=== PATIENT | female | born 1980 | race Caucasian/White ===

== ENCOUNTER → 2019-01-10 18:31 | Outpatient (CLI) | payer OTHER, SELFPAY ==
[2019-01-15 10:17] LABS: HPV Reflexed? NOT INDICATED
== END ==
PROVIDERS: Family Provider Family Medicine; PCP Family Medicine; Referring Provider Obstetrics & Gynecology; Visit Provider Obstetrics & Gynecology
DX: Z12.4 Encounter for screening for malignant neoplasm of cervix (principal)
CPT/HCPCS: 88175; G0145

== ENCOUNTER → 2020-05-15 | Outpatient (CLI) | payer OTHER, SELFPAY ==
--- NOTE | 2020-05-15 14:53 | BI_ITS ---
MAMMOGRAPHY - BILATERAL SCREENING REASON FOR EXAM: Female, 39 years old. Routine annual screening examination. PERTINENT HISTORY: Mother with breast cancer. Remote the left excisional breast biopsy. TECHNIQUE: Digital bilateral breast zak (3D mammographic acquisition) in the CC and MLO projections. 2-D mediolateral oblique (MLO) and craniocaudad (CC) views of both breasts were obtained. CAD: Full Field Digital Mammography with Computer Added Detection was performed. COMPARISON: Comparison is made with prior outside examination dated May 25, 2017. FINDINGS: Breast Composition: The breasts are extremely dense, which lowers the sensitivity of mammography. There are no dominant masses or suspicious calcifications. No other significant abnormalities are identified. There has been no significant change since the prior study. BI/SCREEN MAMM (CAD) W/ZAK BILAT IMPRESSION: Stable bilateral screening mammogram. Yearly follow-up mammogram recommended. (A) ASSESSMENT CATEGORY: BIRADS Category 1: Negative. A letter regarding these results will be sent to the patient by the facility within 30 days. Approximately 10% of breast cancers are not detected by mammography. A normal mammogram should not delay biopsy of a clinically suspicious abnormality. [id number] Electronically Signed: Nathan Spivey, at 7:59 EDT , Service support ,
== END | disposition home or self-care (01) ==
LOC: OPBI 14:50
PROVIDERS: PCP Family Medicine; Referring Provider Obstetrics & Gynecology; Visit Provider Obstetrics & Gynecology
DX: Z12.31 Encounter for screening mammogram for malignant neoplasm of breast (principal)
CPT/HCPCS: 77063; 77067

== ENCOUNTER → 2020-06-24 13:14 | Outpatient (CLI) | payer OTHER, SELFPAY ==
--- NOTE | 2020-06-24 13:28 | MRI_ITS ---
STUDY: BILATERAL BREAST MR WITHOUT AND WITH CONTRAST REASON FOR EXAM: Female, 39 years old. inconclusive mamm, dense breasts, no lumps or pain, prev lumpectomyleft breast TECHNIQUE: Multi-sequence multi-echo imaging of both breasts was performed with a dedicated breast coil. T1-weighted and T2-weighted images were performed before the administration of contrast. T1-weighted images were also performed after the administration of dotarem 13ml iv without complications. COMPARISON: FINDINGS: RIGHT BREAST: The breast tissue is with There are no abnormal enhancing masses or areas of non-mass enhancement in the right breast. LEFT BREAST: The breast tissue is with There are no abnormal enhancing masses or areas of non-mass enhancement in the left breast. There are no enlarged or abnormal lymph nodes. There is no abnormality in the visualized regions of the chest or liver. MRI/Breast Bilateral W/O and W IMPRESSION: Unremarkable breast MR examination with contrast. CATEGORY: Electronically Signed: Nathan Spivey, at 15:58 EDT , Service support ,
== END ==
PROVIDERS: PCP Physician Assistant; Referring Provider Obstetrics & Gynecology; Visit Provider Obstetrics & Gynecology
DX: R92.2 Inconclusive mammogram (principal); Z80.3 Family history of malignant neoplasm of breast
CPT/HCPCS: 77049; A9575; A4216; C8908

== ENCOUNTER → 2022-05-13 | Outpatient (CLI) | payer OTHER, SELFPAY ==
--- NOTE | 2022-05-13 08:22 | BI_ITS ---
MAMMOGRAPHY - BILATERAL SCREENING REASON FOR EXAM: Female, 41 years old. Routine annual screening examination. PERTINENT HISTORY: Mother with breast cancer. TECHNIQUE: Digital bilateral breast zak (3D mammographic acquisition) in the CC and MLO projections. 2-D mediolateral oblique (MLO) and craniocaudad (CC) views of both breasts were obtained. CAD: Full Field Digital Mammography with Computer Added Detection was performed. COMPARISON: Comparison is made with prior study 05/15/2020. FINDINGS: Breast Composition: The breasts are extremely dense, which lowers the sensitivity of mammography. There are no dominant masses or suspicious calcifications. No other significant abnormalities are identified. There has been no significant change since the prior study. BI/SCRN MAMM (CAD)W/ZAK BILAT IMPRESSION: Stable bilateral screening mammogram. Yearly follow-up mammogram recommended. (A) ASSESSMENT CATEGORY: BIRADS Category 1: Negative. A letter regarding these results will be sent to the patient by the facility within 30 days. Approximately 10% of breast cancers are not detected by mammography. A normal mammogram should not delay biopsy of a clinically suspicious abnormality. [id number] Electronically Signed: Nathan Spivey MD at 10:31 EDT ,
== END | disposition home or self-care (01) ==
LOC: OPBI 08:20
PROVIDERS: PCP Physician Assistant; Visit Provider Obstetrics & Gynecology
DX: Z12.31 Encounter for screening mammogram for malignant neoplasm of breast (principal); Z80.3 Family history of malignant neoplasm of breast
CPT/HCPCS: 77063; 77067

== ENCOUNTER → 2022-07-14 | Outpatient (CLI) | payer OTHER, SELFPAY ==
[2022-07-22 16:34] LABS: HPV APTIMA, High Risk Negative (Negative)
== END | disposition home or self-care (01) ==
LOC: LABSPEC 16:22
PROVIDERS: PCP Physician Assistant; Visit Provider Student in an Organized Health Care Education/Training Program
DX: Z12.4 Encounter for screening for malignant neoplasm of cervix (principal)
CPT/HCPCS: 87624; 88175; G0145

== ENCOUNTER → 2022-12-02 | Outpatient (CLI) | payer OTHER, SELFPAY ==
--- NOTE | 2022-12-02 12:27 | MRI_ITS ---
STUDY: BILATERAL BREAST MR WITHOUT AND WITH CONTRAST REASON FOR EXAM: Female, 42 years old. Family history of breast cancer. TECHNIQUE: Multi-sequence multi-echo imaging of both breasts was performed with a dedicated breast coil. T1-weighted and T2-weighted images were performed before the administration of contrast. T1-weighted images were also performed after the intravenous administration of 12 ml of Clariscan. COMPARISON: Screening mammogram dated May 13, 2022 and prior breast MRI with contrast dated June 24, 2020. FINDINGS: RIGHT BREAST: The breast is extremely dense. There are no abnormal enhancing masses or areas of non-mass enhancement in the right breast. LEFT BREAST: The breast is extremely dense. There are no abnormal enhancing masses or areas of non-mass enhancement in the left breast. There are no enlarged or abnormal lymph nodes. There is no abnormality in the visualized regions of the chest or liver. MRI/Breast Bilateral W/O and W IMPRESSION: No abnormality on the breast MRI with contrast. Alternating annual screening mammography with breast MRI with contrast, given the patient''s family history and the extremely dense background breast tissue is recommended. CATEGORY: BIRADS Category 2: Benign. A letter regarding these results will be sent to the patient by the facility within 30 days. Electronically Signed: Mateusz , at 10:03 EST ,
== END | disposition home or self-care (01) ==
PROVIDERS: PCP Physician Assistant; Referring Provider Student in an Organized Health Care Education/Training Program; Visit Provider Student in an Organized Health Care Education/Training Program
DX: R92.2 Inconclusive mammogram (principal); Z80.3 Family history of malignant neoplasm of breast
CPT/HCPCS: 77049; A9575; A4216; C8908

== ENCOUNTER → 2023-07-27 | Outpatient (CLI) | payer OTHER, SELFPAY ==
[2023-07-31 12:08] LABS: HPV APTIMA, High Risk Negative (Negative)
== END | disposition home or self-care (01) ==
PROVIDERS: PCP Physician Assistant; Referring Provider Student in an Organized Health Care Education/Training Program; Visit Provider Student in an Organized Health Care Education/Training Program
DX: Z12.4 Encounter for screening for malignant neoplasm of cervix (principal)
CPT/HCPCS: 87624; 88175; G0145

== ENCOUNTER 2025-06-02 14:00 | Emergency (ER) | payer OTHER, SELFPAY ==
[2025-06-02 14:01] VITALS: BP 94/75; PULSE 96; RESP 18; TEMP 36.6; O2SAT 98; BMI 21.9
--- OUTSIDE RECORDS SUMMARY | 2025-06-02 14:21 | XMS RPT_ITS | CCD ---
Author Organization [facility] Care Team Providers Care Sr Account Executive Name Role Phone JAEDN MERRITT Admitting Unavailable JADEN MERRITT Attending Unavailable JADEN MERRITT Primary Care Unavailable ESSENCE SANTOS Consulting Unavailable PROVIDER, UNKNOWN Consulting Unavailable PROVIDER, UNKNOWN Consulting Unavailable PROVIDER, UNKNOWN Consulting Unavailable RENÉ STANLEY MD Admitting Unavailable RENÉ STANLEY MD Attending Unavailable RENÉ STANLEY MD Primary Care Unavailable VACCARIELLO, MOHAMUD Consulting Unavailable PROVIDER, UNKNOWN Consulting Unavailable PROVIDER, UNKNOWN Consulting Unavailable PROVIDER, UNKNOWN Consulting Unavailable RENÉ STANLEY MD Admitting Unavailable RENÉ STANLEY MD Attending Unavailable RENÉ STANLEY MD Primary Care Unavailable VACCARIELLO, MOHAMUD Consulting Unavailable PROVIDER, UNKNOWN Consulting Unavailable PROVIDER, UNKNOWN Consulting Unavailable PROVIDER, UNKNOWN Consulting Unavailable RENÉ STANLEY MD Admitting Unavailable RENÉ STANLEY MD Attending Unavailable RENÉ STANLEY MD Primary Care Unavailable VACCARIELLO, MOHAMUD Consulting Unavailable PROVIDER, UNKNOWN Consulting Unavailable PROVIDER, UNKNOWN Consulting Unavailable PROVIDER, UNKNOWN Consulting Unavailable RENÉ STANLEY MD Admitting Unavailable RENÉ STANLEY MD Attending Unavailable RENÉ STANLEY MD Primary Care Unavailable VACCARIELLO, MOHAMUD Consulting Unavailable PROVIDER, UNKNOWN Consulting Unavailable PROVIDER, UNKNOWN Consulting Unavailable PROVIDER, UNKNOWN Consulting Unavailable VACCARIELLO, MOHAMUD Consulting Unavailable JADEN MERRITT Admitting Unavailable JADEN MERRITT Attending Unavailable JADEN MERRITT Primary Care Unavailable PROVIDER, UNKNOWN Consulting Unavailable PROVIDER, UNKNOWN Consulting Unavailable PROVIDER, UNKNOWN Consulting Unavailable Fernando Shaw MD Primary Care Provider Pcp MINE CAR MECHANIC, No Primary Care Provider UnavailLeila Pryor Primary Care Unavailable Kristi Muñoz Referring Unavailable Kristi Muñoz Attending Unavailable Kristi Muñoz Referring Unavailable Kristi Muñoz Attending Unavailable Leila Wells Primary Care Unavailable Mohamud Hills MD Unavailable [phone] Trever GRIFFITH, Yana Unavailable Viry Apodaca PA-C Unavailable Jolie DHILLON, Gueramali Shobha Unavailable [phone] Dick TRACEYN, Rena Unavailable Unavailable Oj TRACEYN, Bill Unavailable Unavailable Uptain CNM, Bernie K Unavailable Unavailable Unavailable Lynn FOUNTAIN, Saskia Smith Unavailable Unavaila ble Unavailable Primary Care Provider UnavailJULIANNE Lezama Referring Unavailable JOSH ROMERO Referring Unavailable HAJULIANNE MCELROY Referring Unavailable HAJULIANNE MCELROY Attending Unavailable CHERRY MILLER Referring Unavailable ROSELYN PINK Referring Unavailable HAURY, JULIANNE Referring Unavailable Allergies Allergy Classification Reported Allergen(s) Allergy Type Date of Onset Reaction(s) Facility (1 source) OTHER; Translations: [OTHER] Propensity to adverse reactions (disorder) 1 [facility] Rep[facility] Medications Current Medications Medication Drug Class(es) Dates Sig (Normalized) Sig (Original) benzonatate 100 mg oral capsule (10 sources) Non-narcotic Antitussive Start: 12-21-2024 take 1 capsule by mouth every eight hours as needed benzonatate (TESSALON PERLE) 100 mg capsule Take 1 capsule by mouth three times a day as needed for cough. 21 capsule 12/21/2024 Active Start: 12-07-2023 End: 06-05-2024 benzonatate 100 mg capsule ; 1 (one) capsule three times daily PRN cough for 0 days Quantity: 30 {Capsule} Refills: 0 Ordered: 05-Jun-2024 АЛЕКСАНДР Bailey Start: 07-Dec-2023 End: 05-Jun-2024 Status: Inactive Start: 04-14-2022 End: 05-08-2022 take 1 capsule by mouth three times daily as needed Tessalon Perles 100 MG Oral Capsule ; 1 (one) Cap three times daily as needed for cough for 0 days Quantity: 30 {Capsule} Refills: 0 Ordered: 08-May-2022 NACHO Perera Start: 14-Apr-2022 End: 08-May-2022 Status: Inactive Comments: Medication taken as needed. swallow whole Comment on above: Medication taken as needed. swallow whole doxycycline hyclate 100 mg oral tablet (1 source) Tetracycline-class Drug Start: 4 End: 4 take 1 tablet by mouth twice daily doxycycline (VIBRA-TABS) 100 mg tablet Indications: Rhinosinusitis Take 1 tablet by mouth two times a day for 7 days. 14 tablet 10/13/2024 10/20/2024 Active drospirenone / Ethinyl Estradiol (9 sources) Progestin, Estrogen End: 4 take 1 tablet by mouth once daily Drospirenone-Ethinyl Estradiol (VESTURA, 28,) 3-0.02 mg per tablet Take 1 tablet by mouth once daily. 0 06/29/2024 Discontinued take 1 tablet by mouth once lorena y Gianvi 3-0.02 MG Oral Tablet ; One tablet daily (3-0.02 MG) Status: Inactive Vestura 3-0.02 M G Oral Tablet ; (3-0.02 MG) Status: Inactive loratadine 10 mg oral tablet (1 source) Start: 09-16-2013 End: 06-29-2024 take 1 tablet by mouth once daily loratadine (CLARITIN) 10 mg tablet Take 1 tablet by mouth once daily. 30 tablet 11 09/16/2013 06/29/2024 Discontinued norethindrone 0.35 mg oral tablet (20 sources) Start: 06-29-2024 End: 06-29-2024 take 1 tablet by mouth every twenty-four hours Norethindrone, Contraceptive, 0.35 mg tablet Take 1 tablet by mouth every 24 hours. 90 tablet 3 06/29/2024 Active take 1 tablet by mouth once lorena y Norethindrone 0.35 MG Oral Tablet ; 1 daily (0.35 MG) predniSONE 10 mg oral tablet (2 sources) Start: 12-21-2024 predniSONE (DELTASONE) 10 mg tablet Take 4 tabs daily for 3 days, then 2 tabs daily for 3 days, then 1 tab daily for 3 days with food. 21 tablet 12/21/2024 Active triamcinolone acetonide 0.055 mg/actuat metered dose nasal spray (2 sources) Corticosteroid Start: 12-21-2024 take 2 spray(s) nasal route once daily triamcinolone acetonide (NASACORT ALLERGY) 55 mcg nasal inhaler Use 2 Sprays in each nostril once daily. 16.9 mL 12/21/2024 Active Completed/Discontinued Medications Medication Drug Class(es) Dates Sig (Normalized) Sig (Original) amoxicillin 875 mg / clavulanate 125 mg oral tablet (4 sources) Penicillin-class Antibacterial Start: 04-14-2022 End: 04-24-2022 take 1 tablet by mouth twice daily Amoxicillin-Pot Clavulanate 875-125 MG Oral Tablet ; 1 (one) Tablet two times daily for 10 days Quantity: 20 {Tablet} Refills: 0 Ordered: 14-Apr-2022 JACQUIE Apodaca Start: 14-Apr-2022 End: 24-Apr-2022 Status: Inactive EPINEPHrine 0.01 mg/ml / lidocaine hydrochloride 10 mg/ml injectable solution (1 source) Antiarrhythmic, alpha-Adrenergic Agonist, beta-Adrenergic Agonist, Catecholamine, Amide Local Anesthetic Start: 11-21-2024 End: 11-21-2024 SUBCUTANEOUS, X (OR/PROCEDURE) PRN, Starting on Wed11/21/24 at 1100, Until Wed11/21/24 at 1100, Intraprocedure ISOtretinoin 30 mg oral capsule (4 sources) Retinoid take 1 capsule by mouth once daily Absorica 30 MG Oral Capsule ; One capsule daily (30 MG) Status: Inactive 10 ml lidocaine hydrochloride 10 mg/ml injection (1 source) Antiarrhythmic, Amide Local Anesthetic Start: 11-21-2024 End: 11-21-2024 SUBCUTANEOUS, X (OR/PROCEDURE) PRN, Starting on Wed11/21/24 at 1058, Until Wed11/21/24 at 1058, Intraprocedure Problems Active Problems Problem Classification Problem Date Documented Date Episodic/Chronic Allergic reactions (1 source) Allergic contact dermatitis due to drugs in contact with skin; Translations: [Allergic contact dermatitis due to drugs in contact with skin] Onset: 01-10-2020 Episodic Endometriosis (4 sources) Endometriosis (clinical); Translations: [Endometriosis, unspecified] 12-07-2023 Chronic Comment on above: follows with gaming surveillance observer Genitourinary symptoms and ill-defined conditions (4 sources) Genuine stress incontinence; Translations: [Stress incontinence (female) (male)] 06-05-2024 Chronic Headache; including migraine (17 sources) Migraine; Translations: [Migraine, unspecified, not intractable, without status migrainosus] Onset: 05-28-2011 11-10-2021 Chronic Immunizations and screening for infectious disease (1 source) Patient encounter status; Translations: [Encounter for screening for human papillomavirus (HPV)] 06-29-2024 Episodic Other aftercare (4 sources) Other residential (current) drug therapy; Translations: [Other residential (current) drug therapy] Onset: 10-02-2019 Episodic Other lower respiratory disease (2 sources) Cough; Translations: [Acute cough] 10-13-2024 Episodic Other non-traumatic joint disorders (4 sources) Pain of left wrist; Translations: [Pain in left wrist] 01-23-2020 Episodic Other skin disorders (4 sources) Other acne; Translations: [Other acne] Onset: 10-02-2019 Episodic Other skin disorders (1 source) Acne excoriee; Translations: [Acne excoriee] Onset: 01-10-2020 Episodic Other upper respiratory infections (5 sources) Sinusitis; Translations: [Chronic sinusitis, unspecified] 04-14-2022 Chronic Other upper respiratory infections (8 sources) Sore throat symptom; Translations: [Acute pharyngitis, unspecified] 12-07-2023 Episodic Residual codes; unclassified (12 sources) Body mass index 20-24 - normal; Translations: [Body mass index (BMI) 21.0-21.9, adult] 12-07-2023 Episodic Residual codes; unclassified (8 sources) History of vaccination; Translations: [Personal history of other drug therapy] 12-07-2023 Episodic Residual codes; unclassified (12 sources) Family history of malignant neoplasm of breast in first degree relative; Translations: [Family history of malignant neoplasm of breast] 12-07-2023 Episodic Comment on above: estrogen based Residual codes; unclassified (8 sources) Non-smoker; Translations: [Other specified health status] 12-07-2023 Episodic Residual codes; unclassified (12 sources) Patient refused laboratory test; Translations: [Procedure and treatment not carried out because of patient's decision for other reasons] 12-07-2023 Episodic Residual codes; unclassified (2 sources) Past history of procedure; Translations: [Other specified postprocedural states] 05-02-2025 Episodic Unclassified (4 sources) Number of Children 05-11-2022 Comment on above: 1. Unclassified (4 sources) Number of Pregnancies 05-11-2022 Comment on above: 2. Unclassified (4 sources) Vaginal deliveries 05-11-2022 Comment on above: 1. Unclassified (1 source) Subacute cough; Translations: [Subacute cough] Onset: 12-21-2024 Unclassified (1 source) Acute cough; Translations: [Acute cough] Onset: 10-13-2024 Unclassified (1 source) Dense breast tissue; Translations: [Dense breast tissue] Onset: 08-17-2024 Past or Other Problems Problem Classification Problem Date Documented Date Episodic/Chronic Nonmalignant breast conditions (12 sources) Breast finding ; Translations: [Dense breast tissue] Onset: 10-25-2024 06-29-2024 Episodic Other lower respiratory disease (11 sources) Cough; Translations: [Cough] Onset: 10-13-2024 12-07-2023 Episodic Other screening for suspected conditions (not mental disorders or infectious disease) (20 sources) Encounter for screening for malignant neoplasm of cervix; Translations: [Inconclusive mammogram] Onset: 12-14-2022 04-22-2023 Episodic Residual codes; unclassified (17 sources) Family history of breast cancer; Translations: [Family history of malignant neoplasm of breast] Onset: 06-29-2024 06-29-2024 Episodic Residual codes; unclassified (7 sources) At high risk for breast cancer; Translations: [Other specified personal risk factors, not elsewhere classified] Onset: 10-25-2024 10-25-2024 Episodic Unclassified (4 sources) Cold Symptoms - Symptoms include nasal congestion, sore throat, dry cough, fever (Wednesday 100.3) and facial pain. The onset was 5 day(s) ago. The symptoms occur constantly. The patient describes this as mild and worsening. Current treatment includes non-prescription cold medication (Robitussin and AlkaSelzter Cold/Flu) and cough suppressants. The patient has been exposed to an individual with strep (son DX:last Wednesday). Note for Upper respiratory infection: Negative rapid home COVID test this morning. 12-07-2023 Unclassified (8 sources) Well adult female - The patient feels well with no complaints, has good energy level and is sleeping well. The current method of contraception is: oral contraceptives (for endometriosis sx) and partner had vasectomy. The patient takes no supplemental vitamins & iron. The patient exercises daily. The patient sleeps 7 hours per night. 04-28-2023 Unclassified (4 sources) Cold Symptoms - Symptoms include nasal congestion, runny nose, productive cough (spitting a little mucus up-- is having coughing fits where she coughs hard enough to vomit), headache and facial pain, but do not include ear pain, sore throat, fever, chills or general malaise. The onset was gradual 2 week(s) ago. The symptoms occur constantly. The patient describes this as moderate in severity and worsening (past 2-3 days have been worse). Current treatment includes non-prescription cold medication (alkaselzer cold and flu and sinus) and cough suppressants. Risk factors do not include smoking. The patient has not been exposed to an individual with a cough, an individual with an upper respiratory infection, an individual with similar symptoms, an individual with strep or secondhand smoke. Medical history includes seasonal allergies, but patient denies history of recurrent sinusitis, recurrent strep pharyngitis, asthma, tonsillectomy or recurrent ear infections. Note for Upper respiratory infection: Patient reports negative home COVID test approximately one week ago. 04-14-2022 Unclassified (4 sources) Well adult female - The patient feels well with minor complaints (wrist pain). The first day of the last menstrual period was : (irregular d/t bc). The current method of contraception is: oral contraceptives. The patient has a balanced diet. The patient exercises 3 - 4 times per week (Crossfit). The patient sleeps 8 hours per night. 01-23-2020 Unclassified (1 source) Well adult female - The patient feels well with no complaints, has good energy level and is sleeping well. The first day of the last menstrual period was : (about 1 month ago, unsure of exact date). The current method of contraception is: oral contraceptives. The patient has a balanced diet and takes supplemental vitamins. The patient exercises daily (going to gym 3-4 times a week and then at home walking daily). The patient sleeps 8 (8 or more) hours per night. Note for Well adult female: Last Pap 07/27/2013 Normal Negative HPV.Last Mammogram 12/02/2022.No previous colon cancer screening. She is fasting today.She has an upcoming appt with SCORE CALLER at [facility] in [place]. 06-05-2024 Unclassified (2 sources) Well adult female - The patient feels well with minor complaints, has good energy level and is sleeping well. The first day of the last menstrual period was : (about 1 month ago, unsure of exact date). The current method of contraception is: oral contraceptives. The patient has a balanced diet and takes supplemental vitamins. The patient exercises daily (going to gym 3-4 times a week and then at home walking daily). The patient sleeps 8 (8 or more) hours per night. Note for Well adult female: Last Pap 07/27/2023 Normal Negative HPV.Last Mammogram 12/02/2022. Patient gets mammogram orders through gynecology.No previous colon cancer screening. She is fasting today.She has an upcoming appt with SCORE CALLER at [facility] in [place].Patient does report noting some urinary frequency and leaking small amounts of urine sometimes when jumping, running, or sneezing. This has been going on for approximately a year and has remained stable in that time. She reports that it happens only occasionally, but she has started wearing a pad when she works out just in case. She denies any dysuria, urgency, abdominal pain, or pelvic fullness. 06-05-2024 Results Test Name Value Interpretation Reference Range Facility [facility] 04-26-2025 JONAS Telephone (AUGUSTGYWMnaisha) ROSALVA DUPONT ([id number]) 1980 F Date Time Provider Department 04/26/25 JULIANNE VALENTIN During your visit today, we recorded the following information about you: Liliana Pineda LPN 04/26/2025 10:28 AM Signed Patient called requesting order for follow up mammogram after having breast bx on 11/21/2024. Patient said that she received a call saying she need f/u imaging in 6 months. Breast bx results from 11/21/24 mention return to yearly screening. Please advise. Julianne Valentin APRN.CNP 04/26/2025 10:35 AM Signed Phone note 11/24/24 states: Called pt to inform her the breast pathology results are benign per Dr. Gomes. Pt. was told to F/U with further imaging in 6 months. She verbalized understanding. Pathology report recommends screening in 6 months. Can we confirm with Dr. Gomes's office whether diagnostic vs screening imaging is indicated at this time? Julianne Valentin APRN.MAUREEN Rena [place] 05/03/2025 9:19 AM Signed Spoke with patient and she wanted to check with her insurance before scheduling because she doesn't think they will cover it. Allergies As of Date: 04/26/2025 (No Known Allergies) Date Reviewed: 11/21/2024 Reviewed by: Cherry Bauer Tech - Fully Assessed Reason for Visit: Orders [681] Primary Visit Diagnosis:Abnormal mammogram [R92.8] Other Visit Diagnosis:History of breast biopsy [Z98.890] Order(s):[facility] DIAGNOSTIC BILATERAL [[id number]] Order #: [id number] FUTURE BREAST LTD LEFT [[id number]] Order #: [id number] FUTURE Prescriptions as of 05/03/2025 - triamcinolone acetonide (NASACORT ALLERGY) 55 mcg nasal inhaler Use 2 Sprays in each nostril once daily. - predniSONE (DELTASONE) 10 mg tablet Take 4 tabs daily for 3 days, then 2 tabs daily for 3 days, then 1 tab daily for 3 days with food. - benzonatate (TESSALON PERLE) 100 mg capsule Take 1 capsule by mouth three times a day as needed for cough. - Norethindrone, Contraceptive, 0.35 mg tablet Take 1 tablet by mouth every 24 hours. Problem List As Of Date 04/26/2025 Noted Resolved Migraine [G43.909] 05/28/2011 Family history of malignant neoplasm of breast *06/29/2024 Dense breast [R92.30] 10/25/2024 At high risk for breast cancer [Z91.89] 10/25/2024 Encounter Status:Closed by JULIANNE VALENTIN on 05/02/25 Normal [facility] CNOVon 12-21-2024 CNOV Office Visit (UCWSTR ) ROSALVA DUPONT ([id number]) 1980 F Date Time Provider Department 12/21/24 12:00 PM CHERRY MILLER [facility] During your visit today, we recorded the following information about you: Temperature Pulse Respiration Blood pressure 98.5 degrees 82/minute 12/minute 102/66 Weight 62.1 kg Cherry Miller APRN.BURRER MARKER AXLE 12/21/2024 12:29 PM Signed This note was created using NoteWriter. Subjective Rosalva Dupont is a 44 year old female. 44 year old female with PMH migraine presents for cough Acute onset mid September +cough +chest congestion +productive at times and then non productive at others Denies accompanying URI sx Denies fever or chills Denies CP Denies dyspnea Denies abdominal pain Has tried OTC Seen last month for similar Was seen here late September for same Denies follow up with PCP Denies tobacco usage The history is provided by the patient. No speech language pathologist prn was used. Cough This is a recurrent problem. The current episode started more than 1 week ago. The problem occurs constantly. The problem has been gradually worsening. Cough characteristics: productive at times and non productive at others. There has been no fever. Pertinent negatives include no chest pain, no chills, no sweats, no weight loss, no ear congestion, no ear pain, no headaches, no rhinorrhea, no sore throat, no myalgias, no shortness of breath, no wheezing and no eye redness. She has tried nothing for the symptoms. She is not a smoker. Her past medical history does not include bronchitis, pneumonia, bronchiectasis, COPD, emphysema or asthma. PAST MEDICAL HISTORY Diagnosis Date At high risk for breast cancer 10/25/2024 October 25, 2024 Based on the Tyrer-Cuzick (TC) risk assessment model, this patient has a 21.7% lifetime risk of developing breast cancer Julianne Valentin, ZENON.BURRER MARKER AXLE Dense breast 10/25/2024 Migraine PAST SURGICAL HISTORY Procedure Laterality Date PAST SURGICAL HISTORY OF 2002 benign lump, left breast, [facility] ALLERGIES Patient has no known allergies. MEDICATIONS Norethindrone, Contraceptive, 0.35 mg tablet Take 1 tablet by mouth every 24 hours. triamcinolone acetonide (NASACORT ALLERGY) 55 mcg nasal inhaler Use 2 Sprays in each nostril once daily. predniSONE (DELTASONE) 10 mg tablet Take 4 tabs daily for 3 days, then 2 tabs daily for 3 days, then 1 tab daily for 3 days with food. benzonatate (TESSALON PERLE) 100 mg capsule Take 1 capsule by mouth three times a day as needed for cough. FAMILY HISTORY Problem Relation Age of Onset Breast Cancer Mother Early 40s, in remission Prostate Cancer Father Alzheimer's Disease Maternal Grandmother late in life Cancer Paternal Aunt brain tumor Colon Cancer Other none Coronary Artery Disease Other none Diabetes Other none Social History Tobacco Use Smoking status: Never Smokeless tobacco: Never Substance Use Topics Alcohol use: No Drug use: No Review of Systems Constitutional: Negative for chills and weight loss. HENT: Positive for congestion. Negative for ear pain, rhinorrhea and sore throat. Eyes: Negative for redness. Respiratory: Positive for cough. Negative for shortness of breath and wheezing. Cardiovascular: Negative for chest pain. Gastrointestinal: Negative for abdominal pain, diarrhea, nausea and vomiting. Musculoskeletal: Negative for arthralgias, back pain and myalgias. Skin: Negative for color change, pallor and rash. Allergic/Immunologic: Negative for environmental allergies and food allergies. Neurological: Negative for dizziness, facial asymmetry and headaches. Hematological: Negative for adenopathy. Does not bruise/bleed easily. Psychiatric/Behavioral : Negative for agitation and behavioral problems. Objective BP 102/66 Pulse 82 Temp 36.9 ?C (98.5 ?F) Resp 12 Wt 62.1 kg (136 lb 14.5 oz) LMP (LMP Unknown) SpO2 96% BMI 20.82 kg/m? Physical Exam Vitals and nursing note reviewed. Constitutional: General: She is not in acute distress. Appearance: Normal appearance. She is normal weight. She is not ill-appearing, toxic-appearing or diaphoretic. HENT: Head: Normocephalic and atraumatic. Right Ear: Ear canal and external ear normal. Left Ear: Ear canal and external ear normal. Nose: Nose normal. No congestion or rhinorrhea. Mouth/Throat: Mouth: Mucous membranes are moist. Pharynx: No oropharyngeal exudate or posterior oropharyngeal erythema. Eyes: General: Right eye: No discharge. Left eye: No discharge. Extraocular Movements: Extraocular movements intact. Conjunctiva/sclera: Conjunctivae normal. Pupils: Pupils are equal, round, and reactive to light. Cardiovascular: Rate and Rhythm: Normal rate and regular rhythm. Pulses: Normal pulses. Heart sounds: Normal heart sounds. No murmur heard. No friction rub. Pulmonary: Effort (more content not included)... Normal [facility] XR CHEST 2V FRONTAL/LATon XR CHEST 2V FRONTAL/LAT * * *Final Report* * * DATE OF EXAM: Dec 21 2024 12:11PM WOX [id number] - XR CHEST 2V FRONTAL/LAT / PROCEDURE REASON: Subacute cough * * * * Physician Interpretation * * * * EXAMINATION: CHEST RADIOGRAPH (2 VIEW FRONTAL and LATERAL) PATIENT/TECHNOLOGIST PROVIDED HISTORY: sick for 3 weeks, was seen last month and not improving, still has cough and congestion CLINICAL HISTORY: 44 years old Female with Subacute cough MQ: [id number] EXAM DATE/TIME: 12/21/2024 12:11 PM COMPARISON: Chest radiograph(s) dated 10/13/2024 RESULT: Lines, tubes, and devices: None. Lungs and pleura: No consolidation, pleural effusion or pneumothorax. Symmetric nodular densities projecting over the mid-lower lungs similar to prior exam representing nipple shadows. Cardiomediastinal silhouette: Normal cardiomediastinal silhouette. Bones and soft tissues: Unremarkable. IMPRESSION: No acute radiographic abnormality. Electrical Linesworker: PSCB Transcribe Date/Time: Dec 21 2024 12:15P Dictated by : ANASTASIA MASON DO This examination was interpreted and the report reviewed and electronically signed by: ANASTASIA MASON DO on Dec 21 2024 12:17PM EST [id number] [facility] XR Chest PA and Lateralon Radiology Study observation (narrative) [facility] IMPRESSION: No acute radiographic abnormality. Electrical Linesworker: PSCB Transcribe Date/Time: Dec 21 2024 12:15P Dictated by : ANASTASIA MASON DO This examination was interpreted and the report reviewed and electronically signed by: ANASTASIA MASON DO on Dec 21 2024 12:17PM [facility] DIVISION OF RADIOLOGY * * *Final Report* * * DATE OF EXAM: Dec 21 2024 12:11PM WOX 5291 - XR CHEST 2V FRONTAL/LAT / PROCEDURE REASON: Subacute cough * * * * Physician Interpretation * * * * EXAMINATION: CHEST RADIOGRAPH (2 VIEW FRONTAL & LATERAL) PATIENT/TECHNOLOGIST PROVIDED HISTORY: sick for 3 weeks, was seen last month and not improving, still has cough and congestion CLINICAL HISTORY: 44 years old Female with Subacute cough MQ: XC2_6 EXAM DATE/TIME: 12/21/2024 12:11 PM COMPARISON: Chest radiograph(s) dated 10/13/2024 RESULT: Lines, tubes, and devices: None. Lungs and pleura: No consolidation, pleural effusion or pneumothorax. Symmetric nodular densities projecting over the mid-lower lungs similar to prior exam representing nipple shadows. Cardiomediastinal silhouette: Normal cardiomediastinal silhouette. Bones and soft tissues: Unremarkable. DIVISION [facility]OLOGY [facility] * * *Final Report* * * DATE OF EXAM: Dec 21 2024 12:11PM WOX 5291 - XR CHEST 2V FRONTAL/LAT / PROCEDURE REASON: Subacute cough * * * * Physician Interpretation * * * * EXAMINATION: CHEST RADIOGRAPH (2 VIEW FRONTAL & LATERAL) PATIENT/TECHNOLOGIST PROVIDED HISTORY: sick for 3 weeks, was seen last month and not improving, still has cough and congestion CLINICAL HISTORY: 44 years old Female with Subacute cough MQ: XC2_6 EXAM DATE/TIME: 12/21/2024 12:11 PM COMPARISON: Chest radiograph(s) dated 10/13/2024 RESULT: Lines, tubes, and devices: None. Lungs and pleura: No consolidation, pleural effusion or pneumothorax. Symmetric nodular densities projecting over the mid-lower lungs similar to prior exam representing nipple shadows. Cardiomediastinal silhouette: Normal cardiomediastinal silhouette. Bones and soft tissues: Unremarkable. IMPRESSION IMPRESSION: No acute radiographic abnormality. Electrical Linesworker: ARACELI Transcribe Date/Time: Dec 21 2024 12:15P Dictated by : ANASTASIA MASON DO This examination was interpreted and the report reviewed and electronically signed by: ANASTASIA MASON DO on Dec 21 2024 12:17PM EST [facility] XR Chest PA and LateralOrder ed By: Ccf Provider on 12-21-2024 [facility] CNPN Telephone (RADMN) ROSALVA DUPONT ([id number]) 1980 F Date Time Provider Department 11/24/24 DILCIA HENDERSONWY During your visit today, we recorded the following information about you: Allergies As of Date: 11/24/2024 (No Known Allergies) Date Reviewed: 11/21/2024 Reviewed by: Cherry Bauer Tech - Fully Assessed Reason for Visit: Results [95] Prescriptions as of 11/24/2024 - Norethindrone, Contraceptive, 0.35 mg tablet Take 1 tablet by mouth every 24 hours. Problem List As Of Date 11/24/2024 Noted Resolved Migraine [G43.909] 05/28/2011 Family history of malignant neoplasm of breast *06/29/2024 Dense breast [R92.30] 10/25/2024 At high risk for breast cancer [Z91.89] 10/25/2024 Encounter Status:Closed by DILCIA HENDERSON on 11/24/24 [facility] IVA STEREO BX BREAST LTon IVA STEREO BX BREAST LT * * *Final Report* * * * * * SEE BOTTOM OF REPORT FOR ADDENDED TEXT * * * DATE OF EXAM: Nov 21 2024 11:31AM [facility] 0630 - IVA STEREO BX BREAST LT / PROCEDURE REASON: Breast disorder * * * * Physician Interpretation * * * * RESULT: [place] [id number] [facility] [address] [place] [address] - - - - - - - - - - ADDENDED REPORT - - - - - - - - - - 11/22/2024 at 13:11:12 Addendum: The final pathology results of the patient's stereotactic core biopsy demonstrate the following: Site 1 - (left breast) A. Breast, Left, Lower-Outer Quadrant, Calcifications, Stoplight Clip, Stereotactic Core Biopsy: ---Benign Breast Parenchyma With Fibrocystic Changes Including Adenosis, Columnar Cell Change, and Apocrine Metaplasia. ---Microcalcifications , Including Calcium Oxalate Crystals, Are Present Within Benign Breast. Electronically Signed By Beau Patrick MD On 11/22/2024 at 11:08 Am This is concordant with the imaging findings. RECOMMENDATION Site 1: Return to screen A breast imaging nurse navigator contacted the patient with the results and recommendations. Return to annual imaging schedule is recommended. The patient was notified of the above results via telephone on 11/22/2024. Interpreting Radiologist: Mariama Barrera M.D. Electronically signed on: 11/22/2024 - - - - - - - - - - ORIGINAL REPORT - - - - - - - - - - #[id number] - IVA STEREO BX BREAST LT HISTORY: 44 year old patient presents for a stereotactic biopsy of the following: Site 1: Grouped calcifications located in the left breast in the lower outer quadrant, posterior depth PATIENT CONSENT: A time out was performed immediately prior to procedure start with the radiology team, correctly identifying the patient name, date of , procedure, anatomy (including marking of site and side), patient position, relevant diagnostic and radiology test results, safety precautions, and procedure-specific equipment needs. The procedure, along with the risks (including, but not limited to, infection and bleeding), benefits, and alternatives, was explained to the patient by the performing physician. The patient agreed to undergo the procedure. Medications and allergies were also reviewed. The radiologist, assisting radiologist, and technologist were present throughout the entire procedure. PROCEDURE: Correlation is made to exams dated: 08/17/2024 (mammogram) and 10/24/2024 (mammogram). Site 1: Grouped calcifications located in the left breast in the lower outer quadrant, posterior depth The senior sales assistant radiologist was Charlie Scott DO. The senior sales assistant radiologist administered local anesthesia, performed the tissue sampling and placed the biopsy marker. Audible Time Out: 10:56 Procedure Start: 10:58 Procedure End: 11:04 A stereotactic biopsy was performed for the grouped calcifications located in the left breast in the lower outer quadrant, posterior depth. This was described on the previous mammography report. The skin was prepped in the usual manner. The abnormality was approached from the lateral aspect using a prone table. 15 ml of local anesthetic agent was administered. A petite 9 gauge biopsy needle was placed adjacent to the grouped calcifications under computer guidance and confirmatory stereotactic mammography images were obtained to document needle placement. Once the needle was documented to be in the correct location, 6 samples were obtained using the vacuum-assisted system. A stoplight biopsy marker was then placed under mammogram guidance. A skin closure strip and a sterile dressing were applied to the access site. A second stoplight biopsy clip had to be placed as the initial clip became affixed to and was removed with the introducer. The initial post placement zak image demonstrated appropriate placement within the calcifications on the MLO view only, limiting assessment for placement location. The specimen was sent to the laboratory for pathological analysis. Patient experienced dizziness and a brief vasovagal episode upon getting up from the prone position of the biopsy table. This resolved with a brief rest and water/snack, and there were no further complications. Post-procedure mammogram density: The breasts are extremely dense, which lowers the sensitivity of mammography. IMPRESSION: STEREOTACTIC GUIDED BIOPSY Site 1: Stereotactic biopsy of grouped calcifications located in the left breast in the lower outer quadrant, posterior depth with placement of a stoplight biopsy marker. The specimen radiograph includes calcifications. Procedure successful with minor complication of brief vasovagal episode, resolving spontaneously after supportive measure as described. Interpreting Radiologist: Mariama Barrera M.D. Electronically signed on: 11/21/2024 Electrical Linesworker: [place] Transcribe Date/Time: Nov 21 2024 10:33A Dict (more content not included)... [facility] stereo Guidance for biops y of Breast - lefton 11-21-2024 IMPRESSION: STEREOTACTIC GUIDED BIOPSY Site 1: Stereotactic biopsy of grouped calcifications located in the left breast in the lower outer quadrant, posterior depth with placement of a stoplight biopsy marker. The specimen radiograph includes calcifications. Procedure successful with minor complication of brief vasovagal episode, resolving spontaneously after supportive measure as described. Interpreting Radiologist: Mariama Barrera M.D. Electronically signed on: 11/21/2024 Electrical Linesworker: [place] Transcribe Date/Time: Nov 21 2024 10:33A Dictated by : CHARLIE SCOTT DO This examination was interpreted and the report reviewed and electronically signed by: MARIAMA BARRERA MD on Nov 21 2024 1:00PM [facility] DIVISION OF RADIOLOGY * * *Final Report* * * DATE OF EXAM: Nov 21 2024 11:31AM [facility] 0630 - IVA STEREO BX BREAST LT / PROCEDURE REASON: Breast disorder * * * * Physician Interpretation * * * * RESULT: [address] [place] [address] #[id number] - IVA STEREO BX BREAST LT HISTORY: 44 year old patient presents for a stereotactic biopsy of the following: Site 1: Grouped calcifications located in the left breast in the lower outer quadrant, posterior depth PATIENT CONSENT: A time out was performed immediately prior to procedure start with the radiology team, correctly identifying the patient name, date of , procedure, anatomy (including marking of site and side), patient position, relevant diagnostic and radiology test results, safety precautions, and procedure-specific equipment needs. The procedure, along with the risks (including, but not limited to, infection and bleeding), benefits, and alternatives, was explained to the patient by the performing physician. The patient agreed to undergo the procedure. Medications and allergies were also reviewed. The radiologist, assisting radiologist, and technologist were present throughout the entire procedure. PROCEDURE: Correlation is made to exams dated: 08/17/2024 (mammogram) and 10/24/2024 (mammogram). Site 1: Grouped calcifications located in the left breast in the lower outer quadrant, posterior depth The senior sales assistant radiologist was Charlie Scott DO. The senior sales assistant radiologist administered local anesthesia, performed the tissue sampling and placed the biopsy marker. Audible Time Out: 10:56 Procedure Start: 10:58 Procedure End: 11:04 A stereotactic biopsy was performed for the grouped calcifications located in the left breast in the lower outer quadrant, posterior depth. This was described on the previous mammography report. The skin was prepped in the usual manner. The abnormality was approached from the lateral aspect using a prone table. 15 ml of local anesthetic agent was administered. A petite 9 gauge biopsy needle was placed adjacent to the grouped calcifications under computer guidance and confirmatory stereotactic mammography images were obtained to document needle placement. Once the needle was documented to be in the correct location, 6 samples were obtained using the vacuum-assisted system. A stoplight biopsy marker was then placed under mammogram guidance. A skin closure strip and a sterile dressing were applied to the access site. A second stoplight biopsy clip had to be placed as the initial clip became affixed to and was removed with the introducer. The initial post placement zak image demonstrated appropriate placement within the calcifications on the MLO view only, limiting assessment for placement location. The specimen was sent to the laboratory for pathological analysis. Patient experienced dizziness and a brief vasovagal episode upon getting up from the prone position of the biopsy table. This resolved with a brief rest and water/snack, and there were no further complications. Post-procedure mammogram density: The breasts are extremely dense, which lowers the sensitivity of mammography. DIVISION OF RADIOLOGY Provider, [facility] - 11/21/2024 * * *Final Report* * * DATE OF EXAM: Nov 21 2024 11:31AM [facility] 0630 - IVA STEREO BX BREAST LT / PROCEDURE REASON: Breast disorder * * * * Physician Interpretation * * * * RESULT: [place] [address] #[id number] - IVA STEREO BX BREAST LT HISTORY: 44 year old patient presents for a stereotactic biopsy of the following: Site 1: Grouped calcifications located in the left breast in the lower outer quadrant, posterior depth PATIENT CONSENT: A time out was performed immediately prior to procedure start with the radiology team, correctly identifying the patient name, date of , procedure, anatomy (including marking of site and side), patient position, relevant diagnostic and radiology test results, safety precautions, and procedure-specific equipment needs. The procedure, along with the risks (including, but not limited to, infection and bleeding), benefits, and alternatives, was explained to the patient by the performing physician. The patient agreed to undergo the procedure. Medications and allergies were also reviewed. The radiologist, assisting radiologist, and technologist were present throughout the entire procedure. PROCEDURE: Correlation is made to exams dated: 08/17/2024 (mammogram) and 10/24/2024 (mammogram). Site 1: Grouped calcifications located in the left breast in the lower outer quadrant, posterior depth The senior sales assistant radiologist was Charlie Scott DO. The senior sales assistant radiologist administered local anesthesia, performed the tissue sampling and placed the biopsy marker. Audible Time Out: 10:56 Procedure Start: 10:58 Procedure End: 11:04 A stereotactic biopsy was performed for the grouped calcifications located in the left breast in the lower outer quadrant, posterior depth. This was described on the previous mammography report. The skin was prepped in the usual manner. The abnormality was approached from the lateral aspect using a prone table. 15 ml of local anesthetic agent was administered. A petite 9 gauge biopsy needle was placed adjacent to the grouped calcifications under computer guidance and confirmatory stereotactic mammography images were obtained to document needle placement. Once the needle was documented to be in the correct location, 6 samples were obtained using the vacuum-assisted system. A stoplight biopsy marker was then placed under mammogram guidance. A skin closure strip and a sterile dressing were applied to the access site. A second stoplight biopsy clip had to be placed as the initial clip became affixed to and was removed with the introducer. The initial post placement zak image demonstrated appropriate placement within the calcifications on the MLO view only, limiting assessment for placement location. The specimen was sent to the laboratory for pathological analysis. Patient experienced dizziness and a brief vasovagal episode upon getting up from the prone position of the biopsy table. This resolved with a brief rest and water/snack, and there were no further complications. Post-procedure mammogram density: The breasts are extremely dense, which lowers the sensitivity of mammography. IMPRESSION IMPRESSION: STEREOTACTIC GUIDED BIOPSY Site 1: Stereotactic biopsy of grouped calcifications located in the left breast in the lower outer quadrant, posterior depth with placement of a stoplight biopsy marker. The specimen radiograph includes calcifications. Procedure successful with minor complication of brief vasovagal episode, resolving spontaneously after supportive measure as described. Interpreting Radiologist: Mariama Barrera M.D. Electronically signed on: 11/21/2024 Electrical Linesworker: MAGVIW Transcribe Date/Time: Nov 21 2024 10:33A Dictated by : CHARLIE SCOTT DO This examination was interpreted and the report reviewed and electronically signed by: MARIAMA BARRERA MD on Nov 21 2024 1:00PM EST [facility] Radiology Study observation (narrative) [facility] MG stereo Guidance for biops y of Breast - leftOrdered By: Ccf Provider on 11-21-2024 [facility] PT EDon 11-21-2024 PT ED HNO ID: [id number] Author: CHERRY BAUER Tech Service: ? Author Type: Technologist Type: Patient Education Filed: 11/21/2024 10:21 Note Text: AMBULATORY PATIENT EDUCATION RADIOLOGY TOPIC: Pre- Procedure Teaching:Logistics / Protocols / Complication Prevention Post- Procedure Teaching: Symptom Management / Wound Care READINESS TO LEARN COGNITIVE ABILITY: Alert and oriented MOTIVATION TO LEARN: Interested FAMILY SUPPORT: Unable to assess - Family not present INSTRUCTION PROVIDED TO: Patient PATIENT LEARNS BEST BY: Individual Instruction Written Instruction - Hand-outs Verbal Instruction FACTORS AFFECTING LEARNING: None PHYSICAL LIMITATIONS AFFECTING LEARNING: None LEARNING RESPONSE Radiology Procedures Breast BX, Vacuum Assist and Clip Deployment METHOD OF INSTRUCTION: Individual instruction Written instruction - handouts Verbal instruction PATIENT / FAMILY RESPONSE: Performs skill independently: Wound care FOLLOW-UP PLAN: Follow up phone call. SUPPLEMENTAL MATERIAL: Homegoing instructions REFERRAL (RECOMMENDATION): None [facility] SURGICAL PATHOLOGYon 025 CASE REPORT [facility] Comment on above: Order Comment: Speci men Type: TISSUE SPECIMENOrdering Facility: [facility] Address: [address] [place] [address] Result Comment: Surg ica Pathology Report Case: [id number] Authorizing Provider: Mariama Barrera MD Collected: 11/21/2024 11:00 AM Ordering Location: Mammography Received: 11/21/2024 05:18 PM Pathologist: Beau Patrick MD Specimen: Breast, Left, Core Biopsy, lower outer calcs, stereo bx, stoplight clip Performed By: #### S ####[facility] LABCLIA [id number] [place] [address] [place] FINAL DIAGNOSIS [facility] Comment on above: Order Comment: Speci men Type: TISSUE SPECIMENOrdering Facility: [facility] Address: [address] [place] [address] Result Comment: ARanjana Elkins reast, left, lower-outer quadrant, calcifications, Stoplight clip, stereotactic core biopsy: ---Benign breast parenchyma with fibrocystic changes including adenosis, columnar cell change, and apocrine metaplasia. ---Microcalcifications, including calcium oxalate crystals, are present within benign breast. Performed By: #### S ####[facility] LABCLIA [id number] [address] OF [facility] FINAL PERFORMING LAB Normal [facility] Comment on above: Order Comment: Speci brissa Type: TISSUE SPECIMENOrdering Facility: [facility] Address: [address] [place] [address] Result Comment: Diag nostic interpretation performed at: [facility], [address] [place] [address] CLIA# [id number] Range Master: Placido Hagan MD Performed By: #### S ####[facility] LABCLIA [id number] [address] [place]CRIPTION Normal [facility] Comment on above: Order Comment: Enid brumfield Type: TISSUE SPECIMENOrdering Facility: [facility] Address: [address] [place] [address] Result Comment: A. B reast, Left, Core Biopsy Received in formalin labeled as left breast are multiple segments of cylindrical tissue aggregating to 2.3 x 1.5 x 0.3 cm, yellow-white and of a soft consistency. The specimen was removed from the patient at 11:00 on 11/21/2024. On the same day, the specimen was placed in formalin at 11:04. Totally submitted in formalin in one cassette. [facility] November 21, 2024 8:02 PM Gross examination performed at [facility], [address] [place] [address] Performed By: #### S ####[facility] LABASHWINI [id number] [facility] [id number] [facility] Archie 10-25-2024 CNPN Telephone (OBGYWM) ROSALVA DUPONT ([id number]) 1980 F Date Time Provider Department 10/25/24 JULIANNE VALENTIN During your visit today, we recorded the following information about you: Allergies As of Date: 10/25/2024 (No Known Allergies) Date Reviewed: 10/13/2024 Reviewed by: Indy Brown MA - Fully Assessed Reason for Visit: Results [95] Primary Visit Diagnosis:Abnormal mammogram [R92.8] Order(s):CONSULT TO GENERAL SURGERY [9011] Order #: [id number]: 1 FUTURE Prescriptions as of 10/25/2024 - Norethindrone, Contraceptive, 0.35 mg tablet Take 1 tablet by mouth every 24 hours. Problem List As Of Date 10/25/2024 Noted Resolved Migraine [G43.909] 05/28/2011 Family history of malignant neoplasm of breast *06/29/2024 Dense breast [R92.30] 10/25/2024 At high risk for breast cancer [Z91.89] 10/25/2024 Encounter Status:Closed by NAKITA KIDD on 10/25/24 [facility] DBT Breast - left diagnostic for implanton 10-24-2024 IMPRESSION: Calcifications in the left breast are suspicious for malignancy. Stereotactic biopsy is recommended. BI-RADS Category 4: Suspicious RISK: Based on the Tyrer-Cuzick (TC) risk assessment model, this patient has a 21.7% lifetime risk of developing breast cancer, meaning they are at high risk for developing breast cancer. However, this is only an estimate based on available history provided on the patient's questionnaire. Because patients with a lifetime risk of 20% or greater may benefit from additional supplemental screening, we encourage a full breast clinical evaluation and comprehensive breast cancer risk assessment to guide further decision making. For more information regarding the management of high-risk patients, the following is a link to the [facility] care path [email or web address]://ccf.[email or web address] .[employer]/dotNet/documents/ ?huxqa=17401. Additionally, a referral to the [facility] is also appropriate. Interpreting Radiologist: Barbara Moise M.D. Electronically signed on: 10/24/2024 Electrical Linesworker: [place] Transcribe Date/Time: Oct 24 2024 8:36A Dictated by: BARBARA MOISE MD This examination was interpreted and the report reviewed and electronically signed by: BARBARA MOISE MD on Oct 24 2024 9:44AM [facility] DIVISION OF RADIOLOGY * * *Final Report* * * DATE OF EXAM: Oct 24 2024 9:12AM [facility] 0628 - IVA DIAG W ZAK LT / PROCEDURE REASON: Abnormal mammogram * * * * Physician Interpretation * * * * RESULT: [place] [address] #[id number] - IVA DIAG W ZAK LT HISTORY: Patient is 43 years old and is seen for diagnostic evaluation of abnormal mammogram in the left breast. Patient states no personal history of breast cancer. Patient states no personal history of other cancers. COMPARISON STUDIES: The present examination has been compared to prior imaging studies dated 08/17/2024 (mammogram) and 10/24/2024 (ultrasound). MAMMOGRAM TECHNIQUE: The study was acquired using full field digital technology and interpreted from soft copy. Digital Breast Tomosynthesis (DBT) images were obtained and used to assist in the interpretation of this examination. Computer-aided detection was utilized by the radiologist in the interpretation of this examination. MAMMOGRAM FINDINGS: The breast is extremely dense, which lowers the sensitivity of mammography. There are grouped fine pleomorphic calcifications in the lower outer quadrant of the left breast. DIVISION OF RADIOLOGY Provider, [facility] - 10/24/2024 * * *Final Report* * * DATE OF EXAM: Oct 24 2024 9:12AM [facility] 0628 - IVA DIAG W ZAK LT / PROCEDURE REASON: Abnormal mammogram * * * * Physician Interpretation * * * * RESULT: [facility] [address] [place] [address] #[id number] - IVA DIAG W ZAK LT HISTORY: Patient is 43 years old and is seen for diagnostic evaluation of abnormal mammogram in the left breast. Patient states no personal history of breast cancer. Patient states no personal history of other cancers. COMPARISON STUDIES: The present examination has been compared to prior imaging studies dated 08/17/2024 (mammogram) and 10/24/2024 (ultrasound). MAMMOGRAM TECHNIQUE: The study was acquired using full field digital technology and interpreted from soft copy. Digital Breast Tomosynthesis (DBT) images were obtained and used to assist in the interpretation of this examination. Computer-aided detection was utilized by the radiologist in the interpretation of this examination. MAMMOGRAM FINDINGS: The breast is extremely dense, which lowers the sensitivity of mammography. There are grouped fine pleomorphic calcifications in the lower outer quadrant of the left breast. IMPRESSION IMPRESSION: Calcifications in the left breast are suspicious for malignancy. Stereotactic biopsy is recommended. BI-RADS Category 4: Suspicious RISK: Based on the Tyrer-Cuzick (TC) risk assessment model, this patient has a 21.7% lifetime risk of developing breast cancer, meaning they are at high risk for developing breast cancer. However, this is only an estimate based on available history provided on the patient's questionnaire. Because patients with a lifetime risk of 20% or greater may benefit from additional supplemental screening, we encourage a full breast clinical evaluation and comprehensive breast cancer risk assessment to guide further decision making. For more information regarding the management of high-risk patients, the following is a link to the [facility] care path [email or web address]://[email or web address] .com/dotNet/documents/ ?qtcls=32728. Additionally, a referral to the [facility] is also appropriate. Interpreting Radiologist: Barbara Moise M.D. Electronically signed on: 10/24/2024 Electrical Linesworker: [place] Transcribe Date/Time: Oct 24 2024 8:36A Dictated by: BARBARA MOISE MD This examination was interpreted and the report reviewed and electronically signed by: BARBARA MOISE MD on Oct 24 2024 9:44AM EST [facility] Radiology Study observation (narrative) [facility] DBT Breast - left diagnostic for implantOrdered By: Ccf Provider on 10-24-2024 [facility] IVA DIAG W ZAK LTon 024 IVA DIAG W ZAK LT * * *Final Report* * * DATE OF EXAM: Oct 24 2024 9:12AM WRW [id number] - IAV DIAG W ZAK LT / PROCEDURE REASON: Abnormal mammogram * * * * Physician Interpretation * * * * RESULT: [place] [address] #[id number] - IVA DIAG W ZAK LT HISTORY: Patient is 43 years old and is seen for diagnostic evaluation of abnormal mammogram in the left breast. Patient states no personal history of breast cancer. Patient states no personal history of other cancers. COMPARISON STUDIES: The present examination has been compared to prior imaging studies dated 08/17/2024 (mammogram) and 10/24/2024 (ultrasound). MAMMOGRAM TECHNIQUE: The study was acquired using full field digital technology and interpreted from soft copy. Digital Breast Tomosynthesis (DBT) images were obtained and used to assist in the interpretation of this examination. Computer-aided detection was utilized by the radiologist in the interpretation of this examination. MAMMOGRAM FINDINGS: The breast is extremely dense, which lowers the sensitivity of mammography. There are grouped fine pleomorphic calcifications in the lower outer quadrant of the left breast. IMPRESSION: Calcifications in the left breast are suspicious for malignancy. Stereotactic biopsy is recommended. BI-RADS Category 4: Suspicious RISK: Based on the Tyrer-Cuzick (TC) risk assessment model, this patient has a 21.7% lifetime risk of developing breast cancer, meaning they are at high risk for developing breast cancer. However, this is only an estimate based on available history provided on the patient's questionnaire. Because patients with a lifetime risk of 20% or greater may benefit from additional supplemental screening, we encourage a full breast clinical evaluation and comprehensive breast cancer risk assessment to guide further decision making. For more information regarding the management of high-risk patients, the following is a link to the [facility] care path [email or web address] .[email or web address]/dotNet/documents/ ?srmnp=69897. Additionally, a referral to the [facility] is also appropriate. Interpreting Radiologist: Barbara Moise M.D. Electronically signed on: 10/24/2024 Electrical Linesworker: [place] Transcribe Date/Time: Oct 24 2024 8:36A Dictated by: BARBARA MOISE MD This examination was interpreted and the report reviewed and electronically signed by: BARBARA MOISE MD on Oct 24 2024 9:44AM EST [id number] [facility] CNOVon 10-13-2024 CNOV Office Visit (UCWSTR ) ROSALVA DUPONT Jane ([id number]) 1980 F Date Time Provider Department 10/13/24 9:00 AM JOSH ROMERO [facility] During your visit today, we recorded the following information about you: Temperature Pulse Respiration Blood pressure 98.2 degrees 72/minute 18/minute 119/62 Weight 62.7 kg Josh Romero APRN.[facility] 10/13/2024 9:44 AM Signed CC: Patient presents with: Cough: Head and chest congestion x2 weeks HPI: Rosalva Dupont is a 43 year old female who presents to the office with complaint of chest congestion, head congestion, and cough, productive for 2 weeks. Symptoms are worsening Associated symptoms includes cough. Denies nausea, vomiting , and diarrhea. Treatments tried include nothing so far. with no relief of symptoms. Sick contacts: unknown. History of asthma, frequent episodes of bronchitis, chronic bronchitis, bronchiectasis or COPD: No Smoker: No Seasonal/environmental allergies: No The ROS is otherwise negative. The patient's pmh, medications, allergies, and past visits are reviewed. PHYSICAL EXAM: BP 119/62 Pulse 72 Temp 36.8 ?C (98.2 ?F) Resp 18 Wt 62.7 kg (138 lb 3.7 oz) LMP (LMP Unknown) SpO2 98% BMI 21.02 kg/m? General appearance: alert, cooperative, pleasant, in no acute distress Head: Normocephalic Eyes: EOM's intact, conjunctiva pink and moist, no icterus, sclera white, non-injected Ears: Right ear: External ear/canal- Normal, TM - clear with good landmarks. Left ear: External ear/canal- Normal, TM - clear with good landmarks Oropharynx:mild erythema, without exudates present Heart: Negative. RRR without obvious murmur, gallop, or rubs. No ectopy. Lungs: wheezing lower base PAST MEDICAL HISTORY Diagnosis Date Migraine PAST SURGICAL HISTORY Procedure Laterality Date PAST SURGICAL HISTORY OF 2002 benign lump, left breast, Biju Cancer ALLERGIES Patient has no known allergies. MEDICATIONS Norethindrone, Contraceptive, 0.35 mg tablet Take 1 tablet by mouth every 24 hours. FAMILY HISTORY Problem Relation Age of Onset Breast Cancer Mother Early 40s, in remission Prostate Cancer Father Alzheimer's Disease Maternal Grandmother late in life Cancer Paternal Aunt brain tumor Colon Cancer Other none Coronary Artery Disease Other none Diabetes Other none Social History Tobacco Use Smoking status: Never Smokeless tobacco: Never Substance Use Topics Alcohol use: No Drug use: No ASSESSMENT/PLAN: 1. Acute cough - ICD9: 786.2, ICD10: R05.1 (primary diagnosis) - XR CHEST 2V FRONTAL/LAT - neg 2. Rhinosinusitis - ICD9: 473.9, ICD10: J32.9 - DOXYCYCLINE HYCLATE 100 MG TABLET Prescription instructions reviewed with patient as applicable. Potential red flag symptoms discussed with the patient. Reviewed appropriate action plan to take if red flag symptoms occur. Patient agreeable to treatment plan. Josh Romero APRN.[employer] Allergies As of Date: 10/13/2024 (No Known Allergies) Date Reviewed: 10/13/2024 Reviewed by: Indy Brown MA - Fully Assessed Reason for Visit: Cough [28] Cmt: Head and chest congestion x2 weeks Primary Visit Diagnosis:Acute cough [R05.1] Other Visit Diagnosis:Rhinosinusit is [J32.9] Order(s):XR CHEST 2V FRONTAL/LAT [[id number]] Order #: [id number] FUTURE doxycycline (VIBRA-TABS) 100 mg tabletTake 1 tablet by mouth two times a day for 7 days.Disp: 14 tabletRfl: 0 Prescriptions as of 10/13/2024 - doxycycline (VIBRA-TABS) 100 mg tablet Take 1 tablet by mouth two times a day for 7 days. - Norethindrone, Contraceptive, 0.35 mg tablet Take 1 tablet by mouth every 24 hours. Problem List As Of Date 10/13/2024 Noted Resolved Routine gynecological examination [Z01.419] 05/28/2011 Class: Chronic Migraine [G43.909] 05/28/2011 Family history of malignant neoplasm of breast *06/29/2024 Prescriptions ordered this encounter Disp Refills Start End DOXYCYCLINE HYCLATE 100 MG TABLET 14 t* 0 10/13/2024 10/20/2024 Route: ORAL Sig: Take 1 tablet by mouth two times a day for 7 days. Encounter Status:Closed by JOSH ROMERO on 10/13/24 [facility] XR CHEST 2V FRONTAL/LATon XR CHEST 2V FRONTAL/LAT * * *Final Report* * * DATE OF EXAM: Oct 13 2024 9:24AM WOX [id number] - XR CHEST 2V FRONTAL/LAT / PROCEDURE REASON: Acute cough * * * * Physician Interpretation * * * * EXAMINATION: CHEST RADIOGRAPH (2 VIEW FRONTAL and LATERAL) PATIENT/TECHNOLOGIST PROVIDED HISTORY: Pt. states cough and congestion for 2 weeks. CLINICAL HISTORY: 43 years old Female with Acute cough MQ: XC2_6 EXAM DATE/TIME: 10/13/2024 9:24 AM COMPARISON: No relevant prior studies available. RESULT: Lines, tubes, and devices: None. Lungs and pleura: No consolidation, pleural effusion or pneumothorax. Symmetric nodular densities projecting over the mid-lower lungs likely represent nipple shadows. Cardiomediastinal silhouette: Normal cardiomediastinal silhouette. Bones and soft tissues: Unremarkable. IMPRESSION: No acute radiographic abnormality. Electrical Linesworker: ARACELI Transcribe Date/Time: Oct 13 2024 9:25A Dictated by : ANASTASIA MASON DO This examination was interpreted and the report reviewed and electronically signed by: ANASTASIA MASON DO on Oct 13 2024 9:27AM EST [id number] [facility] XR Chest PA and Lateralon IMPRESSION: No acute radiographic abnormality. Electrical Linesworker: ARACELI Transcribe Date/Time: Oct 13 2024 9:25A Dictated by : ANASTASIA MASON DO This examination was interpreted and the report reviewed and electronically signed by: ANASTASIA MASON DO on Oct 13 2024 9:27AM EST DIVISION OF RADIOLOGY * * *Final Report* * * DATE OF EXAM: Oct 13 2024 9:24AM WOX [id number] - XR CHEST 2V FRONTAL/LAT / PROCEDURE REASON: Acute cough * * * * Physician Interpretation * * * * EXAMINATION: CHEST RADIOGRAPH (2 VIEW FRONTAL & LATERAL) PATIENT/TECHNOLOGIST PROVIDED HISTORY: Pt. states cough and congestion for 2 weeks. CLINICAL HISTORY: 43 years old Female with Acute cough MQ: XC2_6 EXAM DATE/TIME: 10/13/2024 9:24 AM COMPARISON: No relevant prior studies available. RESULT: Lines, tubes, and devices: None. Lungs and pleura: No consolidation, pleural effusion or pneumothorax. Symmetric nodular densities projecting over the mid-lower lungs likely represent nipple shadows. Cardiomediastinal silhouette: Normal cardiomediastinal silhouette. Bones and soft tissues: Unremarkable. DIVISION OF RADIOLOGY Provider, [facility] - 10/13/2024 * * *Final Report* * * DATE OF EXAM: Oct 13 2024 9:24AM WOX 5291 - XR CHEST 2V FRONTAL/LAT / PROCEDURE REASON: Acute cough * * * * Physician Interpretation * * * * EXAMINATION: CHEST RADIOGRAPH (2 VIEW FRONTAL & LATERAL) PATIENT/TECHNOLOGIST PROVIDED HISTORY: Pt. states cough and congestion for 2 weeks. CLINICAL HISTORY: 43 years old Female with Acute cough MQ: XC2_6 EXAM DATE/TIME: 10/13/2024 9:24 AM COMPARISON: No relevant prior studies available. RESULT: Lines, tubes, and devices: None. Lungs and pleura: No consolidation, pleural effusion or pneumothorax. Symmetric nodular densities projecting over the mid-lower lungs likely represent nipple shadows. Cardiomediastinal silhouette: Normal cardiomediastinal silhouette. Bones and soft tissues: Unremarkable. IMPRESSION IMPRESSION: No acute radiographic abnormality. Electrical Linesworker: [employer] Transcribe Date/Time: Oct 13 2024 9:25A Dictated by : ANASTASIA MASON DO This examination was interpreted and the report reviewed and electronically signed by: ANASTASIA MASON DO on Oct 13 2024 9:27AM EST [facility] Radiology Study observation (narrative) [facility] XR Chest PA and LateralOrder ed By: Ccf Provider on 10-13-2024 [facility] CNPNon 10-04-2024 CNPN Telephone (OBGYWM) ROSALVA DUPONT ([id number]) 1980 F Date Time Provider Department 10/04/24 JULIANNE VALENTIN OBGYWM During your visit today, we recorded the following information about you: Taylor Mackenzie RN 10/04/2024 3:59 PM Signed Patient needs additional imaging of left breast. Patient is scheduled for October. She is wanting 's opinion. Do you feel patient could push out the diagnostic mammogram to November or should she keep the appointment. АЛЕКСАНДР Herndon Emily, APRN.MAUREEN 10/04/2024 4:01 PM Signed I recommend keeping appt as scheduled. Julianne Valentin APRN.Nakita Manrique RN 10/04/2024 4:05 PM Signed Patient notified and voiced understanding. АЛЕКСАНДР Raines Trisha, RN 10/04/2024 4:30 PM Signed Patient called back and decided to still proceed with scheduling diagnostic imaging until November d/t her insurance deductible. Advised provider recommends keeping, but ultimately that's her decision. Transferred to breast imaging scheduling department. Raven Dick RN Allergies As of Date: 10/04/2024 (No Known Allergies) Date Reviewed: 06/29/2024 Reviewed by: Julianne Valentin APRN.[employer] - Fully Assessed Reason for Visit: Patient Question [2687] Prescriptions as of 10/04/2024 - Norethindrone, Contraceptive, 0.35 mg tablet Take 1 tablet by mouth every 24 hours. Problem List As Of Date 10/04/2024 Noted Resolved Routine gynecological examination [Z01.419] 05/28/2011 Class: Chronic Migraine [G43.909] 05/28/2011 Family history of malignant neoplasm of breast *06/29/2024 Encounter Status:Closed by NAKITA KIDD [facility]04/24 [facility] Tele[facility] (RADMN) ROSALVA DUPONT ([id number]) 1980 F Date Time Provider Department 09/28/24 TEJ NGUYỄN During your visit today, we recorded the following information about you: Allergies As of Date: 09/28/2024 (No Known Allergies) Date Reviewed: 06/29/2024 Reviewed by: Julianne Valentin APRN.[employer] - Fully Assessed Reason for Visit: Mammogram Result Call Back [[id number]] Cmt: left breast diag iva and us cb per Prescriptions as of 09/28/2024 - Norethindrone, Contraceptive, 0.35 mg tablet Take 1 tablet by mouth every 24 hours. Problem List As Of Date 09/28/2024 Noted Resolved Routine gynecological examination [Z01.419] 05/28/2011 Class: Chronic Migraine [G43.909] 05/28/2011 Family history of malignant neoplasm of breast *06/29/2024 Encounter Status:Closed by RADHA DIAZ on 09/28/24 [facility] 08-24-2024 CNPN Telephone (OBGYWM) ROSALVA DUPONT ([id number]) 1980 F Date Time Provider Department 08/24/24 JULIANNE VALENTIN During your visit today, we recorded the following information about you: Raven Dick RN 08/28/2024 12:16 PM Signed Left message for patient to call office or check [employer] message. АЛЕКСАНДР Bah Trisha, RN 08/31/2024 11:38 AM Signed Attempt #2. Left message for patient to call office. She has not viewed mychart message yet. АЛЕКСАНДР Bah Trisha, RN 09/05/2024 9:32 AM Signed 3rd attempt. Letter was sent by mammography too. Raven Dick RN Allergies As of Date: 08/24/2024 (No Known Allergies) Date Reviewed: 06/29/2024 Reviewed by: Julianne Valentin APRN.[employer] - Fully Assessed Reason for Visit: Results [95] Primary Visit Diagnosis:Abnormal mammogram [R92.8] Order(s):IVA DIAGNOSTIC LEFT [[id number]] Order #: [id number] FUTURE BREAST LTD LEFT [[id number]] Order #: [id number] FUTURE Prescriptions as of 09/05/2024 - Norethindrone, Contraceptive, 0.35 mg tablet Take 1 tablet by mouth every 24 hours. Problem List As Of Date 08/24/2024 Noted Resolved Routine gynecological examination [Z01.419] 05/28/2011 Class: Chronic Migraine [G43.909] 05/28/2011 Family history of malignant neoplasm of breast *06/29/2024 Encounter Status:Closed by RAVEN DICK on 09/05/24 [facility] IVA SCREENING W TOMOon 08-17 IVA SCREENING W ZAK * * *Final Report* * * DATE OF EXAM: Aug 17 2024 8:44AM WRW 0582 - IVA SCREENING W ZAK / PROCEDURE REASON: multiple diagnoses * * * * Physician Interpretation * * * * RESULT: [facility] [address] [place] [address] HISTORY: Patient is 43 years old and is seen for screening and is asymptomatic in both breasts. The patient has no personal history of cancer. COMPARISON STUDIES: Comparison is made to exams dating back to: 2019. MAMMOGRAM TECHNIQUE: The study was acquired using full field digital technology and interpreted from soft copy. Digital Breast Tomosynthesis (DBT) images were obtained and used to assist in the interpretation of this examination. Computer-aided detection was utilized by the radiologist in the interpretation of this examination. MAMMOGRAM FINDINGS: The breasts are extremely dense, which lowers the sensitivity of mammography. Finding 1: There are calcifications with grouped distribution seen in the CC view only in the posterior depth of the left breast. Finding 2: There is a post-surgical scar in the left breast. In the right breast, no suspicious masses, calcifications or other abnormalities are seen. IMPRESSION: Finding 1: Calcifications in the left breast require additional evaluation. DIAGNOSTIC mammogram is recommended. BI-RADS Category 0: Incomplete: Needs Additional Imaging Evaluation RISK: Based on the Tyrer-Cuzick (TC) risk assessment model, this patient has a 21.7% lifetime risk of developing breast cancer, meaning they are at high risk for developing breast cancer. However, this is only an estimate based on available history provided on the patient's questionnaire. Because patients with a lifetime risk of 20% or greater may benefit from additional supplemental screening, we encourage a full breast clinical evaluation and comprehensive breast cancer risk assessment to guide further decision making. For more information regarding the management of high-risk patients, the following is a link to the [facility] care path [email or web address] [email or web address]/dotNet/documents/ ?pzxcy=70723. Additionally, a referral to the [facility] is also appropriate. Interpreting Radiologist: Tej Nguyễn M.D. Electronically signed on: 08/23/2024 Electrical Linesworker: [employer] Transcribe Date/Time: Aug 17 2024 8:27A Dictated by: TEJ NGUYỄN MD This examination was interpreted and the report reviewed and electronically signed by: TEJ NGUYỄN MD on Aug 23 2024 11:42PM EST [id number] [facility] CNOVon 06-29-2024 CNOV Office Visit (OBGYWM ) CRESENCIOROSALVA Lara ([id number]) 1980 F Date Time Provider Department 06/29/24 7:45 AM JULIANNE VALENTIN During your visit today, we recorded the following information about you: Blood pressure Weight Height 114/66 61.2 kg 1.727 m Julianne Valentin APRN.[employer] 06/29/2024 9:14 AM Signed Rosalva is a 43 year old No obstetric history on file. who presents for an annual gynecologic exam without complaints. Menses: no menses - progesterone only contraception Contraception: Progestin - only contraceptives and vasectomy HPV vaccine: No Last Pap: normal 2022, see CareEverywhere HPV: negative 2022, see CareEverywhere History of abnormal pap: No Last mammogram: 2021 normal - dense breast Sexually active: Yes History of STDS: None Patient concerns for STD exposure: No. 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 History Comments: Sexual Activity: Yes; Male Contraception: No contraception data on record PAST MEDICAL HISTORY No date: MigrainePAST SURGICAL HISTORY 2003: PAST SURGICAL HISTORY OF Comment: benign lump, left breast, Biju Cancer FAMILY HISTORY Problem Relation Age of Onset None Father Breast Cancer Mother Early 40s, in remission Colon Cancer Other none Coronary Artery Disease Other none Diabetes Other none Alzheimer's Disease Maternal Grandmother late in life Cancer Paternal Aunt brain tumor SOCIAL HISTORY Social History Tobacco Use Smoking status: Never Smokeless tobacco: Never Substance Use Topics Alcohol use: No Drug use: No REVIEW OF SYSTEMS Abdomen: No abdominal pain, nausea, vomiting, diarrhea, or constipation. No bloating, early satiety, indigestion, or increased flatulence. Bladder: No dysuria, gross hematuria, urinary frequency, urinary urgency + stress incontinence Breast: No breast lumps, nipple d/c, overlying skin changes, redness or skin retraction. Allergies and current medication updated:Yes EXAM: BP 114/66 Ht 5' 8 (1.73m) Wt 135 lb (61.2kg) BMI 20.53 kg/(m2). GENERAL: pleasant, female in no apparent distress HEENT: Normocephalic, atraumatic, mucus membranes moist, and no lesions NECK: Supple, full range of motion, no adenopathy, and thyroid normal DERMATOLOGY: Normal, without lesions, non-icteric, and non-hirsute BREAST: soft, non-tender, symmetric, no dominant mass, normal nipple-areolar complex, no lymphadenopathy, and no nipple discharge CHEST: Normal inspiratory effort ABDOMEN: soft, non-tender, and no masses PELVIC: external genitalia normal, normal Bartholin's glands, urethra, Filley's glands, no vulvar lesions, no cervical lesions, + ectropic cervix, good vaginal support, physiologic discharge present, normal appearing perineal body and perianal region BIMANUAL: uterus normal size, shape and consistency, no adnexal masses, and non-tender NEURO: alert and oriented x3,exam grossly non-focal EXTREMITIES: normal ASSESSMENT/PLAN: 1) Health maintenance: Pap/HPV up to date 2022. Mammogram ordered and encouraged. Mother diagnosed in 40s. No BRCA testing done for patient. Discussed this as an option and medical genetics consult - to notify if she'd like to proceed. Mother's cancer was estrogen receptor + Nutrition, exercise and routine health maintenance exams reviewed. HPV vaccine: discussed 2) Contraception: Progestin - only contraceptives. R/B reviewed. 3) STD screening: Declined STD check. 4) Follow up one year or sooner as needed Julianne Valentin APRN.Julianne Mortensen APRN.CNP 06/29/2024 8:15 AM Signed A 3-dose schedule is recommended for people who get the first dose on or after their 15th birthday, and for people with certain immunocompromising conditions. In a 3-dose series, the second dose should be given 1-2 months after the first dose, and the third dose should be given 6 months after the first dose (0, 1-2, 6-month schedule). The minimum intervals are 4 weeks between the first and second dose, 12 weeks between the second and third doses, and 5 months between the first and third doses. If a vaccine dose is administered after a shorter interval, it should be re-administered after another minimum interval has elapsed since the most recent dose. If the vaccination schedule is interrupted, vaccine doses do not need to be repeated (no maximum interval). discus Allergies As of Date: 06/29/2024 (No Known Allergies) Date Reviewed: 06/29/2024 Reviewed by: Julianne Valentin APRN.[employer] - Fully Assessed Reason for Visit: Well Woman [1463] Primary Visit Diagnosis:Family history of malignant neoplasm of breast [Z80.3] Other Visit Diagnoses:Encounter for g (more content not included)... [facility] CBC (INCLUDES DIFF/PLT)on Basophils (Bld) [#/Vol] 0.037 10*3/uL Normal 0-200 [facility] Comment on above: Performed By: #### 6 [phone], [id number], [id number] #### [facility] [facility] [place] [address] Door Person: Raj Ross MD Basophils/100 WBC (Bld) 0.6 % Normal [facility] Comment on above: Performed By: #### 6 399, 7600, 88479 #### [facility] [place] [address] Door Person: Raj Ross MD Eosinophils (Bld) [#/Vol] 0.031 10*3/uL Normal 15-500 [facility] Comment on above: Performed By: #### 6 399, 7600, 87622 #### [facility] [place] [address] Door Person: Raj Ross MD Eosinophils/100 WBC (Bld) 0.5 % Normal [facility] Comment on above: Performed By: #### 6 399, 7600, 53320 #### [facility] of [address], [address] [place] [address] Door Person: Raj Ross MD Erythrocyte distribution width (RBC) [Ratio] 11.9 % Normal 11.0-15.0 [facility] Comment on above: Performed By: #### 6 399, 7600, 16607 #### [facility] of [address], [address] [place] [address] Door Person: Raj Ross MD Hematocrit (Bld) [Volume fraction] 43.9 % Normal 35.0-45.0 [facility] Comment on above: Performed By: #### 6 399, 7600, 90176 #### [facility] of [address], [address] [place] [address] Door Person: Raj Ross MD Hemoglobin (Bld) [Mass/Vol] 14.8 g/dL Normal 11.7-15.5 [facility] Comment on above: Performed By: #### 6 399, 7600, 88268 #### [facility] of [address], [address] [place] [address] Door Person: Raj Ross MD Lymphocytes (Bld) [#/Vol] 0.949 10*3/uL Normal 850-3900 [facility] Comment on above: Performed By: #### 6 399, 7600, 18022 #### [facility] of [address], [address] [place] [address] Door Person: Raj Ross MD Lymphocytes/100 WBC (Bld) 15.3 % Normal [facility] Comment on above: Performed By: #### 6 399, 7600, 93042 #### [facility] of [place] [address] Door Person: Raj Ross MD MCH (RBC) [Entitic mass] 33.3 pg High 27.0-33.0 [facility] Comment on above: Performed By: #### 6 399, 7600, 18315 #### [facility] of [place] [address] Door Person: Raj Ross MD MCHC (RBC) [Mass/Vol] 33.7 g/dL Normal 32.0-36.0 [facility] Comment on above: Performed By: #### 6 399, 7600, 63902 #### [facility] of [place] [address] Door Person: Raj Ross MD MCV (RBC) [Entitic vol] 98.7 fL Normal 80.0-100.0 [facility] Comment on above: Performed By: #### 6 399, 7600, 55657 #### [facility] of [place] [address] Door Person: Raj Ross MD Monocytes (Bld) [#/Vol] 0.471 10*3/uL Normal 200-950 [facility] Comment on above: Performed By: #### 6 399, 7600, 85144 #### [facility] of [place] [address] Door Person: Raj Ross MD Monocytes/100 WBC (Bld) 7.6 % Normal [facility] Comment on above: Performed By: #### 6 399, 7600, 80953 #### [facility] of [place] [address] Door Person: Raj Ross MD Neutrophils (Bld) [#/Vol] 4.712 10*3/uL Normal 6897-7818 [facility] Comment on above: Performed By: #### 6 399, 7600, 74591 #### [facility] of [place] [address] Door Person: Raj Ross MD Neutrophils/100 WBC (Bld) 76 % Normal [facility] Comment on above: Performed By: #### 6 399, 7600, 86150 #### [facility] of [place] [address] Door Person: Raj Ross MD Platelet mean volume (Bld) [Entitic vol] 8.4 fL Normal 7.5-12.5 [facility] Comment on above: Performed By: #### 6 399, 7600, 81272 #### [facility] of [place] [address] Door Person: Raj Ross MD Platelets (Bld) [#/Vol] 363 10*3/uL Normal 140-400 [facility] Comment on above: Performed By: #### 6 399, 7600, 36266 #### [facility] of [address], [address] [place] [address] Door Person: Raj Ross MD RBC (Bld) [#/Vol] 4.45 10*6/uL Normal 3.80-5.10 [facility] Comment on above: Performed By: #### 6 399, 7600, 70930 #### [facility] of [place] [address] Door Person: Raj Ross MD WBC (Bld) [#/Vol] 6.2 10*3/uL Normal 3.8-10.8 [facility] Comment on above: Performed By: #### 6 399, 7600, 34011 #### [facility] of [place] [address] Door Person: Raj Ross MD COMPREHENSIVE METABOLIC PANE [facility] 06-06-2024 Albumin [Mass/Vol] 4.7 g/dL Normal 3.6-5.1 [facility] Comment on above: Performed By: #### 6 399, 7600, 23782 #### [facility] of [place] [address] Door Person: Raj Ross MD Albumin/Globulin [Mass ratio] 1.6 {ratio} Normal 1.0-2.5 [facility] Comment on above: Performed By: #### 6 399, 7600, 58791 #### [facility] of [place] [address] Door Person: Raj Ross MD ALP [Catalytic activity/Vol] 72 U/L Normal 31-125 [facility] Comment on above: Performed By: #### 6 399, 7600, 79323 #### [facility] of [address], [address] [place] [address] Door Person: Raj Ross MD ALT [Catalytic activity/Vol] 19 U/L Normal 6-29 [facility] Comment on above: Performed By: #### 6 399, 7600, 93672 #### [facility] of [address], [address] [place] [address] Door Person: Raj Ross MD AST [Catalytic activity/Vol] 24 U/L Normal 10-30 [facility] Comment on above: Performed By: #### 6 399, 7600, 50326 #### [facility] of [place] [address] Door Person: Raj Ross MD Bilirubin [Mass/Vol] 0.5 mg/dL Normal 0.2-1.2 [facility] Comment on above: Performed By: #### 6 399, 7600, 37353 #### [facility] of [place] [address] Door Person: Raj Ross MD BUN/CREATININE RATIO SEE NOTE: Normal 6-22 [facility] Comment on above: Result Comment: Not Reported: BUN and Creatinine are within reference range. Performed By: #### 6 399, 7600, 85394 #### [facility] of [address], [address] [place] [address] Door Person: Raj Ross MD Calcium [Mass/Vol] 9.5 mg/dL Normal 8.6-10.2 [facility] Comment on above: Performed By: #### 6 399, 7600, 79118 #### [facility] of [place] [address] Door Person: Raj Ross MD Chloride [Moles/Vol] 103 mmol/L Normal 98-110 [facility] Comment on above: Performed By: #### 6 399, 7600, 35471 #### [facility] of [address] [place] [address] Door Person: Raj Ross MD CO2 [Moles/Vol] 27 mmol/L Normal 20-32 [facility] Comment on above: Performed By: #### 6 399, 7600, 38365 #### [facility] of [address], [address] [place] [address] Door Person: Raj Ross MD Creatinine [Mass/Vol] 0.90 mg/dL Normal 0.50-0.99 [facility] Comment on above: Performed By: #### 6 399, 7600, 76021 #### [facility] of [place] [address] Door Person: Raj Ross MD GFR/1.73 sq M.predicted among non-blacks MDRD (S/P/Bld) [Vol rate/Area] 81 mL/min/{1.73_m2} Normal > OR = 60 [facility] Comment on above: Performed By: #### 6 399, 7600, 58263 #### [facility] of [address], [address] [place] [address] Door Person: Raj Ross MD Globulin (S) [Mass/Vol] 2.9 g/dL Normal 1.9-3.7 [facility] Comment on above: Performed By: #### 6 399, 7600, 09800 #### [facility] of [place] [address] Door Person: Raj Ross MD Glucose [Mass/Vol] 91 mg/dL Normal 65-99 [facility] Comment on above: Result Comment: Fasting reference interval Performed By: #### 6 399, 7600, 95007 #### [facility] of [place] [address] Door Person: Raj Ross MD Potassium [Moles/Vol] 4.7 mmol/L Normal 3.5-5.3 [facility] Comment on above: Performed By: #### 6 399, 7600, 33031 #### [facility] of [address] [place] [address] Door Person: Raj Ross MD Protein [Mass/Vol] 7.6 g/dL Normal 6.1-8.1 [facility] Comment on above: Performed By: #### 6 399, 7600, 08498 #### [facility] [place] [address] Door Person: Raj Ross MD Sodium [Moles/Vol] 136 mmol/L Normal 135-146 [facility] Comment on above: Performed By: #### 6 399, 7600, 79316 #### [facility] of [place] [address] Door Person: Raj Ross MD Urea nitrogen [Mass/Vol] 19 mg/dL Normal 7-25 [facility] Comment on above: Performed By: #### 6 399, 7600, 55945 #### [facility] of [place] [address] Door Person: Raj Ross MD LIPID PANEL, [facility] 07-2 Cholesterol [Mass/Vol] 172 mg/dL Normal <200 [facility] Comment on above: Performed By: #### 6 399, 7600, 21229 #### [facility] [place] [address] Door Person: Raj Ross MD Cholesterol in HDL [Mass/Vol] 66 mg/dL Normal > OR = 50 [facility] Comment on above: Performed By: #### 6 399, 7600, 68763 #### [facility] [place] [address] Door Person: Raj Ross MD Cholesterol in LDL [Mass/Vol] 94 mg/dL Normal [facility] Comment on above: Result Comment: Refe rence range: <100 Desirable range <100 mg/dL for primary prevention; <70 mg/dL for patients with CHD or diabetic patients with > or = 2 CHD risk factors. LDL-C is now calculated using the Nik-Yanez calculation, which is a validated novel method providing better accuracy than the Friedewald equation in the estimation of LDL-C. Nik SUNSHINE et al. WILEY. 2013;310(19): 4462-2931 (http://education.SciQuest.[employer] Hero/faq/ISJ294) Performed By: #### 6 399, 7600, 04591 #### [facility] [address], [address] [place] [address] Door Person: Raj Ross MD Cholesterol.total/Ch olesterol in HDL [Mass ratio] 2.6 {ratio} Normal <5.0 [facility] Comment on above: Performed By: #### 6 399, 7600, 65176 #### [facility] [address], [address] [place] [address] Door Person: Raj Ross MD NON HDL CHOLESTEROL 106 mg/dL (calc) Normal <130 [facility] Comment on above: Result Comment: For patients with diabetes plus 1 major ASCVD risk factor, treating to a non-HDL-C goal of <100 mg/dL (LDL-C of <70 mg/dL) is considered a therapeutic option. Performed By: #### 6 399, 7600, 32511 #### [facility] [place] [address] Door Person: Raj Ross MD Triglyceride [Mass/Vol] 41 mg/dL Normal <150 [facility] Comment on above: Performed By: #### 6 399, 7600, 95041 #### [facility] [place] [address] Door Person: Raj Ross MD Laboratory - Chemistry and C hemistry - challengeon 06-05-2024 Albumin [Mass/Vol] 4.7 g/dL Normal 3.6 - 5.1 g/dL [facility], [facility].; [facility], [facility]. Albumin/Globulin [Mass ratio] 1.6 {ratio} Normal 1.0 - 2.5 [facility], [facility].; [facility], [facility]. ALP [Catalytic activity/Vol] 72 U/L Normal 31 - 125 U/L [facility], [facility].; [facility], [facility]. ALT [Catalytic activity/Vol] 19 U/L Normal 6 - 29 U/L [facility], [facility].; [facility], [facility]. AST [Catalytic activity/Vol] 24 U/L Normal 10 - 30 U/L [facility].; [facility], [facility]. Bilirubin [Mass/Vol] 0.5 mg/dL Normal 0.2 - 1 .2 mg/dL [facility], [facility].; [facility], [facility]. Calcium [Mass/Vol] 9.5 mg/dL Normal 8.6 - 10. 2 mg/dL [facility].; [facility], [facility]. Chloride [Moles/Vol] 103 mmol/L Normal 98 - 11 0 mmol/L [facility].; [facility], [facility]. Cholesterol [Mass/Vol] 172 mg/dL Normal [facility], [facility].; [facility], [facility]. Cholesterol in HDL [Mass/Vol] 66 mg/dL Normal [facility].; [facility], [facility]. Cholesterol in LDL [Mass/Vol] 94 mg/dL Normal [facility].; [facility], [facility]. CO2 [Moles/Vol] 27 mmol/L Normal 20 - 32 mmol/L [facility].; [facility], [facility]. Creatinine [Mass/Vol] 0.90 mg/dL Normal 0.50 - 0.99 mg/dL [facility], [facility].; [facility], [facility]. GFR/1.73 sq M.predicted among non-blacks MDRD (S/P/Bld) [Vol rate/Area] 81 mL/min/{1.73_m2} Normal [facility], [facility].; [facility], [facility]. Glucose [Mass/Vol] 91 mg/dL Normal 65 - 99 mg/dL [facility].; [facility], [facility]. Potassium [Moles/Vol] 4.7 mmol/L Normal 3.5 - 5.3 mmol/L [facility], [facility].; [facility], [facility]. Protein [Mass/Vol] 7.6 g/dL Normal 6.1 - 8.1 g/dL [facility], [facility].; [facility], [facility]. Sodium [Moles/Vol] 136 mmol/L Normal 135 - 146 mmol/L [facility].; [facility] Triglyceride [Mass/Vol] 41 mg/dL Normal [facility].; [place] [employer] [facility], [facility] Urea nitrogen [Mass/Vol] 19 mg/dL Normal 7 - 25 mg/dL [facility], [facility].; [place] [employer], [facility] Laboratory - Hematology and Cell countson 06-05-2024 Basophils (Bld) [#/Vol] 0.037 10*3/uL Normal 0 - 200 {cells/uL} [facility].; [facility], [facility] Basophils/100 WBC (Bld) 0.6 % Normal [facility].; [facility], [facility] Eosinophils (Bld) [#/Vol] 0.031 10*3/uL Normal 15 - 500 {cells/uL} [facility], [facility].; [place] [employer], [facility] Eosinophils/100 WBC (Bld) 0.5 % Normal [facility].; [place] [employer] [facility], [facility] Erythrocyte distribution width (RBC) [Ratio] 11.9 % Normal 11.0 - 15.0 % [facility].; [place] [employer] [facility], [facility]. Hematocrit (Bld) [Volume fraction] 43.9 % Normal 35.0 - 45.0 % [facility].; [place] [employer] [facility], [facility]. Hemoglobin (Bld) [Mass/Vol] 14.8 g/dL Normal 11.7 - 15.5 g/dL [facility].; [facility], [facility]. Lymphocytes (Bld) [#/Vol] 0.949 10*3/uL Normal 850 - 3900 {cells/uL} [facility].; [place] [employer] [facility], [facility]. Lymphocytes/100 WBC (Bld) 15.3 % Normal [facility].; [place] [employer], [facility]. MCH (RBC) [Entitic mass] 33.3 pg Abnormal 27.0 - 33.0 pg [facility].; [place] [employer], [facility]. MCHC (RBC) [Mass/Vol] 33.7 g/dL Normal 32.0 - 36.0 g/dL [facility].; [facility], [employer]. MCV (RBC) [Entitic vol] 98.7 fL Normal 80.0 - 100.0 fL [facility].; [place] [employer], [facility]. Monocytes (Bld) [#/Vol] 0.471 10*3/uL Normal 200 - 950 {cells/uL} [facility], [facility].; [place] [employer], [employer]. Monocytes/100 WBC (Bld) 7.6 % Normal [facility].; [place] [employer], [employer]. Neutrophils (Bld) [#/Vol] 4.712 10*3/uL Normal 1500 - 7800 {cells/uL} [facility].; [place] [employer], [employer]. Neutrophils/100 WBC (Bld) 76 % Normal [facility].; [place] [employer], [employer]. Platelet mean volume (Bld) [Entitic vol] 8.4 fL Normal 7.5 - 12.5 fL [facility].; [place] [employer], [employer]. Platelets (Bld) [#/Vol] 363 10*3/uL Normal 140 - 400 [place] [employer] [facility].; [place] [employer], [employer]. RBC (Bld) [#/Vol] 4.45 10*6/uL Normal 3.80 - 5.1 0 {Million/uL} [facility].; [place] [employer], [employer]. WBC (Bld) [#/Vol] 6.2 10*3/uL Normal 3.8 - 10.8 [place] [employer] [facility].; [employer]. No Panel Informationon 06-05 BUN/CREATININE RATIO SEE NOTE: Normal [facility] [employer] [facility].; [employer] CHOL/HDLC RATIO 2.6 Normal [facility].; [place] [employer], [employer]. GLOBULIN 2.9 Normal 1.9 - 3.7 [place] [employer] [facility].; [place] [employer], [employer]. NON HDL CHOLESTEROL 106 Normal [facility].; [employer]. Laboratory - Microbiology an d Antimicrobial susceptibilityon 12-07-2023 S. pyogenes Ag EIA Ql (Throat) Negative Normal [place] [employer] [facility].; [facility]. PAP IG HPV APTIMA 16/18,45on 07-31-2023 ADEQ Comment Normal . [facility] Comment on above: Order Comment: Speci men Comment: [id number] Specimen Comment: Source.............Cervix;Endocervix Specimen Comment: LMP / Prev Treat...[id number] Specimen Comment: No. of containers..01 ThinPrep Vial Result Comment: Sati sfactory for evaluation. Endocervical and/or squamous metaplastic cells (endocervical component) are present. Performed By: #### L 7400.0280 #### [facility] [address] [place], [address] COMM . Normal . [facility] Comment on above: Order Comment: Speci men Comment: [id number] Specimen Comment: Source.............Cervix;Endocervix Specimen Comment: LMP / Prev Treat...[id number] Specimen Comment: No. of containers..01 ThinPrep Vial Performed By: #### L 7400.0280 #### [facility] [address] [place], [address] COMMENT Comment Normal . [facility] Comment on above: Order Comment: Speci men Comment: [id number] Specimen Comment: Source.............Cervix;Endocervix Specimen Comment: LMP / Prev Treat...[id number] Specimen Comment: No. of containers..01 ThinPrep Vial Result Comment: This liquid based ThinPrep(R) pap test was screened with the use of an image guided system. Performed By: #### L 7400.0280 #### [facility] [address] [place], [address] DIAG Comment Normal . [facility] Comment on above: Order Comment: Speci men Comment: [id number] Specimen Comment: Source.............Cervix;Endocervix Specimen Comment: LMP / Prev Treat...[id number] Specimen Comment: No. of containers..01 ThinPrep Vial Result Comment: NEGA TIVE FOR INTRAEPITHELIAL LESION OR MALIGNANCY. Performed By: #### L 7400.0280 #### [facility] [address] [place], [place], [id number] HPV APTIMA, HR Negative Normal Negative [facility] Comment on above: Order Comment: Speci men Comment: [id number] Specimen Comment: Source.............Cervix;Endocervix Specimen Comment: LMP / Prev Treat...[id number] Specimen Comment: No. of containers..01 ThinPrep Vial Result Comment: This nucleic acid amplification test detects fourteen high- risk HPV types (16,18,31,33,35,39,45,51,52,56,58,59,66,68) without differentiation. Performed By: #### L 7400.0280 #### [facility] [address] [place], [address] HPV Lesley Rfx Comment Normal . [facility] Comment on above: Order Comment: Speci men Comment: [id number] Specimen Comment: Source.............Cervix;Endocervix Specimen Comment: LMP / Prev Treat...[id number] Specimen Comment: No. of containers..01 ThinPrep Vial Result Comment: Crit eria not met, HPV Genotype not performed. Performed at: - [address] [id number] Bond Analyst: Chantale Donahue MD, Phone: [phone] Performed at: = - [address] [id number] Bond Analyst: Chantale Donahue MD, Phone: [phone] Performed By: #### L 7400.0280 #### [facility] [address] [place], [place], [id number] PAPSMR Comment Normal . [facility] Comment on above: Order Comment: Speci men Comment: [id number] Specimen Comment: Source.............Cervix;Endocervix Specimen Comment: LMP / Prev Treat...[id number] Specimen Comment: No. of containers..01 ThinPrep Vial Result Comment: The Pap smear is a screening test designed to aid in the detection of premalignant and malignant conditions of the uterine cervix. It is not a diagnostic procedure and should not be used as the sole means of detecting cervical cancer. Both false-positive and false-negative reports do occur. Performed By: #### L 7400.0280 #### [facility] [address] [place], [place], [id number] PERFORM Comment Normal . [facility] Comment on above: Order Comment: Speci men Comment: [id number] Specimen Comment: Source.............Cervix;Endocervix Specimen Comment: LMP / Prev Treat...[id number] Specimen Comment: No. of containers..01 ThinPrep Vial Result Comment: Syd [employer] (ASCP) Performed By: #### L 7400.0280 #### [facility] [address] [facility] [address] [place], [place], [id number] Laboratory - Chemistry and C hemistry - challengeon 04-22-2023 Albumin [Mass/Vol] 4.4 g/dL Normal 3.6 - 5.1 g/dL [facility], [facility].; [facility], [facility]. Albumin/Globulin [Mass ratio] 1.7 {ratio} Normal 1.0 - 2.5 [facility], [facility].; [facility], [facility]. ALP [Catalytic activity/Vol] 72 U/L Normal 31 - 125 U/L [facility], [facility].; [facility], [facility]. ALT [Catalytic activity/Vol] 14 U/L Normal 6 - 29 U/L [facility], [facility].; [facility], [facility]. AST [Catalytic activity/Vol] 24 U/L Normal 10 - 30 U/L [facility], [facility].; [facility], [facility]. Bilirubin [Mass/Vol] 0.6 mg/dL Normal 0.2 - 1 .2 mg/dL [facility], [facility].; [facility], [facility]. Calcium [Mass/Vol] 9.2 mg/dL Normal 8.6 - 10. 2 mg/dL [facility], [facility].; [facility], [facility]. Chloride [Moles/Vol] 104 mmol/L Normal 98 - 11 0 mmol/L [facility], [facility].; [facility] Cholesterol [Mass/Vol] 153 mg/dL Normal [facility], [facility].; [facility], [facility]. Cholesterol in HDL [Mass/Vol] 60 mg/dL Normal [facility], [facility].; [facility], [facility]. Cholesterol in LDL [Mass/Vol] 82 mg/dL Normal [facility], [facility].; [facility], [facility]. CO2 [Moles/Vol] 26 mmol/L Normal 20 - 32 mmol/L [facility], [facility].; [facility] [facility], [facility]. Creatinine [Mass/Vol] 0.85 mg/dL Normal 0.50 - 0.99 mg/dL [facility], [facility].; [facility], [facility]. GFR/1.73 sq M.predicted among non-blacks MDRD (S/P/Bld) [Vol rate/Area] 87 mL/min/{1.73_m2} Normal [facility], [facility].; [facility] Glucose [Mass/Vol] 89 mg/dL Normal 65 - 99 mg/dL [facility].; [facility] Potassium [Moles/Vol] 4.7 mmol/L Normal 3.5 - 5.3 mmol/L [facility], [facility].; [facility] Protein [Mass/Vol] 7.0 g/dL Normal 6.1 - 8.1 g/dL [facility], [facility].; [place] [employer] [facility] Sodium [Moles/Vol] 136 mmol/L Normal 135 - 146 mmol/L [facility], [facility].; [place] [employer] [facility] Triglyceride [Mass/Vol] 38 mg/dL Normal [facility], [facility].; [facility] Urea nitrogen [Mass/Vol] 13 mg/dL Normal 7 - 25 mg/dL [facility].; [facility] No Panel Informationon 04-22 BUN/CREATININE RATIO NOT APPLICABLE Normal 6 - 22 [facility]; [facility] [facility], [employer]. CHOL/HDLC RATIO 2.6 Normal [facility]; [place] [employer] [facility], [facility]. GLOBULIN 2.6 Normal 1.9 - 3.7 [facility]; [place] [employer] [facility] NON HDL CHOLESTEROL 93 Normal [facility]; [facility] Breast Bilateral W/O and Won 12-02-2022 Breast Bilateral W/O and W [facility] Imaging Services [address] [place] [address] Breast Bilateral W/O and W MR#: [id number] Acct: [id number] Name: ROSALVA DUPONT DONIS Rep #: [id number] : 1980 F 42 From: Mateusz Santo MD PCP: GLADIS Ibrahim Status: REG CLI Study: Breast Bilateral W/O and W Date of Exam: 12/02 Exam# [id number] Ordering Dr: Kristi Muñoz DO STUDY: BILATERAL BREAST MR WITHOUT AND WITH CONTRAST REASON FOR EXAM: Female, 42 years old. Family history of breast cancer. TECHNIQUE: Multi-sequence multi-echo imaging of both breasts was performed with a dedicated breast coil. T1-weighted and T2-weighted images were performed before the administration of contrast. T1-weighted images were also performed after the intravenous administration of 12 ml of Clariscan. COMPARISON: Screening mammogram dated May 13, 2022 and prior breast MRI with contrast dated June 24, 2020. FINDINGS: RIGHT BREAST: The breast is extremely dense. There are no abnormal enhancing masses or areas of non-mass enhancement in the right breast. LEFT BREAST: The breast is extremely dense. There are no abnormal enhancing masses or areas of non-mass enhancement in the left breast. There are no enlarged or abnormal lymph nodes. There is no abnormality in the visualized regions of the chest or liver. MRI/Breast Bilateral W/O and W IMPRESSION: No abnormality on the breast MRI with contrast. Alternating annual screening mammography with breast MRI with contrast, given the patient''s family history and the extremely dense background breast tissue is recommended. CATEGORY: BIRADS Category 2: Benign. A letter regarding these results will be sent to the patient by the facility within 30 days. Electronically Signed: Mateusz Santo, at 10:03 EST , CC: GLADIS Mitchell; Dr. Kristi Muñoz, DO Electrical Linesworker: Signed Normal [facility] URINEon 01-10-2020 Beta HCG ( test) Ql (U) Negative Normal NEGATIVE [facility] Comment on above: Performed By: #### 2 [id number] #### [facility],[address] [place] [address] EXTERNAL QC DONE? YES Normal [facility] Comment on above: Performed By: #### 2 [id number] #### [facility],[address] [place] [address] INTERNAL QC PASS Normal [facility] Comment on above: Performed By: #### 2 [id number] #### [facility],[address] [place], [place] [address] URINEon 11-16-2019 Beta HCG ( test) Ql (U) Negative Normal NEGATIVE [facility] Comment on above: Performed By: #### 2 87588 #### [facility],[address] [place] [address] EXTERNAL QC DONE? YES Normal [facility] Comment on above: Performed By: #### 2 18726 #### [facility],[address] [place] [address] 54089 INTERNAL QC PASS Normal [facility] Comment on above: Performed By: #### 2 80561 #### [facility],[address] [place] [address] 54807 LDL-CHOLESTEROL, DIRECT [CCL ]on 10-03-2019 LDL-Chol, Direct 137 mg/dL High <100 [facility] Comment on above: Result Comment: <100 mg/dL, Optimal 100-129 mg/dL, Near optimal/above optimal 130-159 mg/dL, Borderline high 160-189 mg/dL, High >189 mg/dL, Very high Secondary prevention optimal LDL Cholesterol levels are recommended to be < 70 mg/dL Performed By: #### 2 21235 #### [facility],[address] [place] [address] 90652 VLDL Cholesterol Test Not Indicated Normal <30 [facility] Comment on above: Result Comment: [facility] [address] [place] [address] Lesa Curtis M.D. [id number] Performed By: #### 2 92981 #### [facility],[address] [place] [address] 12981 LDL-Chol, Directon 9 LDL-Chol, Direct 137 mg/dL High <100 [facility] Comment on above: Performed By: #### L DLDCT #### [facility] Routine Lab [address] [place] [id number] VLDL Cholesterol NOTI Normal <30 [facility] Comment on above: Performed By: #### L DLDCT #### [facility] Routine Lab [address] [place], [place] [address] LIPID PROFILEon 10-02-2019 Cholesterol [Mass/Vol] 207 mg/dL High 0 - 200 [facility] Comment on above: Performed By: #### 2 92994 #### [facility],[address] [place] [address] 34996 Cholesterol in HDL [Mass/Vol] 51 mg/dL Normal 40 - 60 [facility] Comment on above: Performed By: #### 2 03617 #### [facility],[address] [place] [address] 40424 Cholesterol in LDL [Mass/Vol] 135 mg/dL High 0 - 129 [facility] Comment on above: Performed By: #### 2 94861 #### [facility],[address] [place] [address] 11040 Cholesterol.total/Ch olesterol in HDL [Mass ratio] 4.1 {ratio} Normal 0.0 - 5.0 [facility] Comment on above: Performed By: #### 2 21517 #### [facility],[address] [place] [address] 04437 Lipid 1996 panel Normal [facility] Comment on above: Result Comment: LIPI D PROFILE Performed By: #### 2 68069 #### [facility],[address] [place] [address] 49003 Triglyceride [Mass/Vol] 107 mg/dL Normal 0 - 150 [facility] Comment on above: Performed By: #### 2 02126 #### [facility],[address] [place] [address] 79627 PREG SERUM QUANTon 11-18-201 9 HCG QUANTITATIVE <0.5 Normal [facility] Comment on above: Result Comment: Refe rence Range: Male: <5 Female: Non: <5 1 - 7 days : 5 - 50 1 - 2 weeks: 50 - 500 2 - 3 weeks: 100 - 5000 3 - 4 weeks: 500 - 10,000 4 - 5 weeks: 1000 - 50,000 5 - 6 weeks: 10,000 - 100,000 6 - 8 weeks: 15,000 - 200,000 2 - 3 months: 10,000 - 100,000 2ND TRIMESTER 3000-50,000 3RD TRIMESTER 1000-50,000 Performed By: #### 2 06217 #### [facility],[address] [place] [address] 93977 SGOT (AST)on 10-02-2019 AST/SGOT 22 U/L Normal 13 - 39 [facility] Comment on above: Performed By: #### 2 74302 #### [facility],[address] [place] [address] 74028 SGPT (ALT)on 10-02-2019 ALT [Catalytic activity/Vol] 15 U/L Normal 8 - 35 [facility] Comment on above: Performed By: #### 2 66972 #### [facility],[address] [place] [address] URINEon 08-22-2019 Beta HCG ( test) Ql (U) Negative Normal NEGATIVE [facility] Comment on above: Performed By: #### 2 16142 #### [facility],[address] [place] [address] EXTERNAL QC DONE? YES Normal [facility] Comment on above: Performed By: #### 2 86170 #### [facility],[address] [place] [address] INTERNAL QC PASS Normal [facility] Comment on above: Performed By: #### 2 65021 #### [facility],[address] [place] [address] 04086 URINEon 07-18-2019 Beta HCG ( test) Ql (U) Negative Normal NEGATIVE [facility] Comment on above: Performed By: #### 2 62902 #### [facility],[address] [place] [address] 98895 EXTERNAL QC DONE? YES Normal [facility] Comment on above: Performed By: #### 2 92138 #### [facility],[address] [place] [address] 01767 INTERNAL QC PASS Normal [facility] Comment on above: Performed By: #### 2 06910 #### [facility],[address] [place] [address] 14337 LIPID PROFILEon 06-14-2019 Cholesterol [Mass/Vol] 175 mg/dL Normal 0 - 200 [facility] Comment on above: Performed By: #### 2 46633 #### [facility],[address] [place] [address] 82334 Cholesterol in HDL [Mass/Vol] 50 mg/dL Normal 40 - 60 [facility] Comment on above: Performed By: #### 2 19070 #### [facility],[address] [place] [address] 38270 Cholesterol in LDL [Mass/Vol] 112 mg/dL Normal 0 - 129 [facility] Comment on above: Performed By: #### 2 81134 #### [facility],[address] [place] [address] 99074 Cholesterol.total/Ch olesterol in HDL [Mass ratio] 3.5 {ratio} Normal 0.0 - 5.0 [facility] Comment on above: Performed By: #### 2 92059 #### [facility],[address] [place] [address] 38329 Lipid 1996 panel Normal [facility] Comment on above: Result Comment: LIPI D PROFILE Performed By: #### 2 89513 #### [facility],[address] [place] [address] 08575 Triglyceride [Mass/Vol] 63 mg/dL Normal 0 - 150 [facility] Comment on above: Performed By: #### 2 75449 #### [facility],[address] [place] [address] 29724 SERUM QUALon 06-14 EXTERNAL QC DONE? YES Normal [facility] Comment on above: Performed By: #### 2 55684 #### [facility],[address] [place] [address] 00361 INTERNAL QC PASS Normal [facility] Comment on above: Performed By: #### 2 82490 #### [facility],[address] [place] [address] 23024 SER Negative Normal NEGATIVE [facility] Comment on above: Performed By: #### 2 03653 #### [facility],[address] [place] [address] 93661 SGOT (AST)on 06-14-2019 AST/SGOT 19 U/L Normal 13 - 39 [facility] Comment on above: Performed By: #### 2 00647 #### [facility],[address] [place] [address] 57483 SGPT (ALT)on 06-14-2019 ALT [Catalytic activity/Vol] 12 U/L Normal 8 - 35 [facility] Comment on above: Performed By: #### 2 02486 #### [facility],[address] [place] [address] 14114 SURGICAL PATHOLOGY, MARLENY Noble 11-04-2012 [facility] Vital Signs Date Time Vital Sign Value Performing Clinician Facility 12-21-2024 11:54-0500 Body mass index (BMI) [Ratio] 20.82 kg/m2 Cherry Carisa [employer]INE CAR ME[employer]IC[employer] Work Phone: [facility] 12-21-2024 11:54-0500 Body temperature 98.49 [degF] Cherry Miller [employer] Work Phone: [facility] 12-21-2024 11:54-0500 Body weight 62.1 kg Cherry Miller [employer]INE [employer] Work Phone: [facility] 12-21-2024 11:54-0500 Diastolic blood pressure 66 mm[Hg] Cherry Miller [employer]INE [employer] MECH[employer]IC[employer] Work Phone: [facility] 12-21-2024 11:54-0500 Heart rate 82 /min Cherry Miller [employer]INE [employer] MECH[employer]IC[employer] Work Phone: [facility] 12-21-2024 11:54-0500 Respiratory rate 12 /min Cherry Miller MINE CAR MECH[employer]IC[employer] Work Phone: [facility] 12-21-2024 11:54-0500 SaO2% (BldA) [Mass fraction] 96 % Cherry Miller [employer]INE [employer] ME[employer] Work Phone: [facility] 12-21-2024 11:54-0500 Systolic blood pressure 102 mm[Hg] Cherry Miller APRN.[employer] Work Phone: [facility] 10-13-2024 08:43-0500 Body mass index (BMI) [Ratio] 21.02 kg/m2 Josh Romero APRN.[employer] Work Phone: [facility] 10-13-2024 08:43-0500 Body temperature 98.2 [degF] Josh Romero APRN.[employer] Work Phone: [facility] 10-13-2024 08:43-0500 Body weight 62.7 kg Josh Romero APRN.[employer] Work Phone: [facility] 10-13-2024 08:43-0500 Diastolic blood pressure 62 mm[Hg] Josh Romero APRN.[employer] Work Phone: [facility] 10-13-2024 08:43-0500 Heart rate 72 /min Josh Romero APRN.[employer] Work Phone: [facility] 10-13-2024 08:43-0500 Respiratory rate 18 /min Josh Romero APRN.[employer] Work Phone: [facility] 10-13-2024 08:43-0500 SaO2% (BldA) [Mass fraction] 98 % Josh Romero APRN.[employer] Work Phone: [facility] 10-13-2024 08:43-0500 Systolic blood pressure 119 mm[Hg] Josh Romero APRN.[employer] Work Phone: [facility] 06-29-2024 07:40-0400 Body height 172.7 cm Julianne Valentin APRN.[employer] Work Phone: [facility] 06-29-2024 07:40-0400 Body mass index (BMI) [Ratio] 20.53 kg/m2 Julianne Valentin APRN.[employer] Work Phone: [facility] 06-29-2024 07:40-0400 Body weight 61.24 kg Julianne Valentin MINE CAR MECH[employer]IC[employer] Work Phone: [facility] 06-29-2024 07:40-0400 Diastolic blood pressure 66 mm[Hg] Julianne Valentin MINE [employer] MECH[employer]IC[employer] Work Phone: [facility] 06-29-2024 07:40-0400 Systolic blood pressure 114 mm[Hg] Julianne Valentin MINE [employer] MECH[employer] Work Phone: [facility] 06-05-2024 08:43-0400 Body height 170.18 cm Saskia Bailey RN [facility], [facility].; [facility]. 06-05-2024 08:43-0400 Body mass index (BMI) [Ratio] 21.3 kg/m2 Saskia Bailey RN [facility], [facility].; [facility], [facility]. 06-05-2024 08:43-0400 Body surface area Derived from formula 1.72 m2 Saskia Bailey RN [facility].; [facility], [facility]. 06-05-2024 08:43-0400 Body weight 61.69 kg Saskia Bailey RN [facility].; [facility], [facility]. 06-05-2024 08:43-0400 Diastolic blood pressure 68 mm[Hg] Saskia Bailey RN [facility].; [employer] [facility], [employer]. Comment on above: Patient Position: Sitting; Cuff Location : Right Arm; Cuff Size: Standard 06-05-2024 08:43-0400 Heart rate 74 /min Saskia Bailey RN [facility].; [email or web address] Comment on above: Pattern: Regular 06-05-2024 08:43-0400 Systolic blood pressure 102 mm[Hg] Saskia Bailey RN [facility].; [employer], [employer]. Comment on above: Patient Position: Sitting; Cuff Location : Right Arm; Cuff Size: Standard 12-07-2023 11:22-0500 Body temperature 97.8 [degF] Bill Mcwilliams LPN [facility], [facility]. 12-07-2023 11:22-0500 Body weight 63.5 kg Bill Mcwilliams LPN [facility], [facility].; [place] [employer] [facility], [employer]. 12-07-2023 11:22-0500 Diastolic blood pressure 55 mm[Hg] Bill Mcwilliams LPN [facility] [employer] [facility] Comment on above: Patient Position: Sitting; Cuff Location : Left Arm; Cuff Size: Standard 12-07-2023 11:22-0500 Heart rate 72 /min Bill Mcwilliams LPN [facility], [facility].; [employer] [facility] Comment on above: Pattern: Regular 12-07-2023 11:22-0500 Inhaled oxygen concentration 20 % Bill Mcwilliams SUBSTATION OPERATOR APPRENTICE [facility], [facility].; [employer] [facility] Comment on above: Room air 12-07-2023 11:22-0500 Inhaled oxygen concentration 21 % Bill Mcwilliams SUBSTATION OPERATOR APPRENTICE [facility], [facility].; [employer] [facility], [employer]. Comment on above: Room air 12-07-2023 11:22-0500 SaO2% (BldA) [Mass fraction] 98 % Bill Mcwilliams SUBSTATION OPERATOR APPRENTICE [facility], [facility].; [place] [employer] [facility] 12-07-2023 11:22-0500 Systolic blood pressure 97 mm[Hg] Bill Mcwilliams LPN [facility], [facility].; [employer] [facility], [employer]. Comment on above: Patient Position: Sitting; Cuff Location : Left Arm; Cuff Size: Standard 04-28-2023 13:57-0400 Body height 170.18 cm [facility] Work Phone: [facility], [facility].; [facility]. 04-28-2023 13:57-0400 Body mass index (BMI) [Ratio] 21.93 kg/m2 [facility] Work Phone: [facility], [facility].; [place] [employer] [facility] 04-28-2023 13:57-0400 Body surface area Derived from formula 1.74 m2 [facility] Work Phone: [facility].; [email or web address] [facility]. 04-28-2023 13:57-0400 Body weight 63.5 kg Yana Trever SUBSTATION OPERATOR APPRENTICE Work Phone: [place] [employer].; [place] [email or web address] 04-28-2023 13:57-0400 Diastolic blood pressure 80 mm[Hg] Yana Trever SUBSTATION OPERATOR APPRENTICE Work Phone: [place] [employer].; [email or web address] Comment on above: Patient Position: Sitting; Cuff Location : Left Arm; Cuff Size: Standard 04-28-2023 13:57-0400 Heart rate 54 /min Yana Trever SUBSTATION OPERATOR APPRENTICE Work Phone: [place] [employer].; [email or web address] Comment on above: Pattern: Regular 04-28-2023 13:57-0400 Systolic blood pressure 128 mm[Hg] Yana Trever SUBSTATION OPERATOR APPRENTICE Work Phone: [place] [employer].; [email or web address] Comment on above: Patient Position: Sitting; Cuff Location : Left Arm; Cuff Size: Standard 05-11-2022 14:16-0400 Body height 170.18 cm Yana Trever SUBSTATION OPERATOR APPRENTICE Work Phone: [place] [employer].; [email or web address] 05-11-2022 14:16-0400 Body mass index (BMI) [Ratio] 21.3 kg/m2 Yana Trever SUBSTATION OPERATOR APPRENTICE Work Phone: [place] [employer].; [place] [employer]. 05-11-2022 14:16-0400 Body surface area Derived from formula 1.72 m2 Yana Trever SUBSTATION OPERATOR APPRENTICE Work Phone: [email or web address] 05-11-2022 14:16-0400 Body weight 61.69 kg Yana Trever SUBSTATION OPERATOR APPRENTICE Work Phone: [email or web address].; [email or web address] 05-11-2022 14:16-0400 Diastolic blood pressure 64 mm[Hg] Yana Trever SUBSTATION OPERATOR APPRENTICE Work Phone: [facility].; [employer]. Comment on above: Patient Position: Sitting; Cuff Location : Left Arm; Cuff Size: Standard 05-11-2022 14:16-0400 Heart rate 61 /min Yana Perera LPN Work Phone: [facility] [employer]. Comment on above: Pattern: Regular 05-11-2022 14:16-0400 Systolic blood pressure 103 mm[Hg] Yana Perera LPN Work Phone: [facility].; [email or web address] Comment on above: Patient Position: Sitting; Cuff Location : Left Arm; Cuff Size: Standard 04-14-2022 10:06-0400 Body height 170.18 cm Rena Jennings LPN [facility], [facility].; [facility], [facility]. 04-14-2022 10:06-0400 Body mass index (BMI) [Ratio] 21.46 kg/m2 Rena Jennings LPN [facility].; [place] [employer] [facility], [facility]. 04-14-2022 10:06-0400 Body surface area Derived from formula 1.72 m2 Rena Jennings LPN [facility], [facility].; [place] [employer] [facility], [facility]. 04-14-2022 10:06-0400 Body temperature 97.7 [degF] Rena Jennings LPN [facility], [facility].; [employer], [employer]. Comment on above: Method: Tympanic 04-14-2022 10:06-0400 Body weight 62.14 kg Rena Jennings LPN [facility].; [employer] [facility], [facility]. 04-14-2022 10:06-0400 Diastolic blood pressure 73 mm[Hg] Rena Jennings LPN [facility], [facility].; [employer], [employer]. Comment on above: Patient Position: Sitting; Cuff Location : Left Arm; Cuff Size: Standard 04-14-2022 10:06-0400 Heart rate 60 /min Rena Jennings LPN [facility], [facility].; [email or web address] Comment on above: Pattern: Regular 04-14-2022 10:06-0400 Respiratory rate 99 /min Rena Jennings [facility].; [email or web address] Comment on above: Pattern: Unlabored 04-14-2022 10:06-0400 Systolic blood pressure 108 mm[Hg] Rena Jennings LPN [facility].; [email or web address] Comment on above: Patient Position: Sitting; Cuff Location : Left Arm; Cuff Size: Standard 01-23-2020 15:36-0400 Body height 170.18 cm Mohamud Hills MD Work Phone: [facility].; [email or web address] 01-23-2020 15:36-0400 Body mass index (BMI) [Ratio] 22.87 kg/m2 Mohamud Hills MD Work Phone: [facility].; [email or web address] 01-23-2020 15:36-0400 Body surface area Derived from formula 1.77 m2 Mohamud Hills MD Work Phone: [place] [employer].; [email or web address] 01-23-2020 15:36-0400 Body weight 66.23 kg Mohamud Hills MD Work Phone: [place] [employer].; [employer]. 01-23-2020 15:36-0400 Diastolic blood pressure 71 mm[Hg] Mohamud Hills MD Work Phone: [place] [employer].; [employer]. Comment on above: Patient Position: Sitting; Cuff Location : Left Arm; Cuff Size: Standard 01-23-2020 15:36-0400 Heart rate 63 /min Mohamud Hills MD Work Phone: [place] [employer].; [employer]. Comment on above: Pattern: Regular 01-23-2020 15:36-0400 Systolic blood pressure 114 mm[Hg] Mohamud Hills MD Work Phone: [place] [employer].; [employer]. Comment on above: Patient Position: Sitting; Cuff Location : Left Arm; Cuff Size: Standard Encounters Encounter Date Encounter Type Care Provider Facility Start: 04-26-2025 End: 05-02-2025 Telephone encounter Julianne Valentin APRN.[employer] Work Phone: OB/Gynecology Comment on above: Orders Start: 12-21-2024 End: 12-21-2024 Subsequent hospital visit by physician Xr [facility] Tram Work Phone: Radiology Comment on above: Subacute cough [R05. 2] Start: 12-21-2024 End: 12-21-2024 ambulatory CHERRY MILLER Facility:[facility] Start: 12-21-2024 End: 12-21-2024 Patient encounter procedure Cherry Miller MINE CAR MECHANIC.[employer] Work Phone: [facility] Comment on above: Subacute cough (Prim karo Dx) Start: 11-24-2024 End: 11-24-2024 Telephone encounter Dilcia Henderson RN Mammography Comment on above: Results Start: 11-21-2024 End: 11-22-2024 ambulatory ROSELYN PINK Facility:[facility] Start: 11-21-2024 End: 11-21-2024 Subsequent hospital visit by physician Procedure Mammo Main [facility] Comment on above: Breast disorder [N64 .9] Start: 10-26-2024 End: 10-26-2024 ambulatory Enrike Lewis MD Work Phone: Mammography Comment on above: Radio Imaging Study Comments Start: 10-26-2024 End: 10-26-2024 Patient encounter procedure Enrike Lewis MD Work Phone: Mammography Start: 10-25-2024 End: 10-25-2024 Telephone encounter Julianne Valentin APRN.[employer] Work Phone: OB/Gynecology Comment on above: Results Start: 10-24-2024 End: 10-24-2024 ambulatory JULIANNE VALENTIN Facility:[facility] Start: 10-24-2024 End: 10-24-2024 Subsequent hospital visit by physician Diagnostic Mammo [facility] Wstr Mammogram Start: 10-13-2024 End: 10-13-2024 Subsequent hospital visit by physician Xr [facility] Work Phone: Radiology Comment on above: Acute cough [R05.1] Start: 10-13-2024 End: 10-13-2024 ambulatory JOSH ROMERO Facility:[facility] Start: 10-13-2024 End: 10-13-2024 Patient encounter procedure Josh Romero APRN.CNP Work Phone: [facility] Comment on above: Acute cough (Primary Dx); Rhinosinusitis Start: 10-04-2024 End: 10-04-2024 Telephone encounter Julianne Valentin APRN.[employer] Work Phone: OB/Gynecology Comment on above: Patient Question Start: 09-28-2024 End: 09-28-2024 Telephone encounter Tej Nguyễn MD Work Phone: Mammography Comment on above: Mammogram Result Herb l Back (left breast diag iva and us cb per ah) Start: 08-24-2024 End: 09-05-2024 Telephone encounter Julianne Valentin APRN.[employer] Work Phone: OB/Gynecology Comment on above: Results Start: 08-17-2024 End: 08-17-2024 ambulatory JULIANNE VALENTIN Facility:[facility] Start: 08-17-2024 Encounter for gynecological examination (general) (routine) without abnormal findings JULIANNE VALENTIN [facility] Start: 08-17-2024 End: 08-17-2024 Patient encounter status Screen [facility] Start: 08-17-2024 End: 08-17-2024 Subsequent hospital visit by physician Screen Mammo [facility] W[facility] Mammogram Comment on above: Encounter for gyneco logical examination (general) (routine) without abnormal findings [Z01.419] Start: 06-29-2024 End: 06-29-2024 ambulatory JULIANNE VALENTIN Facility:[facility] Start: 06-29-2024 End: 06-29-2024 Patient encounter procedure Julianne Valentin APRN.[employer] Work Phone: OB/Gynecology Comment on above: Family history of ma lignant neoplasm of breast (Primary Dx); Encounter for gynecological examination (general) (routine) without abnormal findings; Screening for cervical cancer; Encounter for screening for human papillomavirus (HPV); Encounter for screening mammogram for breast cancer; Dense breast tissue Start: 06-29-2024 End: 06-29-2024 Patient encounter status Julianne Valentin APRN.[employer] Work Phone: [facility] Start: 06-05-2024 Review Mohamud jones MD [facility]: [facility] Start: 06-05-2024 End: 06-05-2024 Periodic preventive med est patient 40-64yrs Mohamud Hills MD Work Phone: [facility] Start: 06-05-2024 End: 06-05-2024 Physical examination [facility] Start: 12-07-2023 End: 12-07-2023 Office outpatient visit 15 minutes Mohamud Hills MD Work Phone: [facility] Start: 08-02-2023 End: 08-02-2023 SFB Template Mohamud Hills MD Work Phone: [email or web address] Start: 07-27-2023 End: 07-27-2023 ambulatory [facility] Facility:[facility] Start: 04-28-2023 End: 04-28-2023 Patient encounter procedure Yana Perera NACHO Work Phone: [facility] Comment on above: Wellness exam to [facility]. Start: 04-22-2023 End: 04-22-2023 Orders Mohamud Hills MD Work Phone: [facility] Start: 12-02-2022 End: 12-02-2022 ambulatory Kristi [facility] Work Phone: Start: 12-02-2022 End: 12-02-2022 Patient encounter procedure [facility] Start: 07-14-2022 End: 07-14-2022 ambulatory [facility] Work Phone: Start: 07-14-2022 End: 07-14-2022 Patient encounter procedure [facility]-Laboratory, Specimen Start: 05-13-2022 End: 05-13-2022 Patient encounter procedure [facility]-Outpatient Breast Imaging Start: 05-11-2022 End: 05-11-2022 Patient encounter procedure Mohamud Hills MD Work Phone: [employer] Start: 04-14-2022 End: 04-14-2022 Office outpatient visit 15 minutes Mohamud Hills MD Work Phone: [employer] Start: 02-04-2022 End: 02-04-2022 Orders Mohamud Hills MD Work Phone: [employer] Start: 02-04-2022 End: 02-04-2022 Patient encounter procedure Mohamud Hills MD Work Phone: [employer] [employer] Start: 01-23-2020 End: 01-23-2020 Initial preventive medicine new patient 40-64yrs Mohamud Hills MD Work Phone: [employer] Start: 01-23-2020 End: 01-23-2020 Patient encounter procedure Mohamud Hills MD Work Phone: [employer]; [employer] Work Phone: Start: 01-10-2020 End: 01-10-2020 Patient encounter procedure MOHAMUD HILLS [facility] Start: 11-16-2019 End: 11-16-2019 Patient encounter procedure RENÉ LAINEZ [facility] Start: 10-02-2019 End: 10-02-2019 Patient encounter procedure RENÉ LAINEZ [facility] Start: 08-22-2019 End: 08-22-2019 Patient encounter procedure RENÉ LAINEZ [facility] Start: 07-18-2019 End: 07-18-2019 Patient encounter procedure RENÉ LAINEZ [facility] Start: 06-14-2019 End: 06-14-2019 Patient encounter procedure JADEN [facility] Start: 11-07-2012 Documentation procedure Beau Muñoz DPM Work Phone: [facility] Start: 11-07-2012 Historic EMR Beau Deleon ller DPM Work Phone: [facility] Start: 05-28-2011 Patient encounter status Neymar Muñoz DPM Work Phone: [facility] Work Phone: Physical examination Viry loyd PA-C Work Phone: [facility]. Procedures Date Procedure Procedure Detail Performing Clinician Start: 12-21-2024 Radiologic exam ches t 2 views Cherry Miller [employer]IC[employer] Work Phone: Start: 11-21-2024 Bx breast w/device 1 st lesion stereotactic guid Enrike Lewis MD Work Phone: Start: 10-24-2024 Digital breast tomosynthesis unilateral Julianne Valentin [employer]IC.[employer] Work Phone: Start: 10-13-2024 Radiologic exam ches t 2 views Josh Romero [employer]INE [employer] ME[employer]IC.[employer] Work Phone: Start: 06-05-2024 End: 06-05-2024 Depression screening Mohamud Hills MD Work Phone: Start: 06-05-2024 End: 06-05-2024 Scr dep neg, no plan reqd Mohamud rausch MD Work Phone: Start: 07-27-2023 End: 07-27-2023 Microscopic examination of cervical Papanicolaou smear Mohamud Hills MD Work Phone: Comment on above: Normal. 01/10/19 neg Benekos, 07/27/23 Polly Muñoz neg Start: 04-28-2023 End: 04-28-2023 Body mass index documented Mohamud allison MD Work Phone: Start: 04-28-2023 End: 04-28-2023 Depression screening Mohamud Hills MD Work Phone: Start: 04-28-2023 End: 04-28-2023 Scr dep neg, no plan reqd Mohamud rausch MD Work Phone: Start: 04-22-2023 End: 04-22-2023 Lab findings surveillance Yana ETIENNE Work Phone: Comment on above: 89 Start: 04-22-2023 End: 04-22-2023 Lipid panel Yana Perera LPN Work Phone: Comment on above: Normal. tc 153 hdl 6 0 ldl 82 trig 38 Start: 12-02-2022 End: 12-02-2022 Screening mammography Yana Perera LPN Work Phone: Comment on above: Normal. 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 radiology rec alternating MRI with mammo Start: 12-02-2022 MRI of bilateral imani asts with contrast Start: 05-13-2022 Screening mammography Start: 05-11-2022 End: 05-11-2022 Body mass index documented Mohamud allison MD Work Phone: Start: 05-11-2022 End: 05-11-2022 Depression screening Mohamud Hills MD Work Phone: Start: 05-11-2022 End: 05-11-2022 Scr dep neg, no plan reqd Mohamud rausch MD Work Phone: Start: 11-15-2016 End: 11-15-2016 Achilles Tendon repair Yana Perera LPN Work Phone: Comment on above: Right. Start: 11-04-2012 SURGICAL PATHOLOGY, CONVERTED Beau Muñoz DPM Work Phone: Start: 11-15-2000 End: 11-15-2000 Lumpectomy of breast Yana Perera LPN Work Phone: Comment on above: Left. Plan of Treatment Date Care Activity Detail Author Start: 08-23-2025 End: 08-23-2025 Patient encounter procedure OB/Gynecology Comment on above: ANNUAL screening codey w/ to mo, Order in imaging tab 2nd attempt- ANNUAL Start: 08-17-2025 Screening for malign ant neoplasm of breast Mammogram Screening [facility] Start: 07-16-2025 Influenza vaccination Influenz a Vaccine (Season Ended) [facility] Start: 11-29-2024 End: 11-29-2024 Patient encounter procedure Mammogram Comment on above: left breast diag iva and us cb per ah Start: 11-09-2024 End: 11-09-2024 Patient encounter procedure 11/09/2024 2:30 PM EST Appointment Mammography [address] [id number] IVA STEREO BX BREAST LEFT Mammography Comment on above: IVA STEREO BX BREAST LEFT Start: 2024 Diabetes Screening Diabetes Screenin g [facility] Start: 2024 Lipid panel Lipid Screening [facility] Start: 2024 Screening for malign ant neoplasm of colon [facility] Start: 10-24-2024 End: 10-24-2024 Patient encounter procedure 10/24/2024 9:00 AM EST Appointment Mammogram [address] [place] [address] COMP CALCS LT CB Mammogram Comment on above: COMP CALCS LT CB Start: 08-17-2024 End: 08-17-2024 Patient encounter procedure 08/17/2024 8:30 AM EDT Appointment Mammogram [address] [place] [address] MAMMO W ZAK Mammogram Comment on above: MAMMO W ZAK Start: 07-16-2024 Covid-19 Vaccine ( season) Covid-19 Vaccine ( season) [facility] Start: 07-16-2024 Influenza vaccination Influenza Vacc ine (#1) [facility] Start: 06-05-2024 Lipid panel LIPID PANEL ([id number]) Start: 05-Jun-2024 09:04-04:00 Request [facility] Start: 06-05-2024 Blood count complete auto&auto difrntl wbc CBC, PLATELETS & AUT DIFF (F) ([id number]) Start: 05-Jun-2024 09:04-04:00 Request [facility] [email or web address] Start: 06-05-2024 Comprehensive metabo lic panel CMP w/ GFR* ([id number]) Start: 05-Jun-2024 09:03-04:00 [facility] [place] [employer]. Start: 07-16-2023 Covid-19 Vaccine () Covid-19 Vaccine () [facility] Start: 07-16-2023 Influenza vaccination Influenza Vacc ine (#1) [facility] Start: 11-15-2022 Depression Assessment Depression Ass essment [facility] Start: 05-11-2022 [facility] [place] [employer] [facility]. Start: 05-11-2022 Glucose quantitative blood xcpt reagent strip [facility]. Start: 04-19-2022 Urine microalbumin profile DTaP,Tdap,Td Vaccine (2 - Td or Tdap) [facility] Start: 2019 Mammography Mammogram Screening [facility] Start: 2019 Screening for malign ant neoplasm of breast Mammogram Screening [facility] Start: 03-14-2017 Pap Testing Pap Testing [facility] Start: 03-14-2015 Screening for malign ant neoplasm of cervix Cervical Cancer Screening [facility] Start: 2009 HPV Testing HPV Testing [facility] Start: 1998 Hepatitis B Vaccine (1 of 3 - 19+ 3-dose series) Hepatitis B Vaccine (1 of 3 - 19+ 3-dose series) [facility] Start: 1998 Urine microalbumin profile DTaP,Tdap,Td Vaccine (1 - Tdap) [facility] Start: 1997 Anxiety Screening Anxiety Screening [facility] Start: 1997 Depression Screening Depression Scre ening [facility] Start: 1997 Hepatitis C Screening Hepatitis C [place] Start: 1997 Hepatitis C screening Hepatitis C [place] Start: 1997 HIV Screening HIV Screening [facility] Start: 1997 HIV screening HIV Screening [facility] Start: 05-04-1980 Covid-19 Vaccine (#1) Covid-19 Vacci ne (#1) [facility] Start: 1979 Hepatitis B Vaccine (1 of 3 - 3-dose series) Hepatitis B Vaccine (1 of 3 - 3-dose series) [facility] End: 07-29-2025 DBT Breast - bilateral screening IVA SCREENING W ZAK Radiology Routine Encounter for gynecological examination (general) (routine) without abnormal findings Encounter for screening mammogram for breast cancer Dense breast tissue 1 Occurrences starting 06/29/2024 until 07/29/2025 [facility] Work Phone: Comment on above: 1 Occurrences starti ng 06/29/2024 until 07/29/2025 DBT Breast - bilater al screening IVA SCREENING W ZAK Radiology Routine Encounter for gynecological examination (general) (routine) without abnormal findings Encounter for screening mammogram for breast cancer Dense breast tissue 08/17/2024 8:45 AM EDT [facility] Work Phone: End: 06-01-2026 MG Breast - bilateral Diagnostic IVA DIAGNOSTIC BILATERAL Radiology Routine Abnormal mammogram 1 Occurrences starting 05/02/2025 until 06/01/2026 [facility] Work Phone: Comment on above: 1 Occurrences starti ng 05/02/2025 until 06/01/2026 End: 09-23-2025 MG Breast - left Diagnostic for implant IAV DIAGNOSTIC LEFT Radiology Routine Abnormal mammogram 1 Occurrences starting 08/24/2024 until 09/23/2025 [facility] Work Phone: Comment on above: 1 Occurrences starti ng 08/24/2024 until 09/23/2025 End: 11-25-2025 MG stereo Guidance for biopsy of Breast - left IVA STEREO BX BREAST LEFT Radiology Routine Breast disorder 1 Occurrences starting 10/26/2024 until 11/25/2025 [facility] Work Phone: Comment on above: 1 Occurrences starti ng 10/26/2024 until 11/25/2025 Path report.final Dx Spec [facility] Work Phone: SURGICAL PATHOLOGY [facility] Work Phone: Comment on above: Release Upon Pagein g for 1 Occurrences starting 11/21/2024, 1 completed End: 09-23-2025 US Breast - left limited US BREAST LTD LEFT Radiology Routine Abnormal mammogram 1 Occurrences starting 08/24/2024 until 09/23/2025 [facility] Comment on above: 1 Occurrences starti ng 08/24/2024 until 09/23/2025 End: 06-01-2026 US Breast - left limited US BREAST LTD LEFT Radiology Routine Abnormal mammogram History of breast biopsy 1 Occurrences starting 05/02/2025 until 06/01/2026 [facility] Comment on above: 1 Occurrences starti ng 05/02/2025 until 06/01/2026 Immunizations Immunization Date Immunization Notes Care Provider [facility] 10-31-2021 COVID-Moderna (50 MCG/0.25 ML) Mohamud Hills MD Work Phone: [facility] 01-17-2021 COVID-Moderna (100 MCG/0.5 ML) Mohamud Hills MD Work Phone: [facility]; [facility] 12-20-2020 COVID-Moderna (100 MCG/0.5 ML) Mohamud Hills MD Work Phone: [facility]; [facility] 09-05-2020 influenza virus vaccine, unspecified formulation Julianne Homero SANCHEZ Work Phone: [facility] 04-19-2012 tetanus toxoid, reduced diphtheria toxoid, and acellular pertussis vaccine, adsorbed Mohamud Hills MD Work Phone: [facility]; [facility] Payers Date Payer Category Payer Unknown [id number] 2023 Private Health Insurance [employer] PPO [id number] 2023 Unknown [id number] 2022 Self-pay [id number] 2010 Unknown [id number] 2010 Unknown [id number] 2007 Unknown [id number] 1979 Unknown [id number] 1979 Unknown [id number] 1979 Unknown [id number] 1979 Unknown [id number] 1979 Unknown [id number] [id number] 1979 Unknown [id number] 651 Unknown [id number] Unknown [id number] Social History Date Type Detail Facility Start: 10-07-2016 End: 10-07-2016 Tobacco smoking status GAIS Unknown if ever smoked [facility] Start: 1980 Sex Assigned At Female [facility] Start: 05-28-2011 End: 06-29-2024 Tobacco smoking status NHIS Never smoked tobacco [facility] Work Phone: Start: 07-16-2012 End: 12-21-2024 Alcohol intake Current non-drinker of alcohol (finding) [facility] Start: 03-13-2019 End: 06-29-2024 History of Social function [facility]. Start: 03-13-2019 End: 06-29-2024 Tobacco use panel [facility] Work Phone: National Score (1-100), lower number is lower risk Not on file [facility] Start: 1980 Sex Assigned At Not on file [facility] Tobacco Use: Tobacco Use: ; N ever smoker. [facility]. Start: 06-29-2024 Tobacco use and exposure Smokeless tobacco non-user [facility] Medical Equipment Procedure Code Equipment Code Equipment Origin al Text Equipment Identifier Dates Stereo Clip [id number] Start: 11-21-2024 Comment on above: Description: Stoplig ht clip Clinical Notes 06-29-2024 to 04-26-2025 Telephone Encounter - Julianne Valentin APRN.CNP - 04/26/2025 10:34 AM EDTTelephone Encounter - Julianne Valentin APRN.CNP - 04/26/2025 10:34 AM KERENTKaiden Tovar RT(R) - 12/21/2024 12:20 PM EST Note Date & Type Note Facility 04-26-2025 Telephone encounter Note Phone note 11/24/24 states: Called pt to inform her the breast pathology results are benign per Dr. Gomes. Pt. was told to F/U with further imaging in 6 months. She verbalized understanding. Pathology report recommends screening in 6 months. Can we confirm with Dr. Gomes's office whether diagnostic vs screening imaging is indicated at this time? Julianne Valentin APRN.CNP [facility] 04-26-2025 Miscellaneous Notes Phone note 11/24/24 states: Called pt to inform her the breast pathology results are benign per Dr. Gomes. Pt. was told to F/U with further imaging in 6 months. She verbalized understanding. Pathology report recommends screening in 6 months. Can we confirm with Dr. Gomes's office whether diagnostic vs screening imaging is indicated at this time? Julianne Valentin APRN.MAUREEN Patient called requesting order for follow up mammogram after having breast bx on 11/21/2024. Patient said that she received a call saying she need f/u imaging in 6 months. Breast bx results from 11/21/24 mention return to yearly screening. Please advise. documented in this encounter [facility] 04-26-2025 Telephone encounter Note Patient called requesting order for follow up mammogram after having breast bx on 11/21/2024. Patient said that she received a call saying she need f/u imaging in 6 months. Breast bx results from 11/21/24 mention return to yearly screening. Please advise. [facility] 12-21-2024 History of Present illness Narrative Radiology Service Progress Note PATIENT NAME: Rosalva Dupont DATE OF SERVICE: December 21, 2024 TIME: 12:05 PM PATIENT IDENTITY VERIFICATION COMPLETED USING TWO (2) IDENTIFIERS: Name and Date of confirmed by patient verbally. FALL SCREENING: Has the patient had 2 falls in the last year or 1 fall with injury or currently using an Ambulatory Assistive Device (Walker, Cane, Wheelchair, Crutches, etc.)? No PATIENT GENDER DATA: Assigned female at . status: : No status: NO. PATIENT RELEVANT IMPLANT DATA REVIEWED: Not Applicable PATIENT PRESENTS WITH AN IMPLANTABLE OR ATTACHED ENGINE SERVICE REPAIRER: No RADIOLOGY DEPARTMENT: General X-ray: Exam(s) Completed: Chest X-Ray PERIPHERAL IV DATA: Not applicable SIGNED BY: RT Raheem(R) December 21, 2024 12:05 PM documented in this encounter [facility] 12-21-2024 Note HNO ID: [id number] Author: KAIDEN TOVAR RT(R) Service: Radiology Author Type: Technologist Type: Progress Notes Filed: 12/21/2024 12:11 Note Text: Radiology Service Progress Note PATIENT NAME: Rosalva Dupont DATE OF SERVICE: December 21, 2024 TIME: 12:05 PM PATIENT IDENTITY VERIFICATION COMPLETED USING TWO (2) IDENTIFIERS: Name and Date of confirmed by patient verbally. FALL SCREENING: Has the patient had 2 falls in the last year or 1 fall with injury or currently using an Ambulatory Assistive Device (Walker, Cane, Wheelchair, Crutches, etc.)? No PATIENT GENDER DATA: Assigned female at . status: : No status: NO. PATIENT RELEVANT IMPLANT DATA REVIEWED: Not Applicable PATIENT PRESENTS WITH AN IMPLANTABLE OR ATTACHED ENGINE SERVICE REPAIRER: No RADIOLOGY DEPARTMENT: General X-ray: Exam(s) Completed: Chest X-Ray PERIPHERAL IV DATA: Not applicable SIGNED BY: RT Raheem(Gayla) December 21, 2024 12:05 PM [facility] 12-21-2024 Note HNO ID: [id number] Author: CHERRY MILLER APRN.[employer] Service: ? Author Type: Nurse Practitioner Type: Progress Notes Filed: 12/21/2024 12:29 Note Text: This note was created using NoteWriter. Subjective Rosalva Dupont is a 44 year old female. 44 year old female with PMH migraine presents for cough Acute onset mid September +cough +chest congestion +productive at times and then non productive at others Denies accompanying URI sx Denies fever or chills Denies CP Denies dyspnea Denies abdominal pain Has tried OTC Seen last month for similar Was seen here late September for same Denies follow up with PCP Denies tobacco usage The history is provided by the patient. No speech language pathologist prn was used. Cough This is a recurrent problem. The current episode started more than 1 week ago. The problem occurs constantly. The problem has been gradually worsening. Cough characteristics: productive at times and non productive at others. There has been no fever. Pertinent negatives include no chest pain, no chills, no sweats, no weight loss, no ear congestion, no ear pain, no headaches, no rhinorrhea, no sore throat, no myalgias, no shortness of breath, no wheezing and no eye redness. She has tried nothing for the symptoms. She is not a smoker. Her past medical history does not include bronchitis, pneumonia, bronchiectasis, COPD, emphysema or asthma. PAST MEDICAL HISTORY Diagnosis Date At high risk for breast cancer 10/25/2024 October 25, 2024 Based on the Tyrer-Cuzick (TC) risk assessment model, this patient has a 21.7% lifetime risk of developing breast cancer Julianne Valentin APRN.[employer] Dense breast 10/25/2024 Migraine PAST SURGICAL HISTORY Procedure Laterality Date PAST SURGICAL HISTORY OF 2002 benign lump, left breast, Biju Cancer ALLERGIES Patient has no known allergies. MEDICATIONS Norethindrone, Contraceptive, 0.35 mg tablet Take 1 tablet by mouth every 24 hours. triamcinolone acetonide (NASACORT ALLERGY) 55 mcg nasal inhaler Use 2 Sprays in each nostril once daily. predniSONE (DELTASONE) 10 mg tablet Take 4 tabs daily for 3 days, then 2 tabs daily for 3 days, then 1 tab daily for 3 days with food. benzonatate (TESSALON PERLE) 100 mg capsule Take 1 capsule by mouth three times a day as needed for cough. FAMILY HISTORY Problem Relation Age of Onset Breast Cancer Mother Early 40s, in remission Prostate Cancer Father Alzheimer's Disease Maternal Grandmother late in life Cancer Paternal Aunt brain tumor Colon Cancer Other none Coronary Artery Disease Other none Diabetes Other none Social History Tobacco Use Smoking status: Never Smokeless tobacco: Never Substance Use Topics Alcohol use: No Drug use: No Review of Systems Constitutional: Negative for chills and weight loss. HENT: Positive for congestion. Negative for ear pain, rhinorrhea and sore throat. Eyes: Negative for redness. Respiratory: Positive for cough. Negative for shortness of breath and wheezing. Cardiovascular: Negative for chest pain. Gastrointestinal: Negative for abdominal pain, diarrhea, nausea and vomiting. Musculoskeletal: Negative for arthralgias, back pain and myalgias. Skin: Negative for color change, pallor and rash. Allergic/Immunologic: Negative for environmental allergies and food allergies. Neurological: Negative for dizziness, facial asymmetry and headaches. Hematological: Negative for adenopathy. Does not bruise/bleed easily. Psychiatric/Behavioral: Negative for agitation and behavioral problems. Objective BP 102/66 Pulse 82 Temp 36.9 ?C (98.5 ?F) Resp 12 Wt 62.1 kg (136 lb 14.5 oz) LMP (LMP Unknown) SpO2 96% BMI 20.82 kg/m? Physical Exam Vitals and nursing note reviewed. Constitutional: General: She is not in acute distress. Appearance: Normal appearance. She is normal weight. She is not ill-appearing, toxic-appearing or diaphoretic. HENT: Head: Normocephalic and atraumatic. Right Ear: Ear canal and external ear normal. Left Ear: Ear canal and external ear normal. Nose: Nose normal. No congestion or rhinorrhea. Mouth/Throat: Mouth: Mucous membranes are moist. Pharynx: No oropharyngeal exudate or posterior oropharyngeal erythema. Eyes: General: Right eye: No discharge. Left eye: No discharge. Extraocular Movements: Extraocular movements intact. Conjunctiva/sclera: Conjunctivae normal. Pupils: Pupils are equal, round, and reactive to light. Cardiovascular: Rate and Rhythm: Normal rate and regular rhythm. Pulses: Normal pulses. Heart sounds: Normal heart sounds. No murmur heard. No friction rub. Pulmonary: Effort: Pulmonary effort is normal. No respiratory distress. Breath sounds: Normal breath sounds. No stridor. No wheezing, rhonchi or rales. Chest: Chest wall: No tenderness. Abdominal: General: Abdomen is flat. There is no distension. Palpations: Abdomen is soft. There is no mass (more content not included)... [facility] 12-21-2024 History of Present illness Narrative This note was created using Admaticriter. Subjective Rosalva Dupont is a 44 year old female. 44 year old female with PMH migraine presents for cough Acute onset mid September +cough +chest congestion +productive at times and then non productive at others Denies accompanying URI sx Denies fever or chills Denies CP Denies dyspnea Denies abdominal pain Has tried OTC Seen last month for similar Was seen here late September for same Denies follow up with PCP Denies tobacco usage The history is provided by the patient. No speech language pathologist prn was used. Cough This is a recurrent problem. The current episode started more than 1 week ago. The problem occurs constantly. The problem has been gradually worsening. Cough characteristics: productive at times and non productive at others. There has been no fever. Pertinent negatives include no chest pain, no chills, no sweats, no weight loss, no ear congestion, no ear pain, no headaches, no rhinorrhea, no sore throat, no myalgias, no shortness of breath, no wheezing and no eye redness. She has tried nothing for the symptoms. She is not a smoker. Her past medical history does not include bronchitis, pneumonia, bronchiectasis, COPD, emphysema or asthma. PAST MEDICAL HISTORY Diagnosis Date At high risk for breast cancer 10/25/2024 October 25, 2024 Based on the Tyrer-Cuzick (TC) risk assessment model, this patient has a 21.7% lifetime risk of developing breast cancer Julianne Valentin APRN.[employer] Dense breast 10/25/2024 Migraine PAST SURGICAL HISTORY Procedure Laterality Date PAST SURGICAL HISTORY OF 2002 benign lump, left breast, Biju Cancer ALLERGIES Patient has no known allergies. MEDICATIONS Norethindrone, Contraceptive, 0.35 mg tablet Take 1 tablet by mouth every 24 hours. triamcinolone acetonide (NASACORT ALLERGY) 55 mcg nasal inhaler Use 2 Sprays in each nostril once daily. predniSONE (DELTASONE) 10 mg tablet Take 4 tabs daily for 3 days, then 2 tabs daily for 3 days, then 1 tab daily for 3 days with food. benzonatate (TESSALON PERLE) 100 mg capsule Take 1 capsule by mouth three times a day as needed for cough. FAMILY HISTORY Problem Relation Age of Onset Breast Cancer Mother Early 40s, in remission Prostate Cancer Father Alzheimer's Disease Maternal Grandmother late in life Cancer Paternal Aunt brain tumor Colon Cancer Other none Coronary Artery Disease Other none Diabetes Other none Social History Tobacco Use Smoking status: Never Smokeless tobacco: Never Substance Use Topics Alcohol use: No Drug use: No Review of Systems Constitutional: Negative for chills and weight loss. HENT: Positive for congestion. Negative for ear pain, rhinorrhea and sore throat. Eyes: Negative for redness. Respiratory: Positive for cough. Negative for shortness of breath and wheezing. Cardiovascular: Negative for chest pain. Gastrointestinal: Negative for abdominal pain, diarrhea, nausea and vomiting. Musculoskeletal: Negative for arthralgias, back pain and myalgias. Skin: Negative for color change, pallor and rash. Allergic/Immunologic: Negative for environmental allergies and food allergies. Neurological: Negative for dizziness, facial asymmetry and headaches. Hematological: Negative for adenopathy. Does not bruise/bleed easily. Psychiatric/Behavioral: Negative for agitation and behavioral problems. Objective BP 102/66 Pulse 82 Temp 36.9 C (98.5 F) Resp 12 Wt 62.1 kg (136 lb 14.5 oz) LMP (LMP Unknown) SpO2 96% BMI 20.82 kg/m Physical Exam Vitals and nursing note reviewed. Constitutional: General: She is not in acute distress. Appearance: Normal appearance. She is normal weight. She is not ill-appearing, toxic-appearing or diaphoretic. HENT: Head: Normocephalic and atraumatic. Right Ear: Ear canal and external ear normal. Left Ear: Ear canal and external ear normal. Nose: Nose normal. No congestion or rhinorrhea. Mouth/Throat: Mouth: Mucous membranes are moist. Pharynx: No oropharyngeal exudate or posterior oropharyngeal erythema. Eyes: General: Right eye: No discharge. Left eye: No discharge. Extraocular Movements: Extraocular movements intact. Conjunctiva/sclera: Conjunctivae normal. Pupils: Pupils are equal, round, and reactive to light. Cardiovascular: Rate and Rhythm: Normal rate and regular rhythm. Pulses: Normal pulses. Heart sounds: Normal heart sounds. No murmur heard. No friction rub. Pulmonary: Effort: Pulmonary effort is normal. No respiratory distress. Breath sounds: Normal breath sounds. No stridor. No wheezing, rhonchi or rales. Chest: Chest wall: No tenderness. Abdominal: General: Abdomen is flat. There is no distension. Palpations: Abdomen is soft. There is no mass. Tenderness: There is no abdominal tenderness. There is no right CVA tenderness, left CVA tenderness, guarding or rebound. Hernia: No hernia is present. Musculoskeletal: General: No swelling, tenderness, deformity or signs of injury. Normal range of motion. Cervical back: Normal range of motion and neck supple. No rigidity. Right lower leg: No edema. Left lower leg: No edema. Lymphadenopathy: Cervical: No cervical adenopathy. Skin: General: Skin is warm and dry. Coloration: Skin is not jaundiced or pale. Findings: No bruising, erythema, lesion or rash. Neurological: General: No focal deficit present. Mental Status: She is alert and oriented to person, place, and time. Cranial Nerves: No cranial nerve deficit. Sensory: No sensory deficit. Motor: No weakness. Coordination: Coordination normal. Gait: Gait normal. Psychiatric: Mood and Affect: Mood normal. Behavior: Behavior normal. Thought Content: Thought content normal. Judgment: Judgment normal. Assessment and Plan ASSESSMENT/PLAN: 1. Subacute cough - ICD9: 786.2, ICD10: R05.2 Ongoing since September Seen here at [facility], CXR then negative Seen last month for same per patient - XR CHEST 2V FRONTAL/LAT-negative Cough variant vs post tussive RX Nasacort Prednisone taper Gilberto Negro F/U with PCP for continued symptoms Cherry Miller APRN.[employer] documented in this encounter [facility] 11-21-2024 Instructions Formatting of th is note might be different from the original. AMBULATORY PATIENT EDUCATION RADIOLOGY TOPIC: Pre- Procedure Teaching:Logistics / Protocols / Complication Prevention Post- Procedure Teaching: Symptom Management / Wound Care READINESS TO LEARN COGNITIVE ABILITY: Alert and oriented MOTIVATION TO LEARN: Interested FAMILY SUPPORT: Unable to assess - Family not present INSTRUCTION PROVIDED TO: Patient PATIENT LEARNS BEST BY: Individual Instruction Written Instruction - Hand-outs Verbal Instruction FACTORS AFFECTING LEARNING: None PHYSICAL LIMITATIONS AFFECTING LEARNING: None LEARNING RESPONSE Radiology Procedures Breast BX, Vacuum Assist and Clip Deployment METHOD OF INSTRUCTION: Individual instruction Written instruction - handouts Verbal instruction PATIENT / FAMILY RESPONSE: Performs skill independently: Wound care FOLLOW-UP PLAN: Follow up phone call. SUPPLEMENTAL MATERIAL: Homegoing instructions REFERRAL (RECOMMENDATION): None [facility] 11-21-2024 Miscellaneous Notes AMBULATORY PATIENT EDUCATION RADIOLOGY TOPIC: Pre- Procedure Teaching:Logistics / Protocols / Complication Prevention Post- Procedure Teaching: Symptom Management / Wound Care READINESS TO LEARN COGNITIVE ABILITY: Alert and oriented MOTIVATION TO LEARN: Interested FAMILY SUPPORT: Unable to assess - Family not present INSTRUCTION PROVIDED TO: Patient PATIENT LEARNS BEST BY: Individual Instruction Written Instruction - Hand-outs Verbal Instruction FACTORS AFFECTING LEARNING: None PHYSICAL LIMITATIONS AFFECTING LEARNING: None LEARNING RESPONSE Radiology Procedures Breast BX, Vacuum Assist and Clip Deployment METHOD OF INSTRUCTION: Individual instruction Written instruction - handouts Verbal instruction PATIENT / FAMILY RESPONSE: Performs skill independently: Wound care FOLLOW-UP PLAN: Follow up phone call. SUPPLEMENTAL MATERIAL: Homegoing instructions REFERRAL (RECOMMENDATION): None documented in this encounter [facility] 10-26-2024 Note HNO ID: [id number] Author: ENRIKE LEWIS MD Service: ? Author Type: Physician Type: Progress Notes Filed: 10/26/2024 08:04 Note Text: IMAGING CONSULT Imaging submitted for review: Left breast diagnostic mammogram 10/24/2024. Comparison to screening mammograms 08/17/2024, 05/13/2022, and 05/15/2020. Agree with recommendation of left stereotactic guided biopsy. Biopsy may not be possible due to breast thickness, but should be attempted with a prone zak table. Order placed in Epic. A breast imaging nurse navigator will call the patient to assist in scheduling biopsy. [facility] 10-26-2024 History of Present illness Narrative IMAGING CONSULT Imaging submitted for review: Left breast diagnostic mammogram 10/24/2024. Comparison to screening mammograms 08/17/2024, 05/13/2022, and 05/15/2020. Agree with recommendation of left stereotactic guided biopsy. Biopsy may not be possible due to breast thickness, but should be attempted with a prone zak table. Order placed in Epic. A breast imaging nurse navigator will call the patient to assist in scheduling biopsy. documented in this encounter [facility] 10-24-2024 History of Present illness Narrative Radiology Service Progress Note PATIENT NAME: Rosalva Dupont DATE OF SERVICE: October 24, 2024 TIME: 8:46 AM PATIENT IDENTITY VERIFICATION COMPLETED USING TWO (2) IDENTIFIERS: Name and Date of confirmed by patient verbally. FALL SCREENING: Has the patient had 2 falls in the last year or 1 fall with injury or currently using an Ambulatory Assistive Device (Walker, Cane, Wheelchair, Crutches, etc.)? No PATIENT GENDER DATA: Female. status: : No status: NO. PATIENT RELEVANT IMPLANT DATA REVIEWED: Not Applicable PATIENT PRESENTS WITH AN IMPLANTABLE OR ATTACHED ENGINE SERVICE REPAIRER: No RADIOLOGY DEPARTMENT: Mammography PERIPHERAL IV DATA: Not applicable SIGNED BY: Jez Zaman October 24, 2024 8:46 AM documented in this encounter [facility] 10-24-2024 Note HNO ID: [id number] Author: SENAIT MARTIN Mammo Tech Service: ? Author Type: Gasoline Service Attendant Type: Progress Notes Filed: 10/24/2024 08:46 Note Text: Radiology Service Progress Note PATIENT NAME: Rosalva Dupont DATE OF SERVICE: October 24, 2024 TIME: 8:46 AM PATIENT IDENTITY VERIFICATION COMPLETED USING TWO (2) IDENTIFIERS: Name and Date of confirmed by patient verbally. FALL SCREENING: Has the patient had 2 falls in the last year or 1 fall with injury or currently using an Ambulatory Assistive Device (Walker, Cane, Wheelchair, Crutches, etc.)? No PATIENT GENDER DATA: Female. status: : No status: NO. PATIENT RELEVANT IMPLANT DATA REVIEWED: Not Applicable PATIENT PRESENTS WITH AN IMPLANTABLE OR ATTACHED ENGINE SERVICE REPAIRER: No RADIOLOGY DEPARTMENT: Mammography PERIPHERAL IV DATA: Not applicable SIGNED BY: Jez Zaman October 24, 2024 8:46 AM [facility] 10-13-2024 History of Present illness Narrative Radiology Service Progress Note PATIENT NAME: Rosalva Dupont DATE OF SERVICE: October 13, 2024 TIME: 9:10 AM PATIENT IDENTITY VERIFICATION COMPLETED USING TWO (2) IDENTIFIERS: Name and Date of confirmed by patient verbally. FALL SCREENING: Has the patient had 2 falls in the last year or 1 fall with injury or currently using an Ambulatory Assistive Device (Walker, Cane, Wheelchair, Crutches, etc.)? No PATIENT GENDER DATA: Female. status: : No status: NO. PATIENT RELEVANT IMPLANT DATA REVIEWED: Not Applicable PATIENT PRESENTS WITH AN IMPLANTABLE OR ATTACHED ENGINE SERVICE REPAIRER: No RADIOLOGY DEPARTMENT: General X-ray: Exam(s) Completed: Chest X-Ray PERIPHERAL IV DATA: Not applicable SIGNED BY: RT Romie(Gayla) October 13, 2024 9:10 AM documented in this encounter [facility] 10-13-2024 Note HNO ID: [id number] Author: MEGAN ROBBINS RT (R) Service: ? Author Type: Technologist Type: Progress Notes Filed: 10/13/2024 09:16 Note Text: Radiology Service Progress Note PATIENT NAME: Rosalva Dupont DATE OF SERVICE: October 13, 2024 TIME: 9:10 AM PATIENT IDENTITY VERIFICATION COMPLETED USING TWO (2) IDENTIFIERS: Name and Date of confirmed by patient verbally. FALL SCREENING: Has the patient had 2 falls in the last year or 1 fall with injury or currently using an Ambulatory Assistive Device (Walker, Cane, Wheelchair, Crutches, etc.)? No PATIENT GENDER DATA: Female. status: : No status: NO. PATIENT RELEVANT IMPLANT DATA REVIEWED: Not Applicable PATIENT PRESENTS WITH AN IMPLANTABLE OR ATTACHED ENGINE SERVICE REPAIRER: No RADIOLOGY DEPARTMENT: General X-ray: Exam(s) Completed: Chest X-Ray PERIPHERAL IV DATA: Not applicable SIGNED BY: RT Romie(Gayla) October 13, 2024 9:10 AM [facility] 10-13-2024 Note HNO ID: [id number] Author: JOSH ROMERO APRN.MAUREEN Service: ? Author Type: Nurse Practitioner Type: Progress Notes Filed: 10/13/2024 09:44 Note Text: CC: Patient presents with: Cough: Head and chest congestion x2 weeks HPI: Rosalva Dupont is a 43 year old female who presents to the office with complaint of chest congestion, head congestion, and cough, productive for 2 weeks. Symptoms are worsening Associated symptoms includes cough. Denies nausea, vomiting , and diarrhea. Treatments tried include nothing so far. with no relief of symptoms. Sick contacts: unknown. History of asthma, frequent episodes of bronchitis, chronic bronchitis, bronchiectasis or COPD: No Smoker: No Seasonal/environmental allergies: No The ROS is otherwise negative. The patient's pmh, medications, allergies, and past visits are reviewed. PHYSICAL EXAM: BP 119/62 Pulse 72 Temp 36.8 ?C (98.2 ?F) Resp 18 Wt 62.7 kg (138 lb 3.7 oz) LMP (LMP Unknown) SpO2 98% BMI 21.02 kg/m? General appearance: alert, cooperative, pleasant, in no acute distress Head: Normocephalic Eyes: EOM's intact, conjunctiva pink and moist, no icterus, sclera white, non-injected Ears: Right ear: External ear/canal- Normal, TM - clear with good landmarks. Left ear: External ear/canal- Normal, TM - clear with good landmarks Oropharynx:mild erythema, without exudates present Heart: Negative. RRR without obvious murmur, gallop, or rubs. No ectopy. Lungs: wheezing lower base PAST MEDICAL HISTORY Diagnosis Date Migraine PAST SURGICAL HISTORY Procedure Laterality Date PAST SURGICAL HISTORY OF 2002 benign lump, left breast, Biju Cancer ALLERGIES Patient has no known allergies. MEDICATIONS Norethindrone, Contraceptive, 0.35 mg tablet Take 1 tablet by mouth every 24 hours. FAMILY HISTORY Problem Relation Age of Onset Breast Cancer Mother Early 40s, in remission Prostate Cancer Father Alzheimer's Disease Maternal Grandmother late in life Cancer Paternal Aunt brain tumor Colon Cancer Other none Coronary Artery Disease Other none Diabetes Other none Social History Tobacco Use Smoking status: Never Smokeless tobacco: Never Substance Use Topics Alcohol use: No Drug use: No ASSESSMENT/PLAN: 1. Acute cough - ICD9: 786.2, ICD10: R05.1 (primary diagnosis) - XR CHEST 2V FRONTAL/LAT - neg 2. Rhinosinusitis - ICD9: 473.9, ICD10: J32.9 - DOXYCYCLINE HYCLATE 100 MG TABLET Prescription instructions reviewed with patient as applicable. Potential red flag symptoms discussed with the patient. Reviewed appropriate action plan to take if red flag symptoms occur. Patient agreeable to treatment plan. Josh Romero APRN.[facility] 10-13-2024 History of Present illness Narrative CC: Patient presents with: Cough: Head and chest congestion x2 weeks HPI: Rosalva Dupont is a 43 year old female who presents to the office with complaint of chest congestion, head congestion, and cough, productive for 2 weeks. Symptoms are worsening Associated symptoms includes cough. Denies nausea, vomiting , and diarrhea. Treatments tried include nothing so far. with no relief of symptoms. Sick contacts: unknown. History of asthma, frequent episodes of bronchitis, chronic bronchitis, bronchiectasis or COPD: No Smoker: No Seasonal/environmental allergies: No The ROS is otherwise negative. The patient's pmh, medications, allergies, and past visits are reviewed. PHYSICAL EXAM: BP 119/62 Pulse 72 Temp 36.8 C (98.2 F) Resp 18 Wt 62.7 kg (138 lb 3.7 oz) LMP (LMP Unknown) SpO2 98% BMI 21.02 kg/m General appearance: alert, cooperative, pleasant, in no acute distress Head: Normocephalic Eyes: EOM's intact, conjunctiva pink and moist, no icterus, sclera white, non-injected Ears: Right ear: External ear/canal- Normal, TM - clear with good landmarks. Left ear: External ear/canal- Normal, TM - clear with good landmarks Oropharynx:mild erythema, without exudates present Heart: Negative. RRR without obvious murmur, gallop, or rubs. No ectopy. Lungs: wheezing lower base PAST MEDICAL HISTORY Diagnosis Date Migraine PAST SURGICAL HISTORY Procedure Laterality Date PAST SURGICAL HISTORY OF 2002 benign lump, left breast, Biju Cancer ALLERGIES Patient has no known allergies. MEDICATIONS Norethindrone, Contraceptive, 0.35 mg tablet Take 1 tablet by mouth every 24 hours. FAMILY HISTORY Problem Relation Age of Onset Breast Cancer Mother Early 40s, in remission Prostate Cancer Father Alzheimer's Disease Maternal Grandmother late in life Cancer Paternal Aunt brain tumor Colon Cancer Other none Coronary Artery Disease Other none Diabetes Other none Social History Tobacco Use Smoking status: Never Smokeless tobacco: Never Substance Use Topics Alcohol use: No Drug use: No ASSESSMENT/PLAN: 1. Acute cough - ICD9: 786.2, ICD10: R05.1 (primary diagnosis) - XR CHEST 2V FRONTAL/LAT - neg 2. Rhinosinusitis - ICD9: 473.9, ICD10: J32.9 - DOXYCYCLINE HYCLATE 100 MG TABLET Prescription instructions reviewed with patient as applicable. Potential red flag symptoms discussed with the patient. Reviewed appropriate action plan to take if red flag symptoms occur. Patient agreeable to treatment plan. Josh Romero APRN.CNP documented in this encounter [facility] 10-04-2024 Telephone encounter Note Patient called back and decided to still proceed with scheduling diagnostic imaging until November d/t her insurance deductible. Advised provider recommends keeping, but ultimately that's her decision. Transferred to breast imaging scheduling department. Raven Dick RN [facility] 10-04-2024 Miscellaneous Notes Patient called back and decided to still proceed with scheduling diagnostic imaging until November d/t her insurance deductible. Advised provider recommends keeping, but ultimately that's her decision. Transferred to breast imaging scheduling department. Raven Dick RN Patient notified and voiced understanding. Nakita Kidd RN I recommend keeping appt as scheduled. Julianne Valentin APRN.CNP Patient needs additional imaging of left breast. Patient is scheduled for October. She is wanting 's opinion. Do you feel patient could push out the diagnostic mammogram to November or should she keep the appointment. Taylor Mackenzie RN documented in this encounter [facility] 10-04-2024 Telephone encounter Note Patient notified and voiced understanding. Nakita Kidd RN [facility] 10-04-2024 Telephone encounter Note I recommend keeping appt as scheduled. Julianne Valentin APRN.[employer] [facility] 10-04-2024 Telephone encounter Note Patient needs additional imaging of left breast. Patient is scheduled for October. She is wanting 's opinion. Do you feel patient could push out the diagnostic mammogram to November or should she keep the appointment. Taylor Mackenzie RN [facility] 09-05-2024 Telephone encounter Note 3rd attempt. Letter was sent by mammography too. Raven Dick RN [facility] 09-05-2024 Miscellaneous Notes 3rd attempt. Letter was sent by mammography too. Raven Dick RN Attempt #2. Left message for patient to call office. She has not viewed mychart message yet. Raven Dick RN Left message for patient to call office or check mychart message. Raven Dick RN documented in this encounter [facility] 08-31-2024 Telephone encounter Note Attempt #2. Left message for patient to call office. She has not viewed mychart message yet. Raven Dick RN [facility] 08-28-2024 Telephone encounter Note Left message for patient to call office or check [employer] message. Raven Dick RN [facility] 08-17-2024 History of Present illness Narrative Radiology Service Progress Note PATIENT NAME: Rosalva Dupont DATE OF SERVICE: August 17, 2024 TIME: 9:03 AM PATIENT IDENTITY VERIFICATION COMPLETED USING TWO (2) IDENTIFIERS: Name and Date of confirmed by patient verbally. FALL SCREENING: Has the patient had 2 falls in the last year or 1 fall with injury or currently using an Ambulatory Assistive Device (Walker, Cane, Wheelchair, Crutches, etc.)? No PATIENT GENDER DATA: Female. status: : No status: NO. PATIENT RELEVANT IMPLANT DATA REVIEWED: Not Applicable PATIENT PRESENTS WITH AN IMPLANTABLE OR ATTACHED ENGINE SERVICE REPAIRER: No RADIOLOGY DEPARTMENT: Mammography PERIPHERAL IV DATA: Not applicable SIGNED BY: Jez Moreno August 17, 2024 9:03 AM documented in this encounter [facility] 08-17-2024 Note HNO ID: [id number] Author: FRED SARMIENTO Mammo Tech Service: ? Author Type: Gasoline Service Attendant Type: Progress Notes Filed: 08/17/2024 09:03 Note Text: Radiology Service Progress Note PATIENT NAME: Rosalva Dupont DATE OF SERVICE: August 17, 2024 TIME: 9:03 AM PATIENT IDENTITY VERIFICATION COMPLETED USING TWO (2) IDENTIFIERS: Name and Date of confirmed by patient verbally. FALL SCREENING: Has the patient had 2 falls in the last year or 1 fall with injury or currently using an Ambulatory Assistive Device (Walker, Cane, Wheelchair, Crutches, etc.)? No PATIENT GENDER DATA: Female. status: : No status: NO. PATIENT RELEVANT IMPLANT DATA REVIEWED: Not Applicable PATIENT PRESENTS WITH AN IMPLANTABLE OR ATTACHED ENGINE SERVICE REPAIRER: No RADIOLOGY DEPARTMENT: Mammography PERIPHERAL IV DATA: Not applicable SIGNED BY: Fred Sarmiento [employer] August 17, 2024 9:03 AM [facility] 06-29-2024 Instructions Julianne Valentin APRN.MAUREEN - 06/29/2024 8:15 AM EDT A 3-dose schedule is recommended for people who get the first dose on or after their 15th birthday, and for people with certain immunocompromising conditions. In a 3-dose series, the second dose should be given 1-2 months after the first dose, and the third dose should be given 6 months after the first dose (0, 1-2, 6-month schedule). The minimum intervals are 4 weeks between the first and second dose, 12 weeks between the second and third doses, and 5 months between the first and third doses. If a vaccine dose is administered after a shorter interval, it should be re-administered after another minimum interval has elapsed since the most recent dose. If the vaccination schedule is interrupted, vaccine doses do not need to be repeated (no maximum interval). discus documented in this encounter [facility] 06-29-2024 Note HNO ID: [id number] Author: JULIANNE VALENTIN APRN.MAUREEN Service: ? Author Type: Nurse Practitioner Type: Progress Notes Filed: 06/29/2024 09:14 Note Text: Rosalva is a 43 year old No obstetric history on file. who presents for an annual gynecologic exam without complaints. Menses: no menses - progesterone only contraception Contraception: Progestin - only contraceptives and vasectomy HPV vaccine: No Last Pap: normal 2022, see CareEverywhere HPV: negative 2022, see CareEverywhere History of abnormal pap: No Last mammogram: 2021 normal - dense breast Sexually active: Yes History of STDS: None Patient concerns for STD exposure: No. 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 History Comments: Sexual Activity: Yes; Male Contraception: No contraception data on record PAST MEDICAL HISTORY No date: MigrainePAST SURGICAL HISTORY 2003: PAST SURGICAL HISTORY OF Comment: benign lump, left breast, Biju Cancer FAMILY HISTORY Problem Relation Age of Onset None Father Breast Cancer Mother Early 40s, in remission Colon Cancer Other none Coronary Artery Disease Other none Diabetes Other none Alzheimer's Disease Maternal Grandmother late in life Cancer Paternal Aunt brain tumor SOCIAL HISTORY Social History Tobacco Use Smoking status: Never Smokeless tobacco: Never Substance Use Topics Alcohol use: No Drug use: No REVIEW OF SYSTEMS Abdomen: No abdominal pain, nausea, vomiting, diarrhea, or constipation. No bloating, early satiety, indigestion, or increased flatulence. Bladder: No dysuria, gross hematuria, urinary frequency, urinary urgency + stress incontinence Breast: No breast lumps, nipple d/c, overlying skin changes, redness or skin retraction. Allergies and current medication updated:Yes EXAM: BP 114/66 Ht 5' 8 (1.73m) Wt 135 lb (61.2kg) BMI 20.53 kg/(m2). GENERAL: pleasant, female in no apparent distress HEENT: Normocephalic, atraumatic, mucus membranes moist, and no lesions NECK: Supple, full range of motion, no adenopathy, and thyroid normal DERMATOLOGY: Normal, without lesions, non-icteric, and non-hirsute BREAST: soft, non-tender, symmetric, no dominant mass, normal nipple-areolar complex, no lymphadenopathy, and no nipple discharge CHEST: Normal inspiratory effort ABDOMEN: soft, non-tender, and no masses PELVIC: external genitalia normal, normal Bartholin's glands, urethra, Filley's glands, no vulvar lesions, no cervical lesions, + ectropic cervix, good vaginal support, physiologic discharge present, normal appearing perineal body and perianal region BIMANUAL: uterus normal size, shape and consistency, no adnexal masses, and non-tender NEURO: alert and oriented x3,exam grossly non-focal EXTREMITIES: normal ASSESSMENT/PLAN: 1) Health maintenance: Pap/HPV up to date 2022. Mammogram ordered and encouraged. Mother diagnosed in 40s. No BRCA testing done for patient. Discussed this as an option and medical genetics consult - to notify if she'd like to proceed. Mother's cancer was estrogen receptor + Nutrition, exercise and routine health maintenance exams reviewed. HPV vaccine: discussed 2) Contraception: Progestin - only contraceptives. R/B reviewed. 3) STD screening: Declined STD check. 4) Follow up one year or sooner as needed Julianne Valetnin APRN.MAUREEN [facility] 06-29-2024 History of Present illness Narrative Rosalva is a 43 year old No obstetric history on file. who presents for an annual gynecologic exam without complaints. Menses: no menses - progesterone only contraception Contraception: Progestin - only contraceptives and vasectomy HPV vaccine: No Last Pap: normal 2022, see CareEverywhere HPV: negative 2022, see CareEverywhere History of abnormal pap: No Last mammogram: 2021 normal - dense breast Sexually active: Yes History of STDS: None Patient concerns for STD exposure: No. 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 History Comments: Sexual Activity: Yes; Male Contraception: No contraception data on record PAST MEDICAL HISTORY No date: MigrainePAST SURGICAL HISTORY 2003: PAST SURGICAL HISTORY OF Comment: benign lump, left breast, Biju Cancer FAMILY HISTORY Problem Relation Age of Onset None Father Breast Cancer Mother Early 40s, in remission Colon Cancer Other none Coronary Artery Disease Other none Diabetes Other none Alzheimer's Disease Maternal Grandmother late in life Cancer Paternal Aunt brain tumor SOCIAL HISTORY Social History Tobacco Use Smoking status: Never Smokeless tobacco: Never Substance Use Topics Alcohol use: No Drug use: No REVIEW OF SYSTEMS Abdomen: No abdominal pain, nausea, vomiting, diarrhea, or constipation. No bloating, early satiety, indigestion, or increased flatulence. Bladder: No dysuria, gross hematuria, urinary frequency, urinary urgency + stress incontinence Breast: No breast lumps, nipple d/c, overlying skin changes, redness or skin retraction. Allergies and current medication updated:Yes EXAM: BP 114/66 Ht 5' 8 (1.73m) Wt 135 lb (61.2kg) BMI 20.53 kg/(m^2). GENERAL: pleasant, female in no apparent distress HEENT: Normocephalic, atraumatic, mucus membranes moist, and no lesions NECK: Supple, full range of motion, no adenopathy, and thyroid normal DERMATOLOGY: Normal, without lesions, non-icteric, and non-hirsute BREAST: soft, non-tender, symmetric, no dominant mass, normal nipple-areolar complex, no lymphadenopathy, and no nipple discharge CHEST: Normal inspiratory effort ABDOMEN: soft, non-tender, and no masses PELVIC: external genitalia normal, normal Bartholin's glands, urethra, Filley's glands, no vulvar lesions, no cervical lesions, + ectropic cervix, good vaginal support, physiologic discharge present, normal appearing perineal body and perianal region BIMANUAL: uterus normal size, shape and consistency, no adnexal masses, and non-tender NEURO: alert and oriented x3,exam grossly non-focal EXTREMITIES: normal ASSESSMENT/PLAN: 1) Health maintenance: Pap/HPV up to date 2022. Mammogram ordered and encouraged. Mother diagnosed in 40s. No BRCA testing done for patient. Discussed this as an option and medical genetics consult - to notify if she'd like to proceed. Mother's cancer was estrogen receptor + Nutrition, exercise and routine health maintenance exams reviewed. HPV vaccine: discussed 2) Contraception: Progestin - only contraceptives. R/B reviewed. 3) STD screening: Declined STD check. 4) Follow up one year or sooner as needed Julianne Valentin APRN.[employer] documented in this encounter [facility] Evaluation note No assessment inform ation available [facility] Work Phone: Evaluation note Diagnosis Family history of malignant neoplasm of breast- Primary Encounter for gynecological examination (general) (routine) without abnormal findings Screening for cervical cancer Screening for malignant neoplasm of the cervix Encounter for screening for human papillomavirus (HPV) Special screening examination for human papillomavirus (HPV) Encounter for screening mammogram for breast cancer Dense breast tissue [facility] Diagnosis Encounter for gynecological examination (general) (routine) without abnormal findings Encounter for screening mammogram for breast cancer Dense breast tissue [facility] Diagnosis Abnormal mammogram- Primary Abnormal mammogram, unspecified documented in this encounter [facility] note* Diagnosis Acute cough- Primary Rhinosinusitis Unspecified sinusitis (chronic) Acute cough [facility]* Diagnosis Acute cough documented in this encounter [facility] note* Diagnosis Abnormal mammogram Abnormal mammogram, unspecified documented in this encounter [facility] note* Diagnosis Abnormal mammogram Abnormal mammogram, unspecified documented in this encounter [facility] note* Diagnosis Abnormal mammogram- Primary Abnormal mammogram, unspecified documented in this encounter [facility] note* Diagnosis Breast disorder- Primary Unspecified breast disorder documented in this encounter [facility] note* Diagnosis Breast disorder Unspecified breast disorder [facility]* Diagnosis Subacute cough- Primary Cough Subacute cough Cough documented in this encounter [facility] note* Diagnosis Subacute cough Cough documented in this encounter [facility] note* Diagnosis Abnormal mammogram- Primary Abnormal mammogram, unspecified History of breast biopsy Other postprocedural status documented in this encounter [facility] for referral (narrative)* Diagnostic Procedure Only (Routine) - Authorized Specialty Diagnoses / Procedures Referred By Alison juarez Referred To Contact [facility] Diagnoses Encounter for gynecological examination (general) (routine) without abnormal findings Encounter for screening mammogram for breast cancer Dense breast tissue Procedures IVA SCREENING W ZAK SCREENING DIGITAL BREAST TOMOSYNTHESIS BI SCREENING MAMMOGRAPHY BI 2-VIEW BREAST INC CAD Julianne Valentin APRN.CNP [address] [place] [address] [place] [phone] Referral ID Status Reason Start Date Expiration Date Visits Requested Visits Authorized [id number] Authorized Auto-Generat ed Referral 06/29/2024 07/29/2025 1 1 [facility] for referral (narrative)* Diagnostic Procedure Only (Routine) - New Request Specialty Diagnoses / Procedures Referred By Alison juarez Referred To Contact [facility] Diagnoses Abnormal mammogram Procedures US BREAST LTD LEFT US BREAST UNI REAL TIME WITH IMAGE LIMITED Julianne Valentin APRN.CNP [address] [place] [address] [facility] [address] [place] [address] Referral ID Status Reason Start Date Expiration Date Visits Requested Visits Authorized [id number] New Request Auto-Generat ed Referral 4 09/23/2025 1 1 * Diagnostic Procedure Only (Routine) - New Request Specialty Diagnoses / Procedures Referred By Contac t Referred To Contact [facility] Diagnoses Abnormal mammogram Procedures IVA DIAGNOSTIC LEFT DIAGNOSTIC MAMMOGRAPHY COMPUTER-AIDED DETCJ Julianne Quijano APRN.[employer]LE [address] [place] [address] [facility] [address] [place] [address] Referral ID Status Reason Start Date Expiration Date Visits Requested Visits Authorized [id number] New Request Auto-Generat ed Referral 4 09/23/2025 1 1 [facility] for referral (narrative)* Diagnostic Procedure Only (Routine) - Authorized Specialty Diagnoses / Procedures Referred By Contac t Referred To Contact [facility] Diagnoses Breast disorder Procedures IVA STEREO BX BREAST LEFT BX BREAST W/DEVICE 1ST [facility]ERE[facility] Enrike Novak MD [address] [id number] [facility] [address] [place] [address] Referral ID Status Reason Start Date Expiration Date Visits Requested Visits Authorized [id number] Authorized Auto-Generat ed Referral 4 11/25/2025 1 1 [facility] for referral (narrative)* Diagnostic Procedure Only (Routine) - Closed Specialty Diagnoses / Procedures Referred By Contac t Referred To Contact [facility] Diagnoses Breast disorder Procedures IVA STEREO BX BREAST LEFT BX BREAST W/DEVICE 1ST [facility] STEREOTACT[facility] Enrike Novak MD [address] [place] [address] [facility] [address] [place] [address] Referral ID Status Reason Start Date Expiration Date V isits Requested Visits Authorized [id number] Closed Auto-Generate d Referral 10/26/2024 11/25/2025 1 1 [facility] for visit Narrative* Diagnostic Procedure Only (Routine) - Closed Specialty Diagnoses / Procedures Referred By Contac t Referred To Contact [facility] Diagnoses Encounter for gynecological examination (general) (routine) without abnormal findings Encounter for screening mammogram for breast cancer Dense breast tissue Procedures IVA SCREENING W ZAK SCREENING DIGITAL BREAST TOMOSYNTHESIS BI SCREENING MAMMOGRAPHY BI 2-VIEW BREAST INC CAD Julianne Valentin APRN.CNP [address] [place] [address] [facility] [address] [place] [address] Referral ID Status Reason Start Date Expiration Date V isits Requested Visits Authorized [id number] Closed Auto-Generate d Referral 06/29/2024 07/29/2025 1 1 [facility] for visit Narrative* Diagnostic Procedure Only (Routine) - Closed Specialty Diagnoses / Procedures Referred By Alison t Referred To Contact [facility] Diagnoses Abnormal mammogram Procedures IVA DIAGNOSTIC LEFT DIAGNOSTIC MAMMOGRAPHY COMPUTER-AIDED DETCJ UNI Julianne Valentin APRN.[employer] [address] [place] [address] [facility] [address] [place] [address] Referral ID Status Reason Start Date Expiration Date V isits Requested Visits Authorized [id number] Closed Auto-Generate d Referral 08/24/2024 09/23/2025 1 1 [facility] for visit Narrative* Diagnostic Procedure Only (Routine) - Authorized Specialty Diagnoses / Procedures Referred By Alison t Referred To Contact [facility] Diagnoses Abnormal mammogram Procedures US BREAST LTD LEFT US BREAST UNI REAL TIME WITH IMAGE LIMITED Julianne Valentin APRN.[employer] [address] [place] [address] [facility] [address] [place] [address] Referral ID Status Reason Start Date Expiration Date Visits Requested Visits Authorized [id number] Authorized Auto-Generat ed Referral 09/23/2025 1 1 [facility]* Diagnostic Procedure Only (Routine) - Closed Specialty Diagnoses / Procedures Referred By Contac t Referred To Contact [facility] Diagnoses Breast disorder Procedures IVA STEREO BX BREAST LEFT BX BREAST W/DEVICE 1ST [facility] STEREOTACTIC GUID Enrike Lewis MD [address] [place] [address] [facility] [address] [place] [address] Referral ID Status Reason Start Date Expiration Date V isits Requested Visits Authorized [id number] Closed Auto-Generate d Referral 10/26/2024 11/25/2025 1 1 [facility] Summary Purpose Family History No Family History Records Found Breast Cancer Status:Active Comments:Mother. Father Status:Active Comments: d. prostate cancer Mother Status:Active Comments:In [email or web address]. breast cancer dx in 40's, recurrence at age 66 Prostate Cancer Status:Active Comments:Father. Breast Cancer Status:Active Comments:Mother. Father Status:Active Comments: d. prostate cancer Mother Status:Active Comments:In [email or web address]. breast cancer dx in 40's, recurrence at age 66 Prostate Cancer Status:Active Comments:Father. Breast Cancer Status:Active Comments:Mother. Father Status:Active Comments: d. prostate cancer Mother Status:Active Comments:In [email or web address]. breast cancer dx in 40's, recurrence at age 66 Prostate Cancer Status:Active Comments:Father. Breast Cancer Status:Active Comments:Mother. Father Status:Active Comments: d. prostate cancer Mother Status:Active Comments:In [email or web address]. breast cancer dx in 40's, recurrence at age 66 Prostate Cancer Status:Active Comments:Father. Advance Directives No Advanced Directives Records FoundNo Advanced Directives Records FoundNo Advanced Directives Records FoundNo Advanced Directives Records FoundNo Advanced Directives Records Found Chief Complaint and Reason for Visit Chief Complaint SCREENING Chief Complaint FAMILY HX OF BREAST CA Reason for Referral Specialty Diagnoses / Procedures Referred By Contkelly t Referred To Contact General Surgery Diagnoses Abnormal mammogram Procedures CONSULT TO GENERAL SURGERY OFFICE/OUTPATIENT [facility] 60 MINUTES Julianne Valentin APRN.[employer] [address] [place] [address] Referral ID Status Reason Start Date Expiration Date Visits Requested Visits Authorized [id number] Authorized PCP Requested Referral 4 10/25/2025 1 1 Additional Source Comments INFORMATION SOURCE (unrecogn ized section and content) DATE CREATED AUTHOR 10/03/2019 [facility] DATE CREATED AUTHOR AUTHOR'S ORGANIZ ATION 01/16/2020 [facility] DATE CREATED AUTHOR AUTHOR'S ORGANIZ ATION 08/22/2023 [facility] DATE CREATED AUTHOR AUTHOR'S ORGANIZ ATION 06/08/2024 [facility] DATE CREATED AUTHOR AUTHOR'S ORGANIZ ATION 05/05/2025 [facility] Goals (unrecognized section and content) Goals may be documented in a n alternate sectionGoals may be documented in an alternate sectionGoals may be documented in an alternate section Care Teams (unrecognized sec tion and content) Team Status: Active Member Role Status Dates Dr. Rodolfo Parson MD Family Provider Active GLADIS George Primary Care Provider Active Team Status: Inactive Member Role Status Dates GLADIS George Primary Care Provider Active Dr. Kristi Muñoz DO Attending Provider, Trung cole Provider Active Sr Account Executive Relationship Specialty Start Date End Date Fernando Shaw MD [address] [place] [address] PCP - General Family Medicine 05/12/12 01/05/18 PcpCaitlyn APRN PCP - General 01/06/18 08/14/18 Source Comments (unrecognize d section and content) In the event this informatio n is protected by the Federal Confidentiality of Alcohol and Drug Abuse Patient Records regulations: The Federal rules restrict any use of the information to criminally investigate or prosecute any alcohol or drug abuse patient.[facility] the event this information is protected by the Federal Confidentiality of Alcohol and Drug Abuse Patient Records regulations: The Federal rules restrict any use of the information to criminally investigate or prosecute any alcohol or drug abuse patient.[facility] Center[facility] the event this information is protected by the Federal Confidentiality of Alcohol and Drug Abuse Patient Records regulations: The Federal rules restrict any use of the information to criminally investigate or prosecute any alcohol or drug abuse patient.[facility] Center[facility] the event this information is protected by the Federal Confidentiality of Alcohol and Drug Abuse Patient Records regulations: The Federal rules restrict any use of the information to criminally investigate or prosecute any alcohol or drug abuse patient.[facility] Center[facility] the event this information is protected by the Federal Confidentiality of Alcohol and Drug Abuse Patient Records regulations: The Federal rules restrict any use of the information to criminally investigate or prosecute any alcohol or drug abuse patient.[facility] Center[facility] the event this information is protected by the Federal Confidentiality of Alcohol and Drug Abuse Patient Records regulations: The Federal rules restrict any use of the information to criminally investigate or prosecute any alcohol or drug abuse patient.[facility] Center[facility] the event this information is protected by the Federal Confidentiality of Alcohol and Drug Abuse Patient Records regulations: The Federal rules restrict any use of the information to criminally investigate or prosecute any alcohol or drug abuse patient.[facility] Center[facility] the event this information is protected by the Federal Confidentiality of Alcohol and Drug Abuse Patient Records regulations: The Federal rules restrict any use of the information to criminally investigate or prosecute any alcohol or drug abuse patient.[facility] Center[facility] the event this information is protected by the Federal Confidentiality of Alcohol and Drug Abuse Patient Records regulations: The Federal rules restrict any use of the information to criminally investigate or prosecute any alcohol or drug abuse patient.[facility] Center[facility] the event this information is protected by the Federal Confidentiality of Alcohol and Drug Abuse Patient Records regulations: The Federal rules restrict any use of the information to criminally investigate or prosecute any alcohol or drug abuse patient.[facility] Center[facility] the event this information is protected by the Federal Confidentiality of Alcohol and Drug Abuse Patient Records regulations: The Federal rules restrict any use of the information to criminally investigate or prosecute any alcohol or drug abuse patient.[facility] Center[facility] the event this information is protected by the Federal Confidentiality of Alcohol and Drug Abuse Patient Records regulations: The Federal rules restrict any use of the information to criminally investigate or prosecute any alcohol or drug abuse patient.[facility] Center[facility] the event this information is protected by the Federal Confidentiality of Alcohol and Drug Abuse Patient Records regulations: The Federal rules restrict any use of the information to criminally investigate or prosecute any alcohol or drug abuse patient.[facility] CenterIn the event this information is protected by the Federal Confidentiality of Alcohol and Drug Abuse Patient Records regulations: The Federal rules restrict any use of the information to criminally investigate or prosecute any alcohol or drug abuse patient.[facility] CenterIn the event this information is protected by the Federal Confidentiality of Alcohol and Drug Abuse Patient Records regulations: The Federal rules restrict any use of the information to criminally investigate or prosecute any alcohol or drug abuse patient.[facility] CenterIn the event this information is protected by the Federal Confidentiality of Alcohol and Drug Abuse Patient Records regulations: The Federal rules restrict any use of the information to criminally investigate or prosecute any alcohol or drug abuse patient.[facility] CenterIn the event this information is protected by the Federal Confidentiality of Alcohol and Drug Abuse Patient Records regulations: The Federal rules restrict any use of the information to criminally investigate or prosecute any alcohol or drug abuse patient.[facility] Reason for Visit (unrecogniz ed section and content) Reason Comments Well Woman Reason Comments Results Reason Comments Mammogram Result Call Back left breast d iag iva and us cb per ah Reason Comments Patient Question Reason Comments Cough Head and chest conge stion x2 weeks Reason Comments Results Reason Comments Radio Imaging Study Comments Reason Comments Results Reason Comments Cough Chest Congestion Headache Reason Comments Orders FOR RECORDS PERTAINING TO PATIENTS WHO ARE OR HAVE BEEN ENROLLED IN A CHEMICAL DEPENDENCY/SUBSTANCEABUSE PROGRAM, SOME INFORMATION MAY BE OMITTED. This clinical summary was aggregated from multiple sources. Caution should be exercised in using it in the provision of clinical care. This summary normalizes information from multiple sources, and as a consequence, information in this document may materially change the coding, format and clinical context of patient data. In addition, data may be omitted in some cases. CLINICAL DECISIONS SHOULD BE BASED ON THE PRIMARY CLINICAL RECORDS. [facility] [employer] provides no warranty or guarantee of the accuracy or completeness of information in this document.
--- NOTE | 2025-06-02 14:26 | EX.ED.DYSGE1 ---
HPI History of Present Illness Chief Complaint: Palpitations Informant: patient and spouse/S.O. Narrative Narrative: Presents with spouse for evaluation reporting intermittent palpitations. Her watch has alerted her 3 times the last 24 hours of concerning A-fib. Patient reports she worked out today was more short of breath than normal. They did return from a trip by car was 8 hours no leg swelling no leg cramping. She states she had a couple alerts in November similar that she ignored. No recent cough no recent vomiting or diarrhea. She does report intermittent energy drink use with her exercises. Intermittent chest pain per patient. No cardiac history no tobacco history. Denies hypertension diabetes or any stroke history. No diagnosis of A-fib. Patient's phone reviewed with her rhythm strip at approximately 12:50 PM today with alert. Irregular heart rate was 110 intermittent P waves noted. Prior similar symptoms: Yes PFSH PFSH Home Medications ?Medication ?Instructions ?Recorded ?Last Taken ?Type norethindrone (contraceptive) 0.35 0.35 mg PO DAILY 06/02/25 Unknown History mg tablet (Incassia) Allergy/AdvReac Type Severity Reaction Status Date / Time No Known Allergies Allergy Verified 06/02/25 14:02 Social History Smoking Status: Never smoker ROS ROS ED Constitutional Constitutional ED: Denies chills, fever(s) or sweats ENT ENT ED: Denies sore throat Cardiovascular Cardiovascular: Reports palpitations and racing heartbeat; Denies chest pain or leg edema Respiratory/Chest Respiratory/Chest: Denies cough, dyspnea or dyspnea on exertion Gastrointestinal Gastrointestinal: Denies abdominal pain, diarrhea, nausea or vomiting Genitourinary Genitourinary ED: Denies dysuria, hematuria or urinary frequency Musculoskeletal Musculoskeletal: Denies back pain, extremity pain or neck pain Integumentary Denies rash or wounds Neurologic Neurologic: Denies headache(s), paresthesias or weakness EXAM Physical Exam Const Vital Signs: 06/02/25 14:01 06/02/25 14:37 06/02/25 16:00 Temperature 97.9 F Temperature Source Oral Pulse Rate 96 86 Respiratory Rate 18 20 H Respiratory Effort Normal Blood Pressure 94/75 90/76 Blood Pressure Mean 81 80 Pulse Ox 98 99 Oxygen Delivery Method Room Air 06/02/25 16:50 Temperature 97.4 F L Temperature Source Pulse Rate 92 Respiratory Rate 16 Respiratory Effort Blood Pressure 94/68 Blood Pressure Mean 76 Pulse Ox 100 Oxygen Delivery Method Positive well nourished and well developed General Appearance ED: well developed and NAD HEENT Reports moist mucous membranes normocephalic and atraumatic Eyes General Eye ED: Yes normal appearance of both eyes Neck full ROM Chest Wall Chest: Negative for tenderness Resp normal respiratory effort and normal air movement Effort and Inspection: symmetric chest movement; Negative for respiratory distress Cardio regular rate and no murmurs Rhythm: abnormal rhythm Peripheral Pulses: pulses 2+ throughout GI normal to inspection, nondistended, normoactive bowel sounds and non-tender Palpation: Negative for guarding or rebound tenderness present Extremity normal to inspection General Extremety ED: Negative for edema or tenderness General Extremity: Negative for edema Neuro oriented x3 and no sensory deficits noted Sensorium / Orientation: awake and alert Skin no rashes or lesions noted and no wounds MDM MDM MDM Narrative Medical decision making narrative: Interventions / MDM: Differential diagnosis: New onset atrial fibrillation Diagnosis considered but do not suspect: PE however D-dimer negative. My EKG interpretation: A-fib rate of 80, no ST changes. Imaging independently reviewed and interpreted by myself: 1 view chest x-ray no acute process. Also read by radiology. External documents reviewed: N/A Test considered but not ordered:N/A ED course: Patient heart rate sounded irregular on the monitor. Irregular heart rate from 80s to 100s fluctuating. Nontoxic no focal deficits. EKG ordered laboratory studies ordered including D-dimer with her recent travel and reported dyspnea. No leg swelling or cramping. EKG confirms A-fib rate controlled. 1630: Lab work all normal including TSH electrolytes troponin and D-dimer. Chest x-ray obtained hyperinflated lungs were no acute findings. Heart rate fluctuate 80 to low 100s. Blood pressure in the 90s likely normal for the patient. CHADS2 Vascor is of 1 for female. I did discuss with clinical advisor on-call Dr. Patel, no indication for rate control at this time specially with lower blood pressures. He recommends at least aspirin therapy for anticoagulants. I did discuss with patient if she wants more aggressive treatment for Eliquis however we will go with cardiology recommendations with aspirin at this time. She will avoid strenuous activity she will avoid caffeine. She will follow-up with cardiology as an outpatient further evaluation and treatment options. All questions were answered. Re-evaluation: stable Disposition discussed with patient/family/significant other: Patient and spouse Case discussed with consulting clinician: Cardiology This note was generated with [email or web address] dictation software. It may contain incorrect words, spelling, and punctuation that were not noted in checking the note before signing. Lab Data Attestation: I reviewed the patient's lab results. Labs: Laboratory Results - last 24 hr 06/02/25 14:28 WBC 9.7 RBC 4.36 Hgb 14.3 Hct 39.8 MCV 91.3 MCH 32.8 H MCHC 35.9 RDW Std Deviation 42.8 RDW Coeff of Shayna 12.8 Plt Count 380 MPV 7.9 Immature Gran % (Auto) 0.300 Neut % (Auto) 70.8 H Lymph % (Auto) 18.1 L [place] % (Auto) 9.7 Eos % (Auto) 0.6 Baso % (Auto) 0.5 Absolute Neuts (auto) 6.9 Absolute Lymphs (auto) 1.76 Nucleated RBC % 0 PT 13.4 INR 1.0 APTT 25.7 D-Dimer Quant (PE/DVT) 0.27 Sodium 135 Potassium 3.9 Chloride 103 Carbon Dioxide 23.2 Anion Gap 9 BUN 25 H Creatinine 1.00 Estim Creat Clear Calc 71.67 Est GFR (MDRD) Non-Af 71 BUN/Creatinine Ratio 25.0 H Glucose 90 Calcium 9.0 Troponin T High Sens 9 TSH 1.490 Radiography Diagnostic Testing: Clinical Impression(s) from Imaging Studies Chest X-Ray 06/02/25 15:33 IMPRESSION: COPD. No acute findings. Reading Location: [id number] Discharge Plan Triage Chief Complaint: Palpitations ED Provider: Joce Reid Dx/Rx/DC Orders Clinical Impression: Atrial fibrillation with controlled ventricular rate, Palpitations Instructions: AFib Dc Prescriptions: No Action norethindrone (contraceptive) [Incassia] 0.35 mg tablet 0.35 mg PO DAILY Primary Care Provider: Lelia Mitchell Referrals: Abdon Gabriel MD [Med Staff - Active Staff] - 2 Days Leila Mitchell PA [Primary Care Provider] - Activity Restrictions/Additional Instructions: New atrial fibrillation rate controlled in the ED. Labs were normal including D-dimer and thyroid panels. Discussed with clinical advisor Dr. Patel take full dose aspirin 325 daily. Call the office, on Wednesday for follow-up evaluation. Avoid strenuous activities at this time. Avoid caffeine or energy drinks at this time. Print Language: Swazi Disposition Disposition: Home, Self Care Discharge Date/Time: 06/02/25 16:51
[2025-06-02 14:46] LABS: Hematocrit 39.8 % (37-47); Hemoglobin 14.3 g/dL (12.0-15.0); Immature Granulocytes Count 0.030 X10^3/uL (0.0-0.0); Mean Corp Hgb Conc 35.9 g/dL (32-36); Mean Corpuscular Volume 91.3 fL (81-99); Mean Platelet Vol. 7.9 fl (6.2-12.0); NRBC Flagged by Analyzer 0 % (0-5); Platelet Count 380 K/mm3 (150-450); RBC Distribution Width CV 12.8 % (11.6-14.6); RBC Distribution Width SD 42.8 fl (35.1-43.9); Red Blood Count 4.36 M/mm3 (4.2-5.4); White Blood Count 9.7 K/mm3 (4.4-11.0)
[2025-06-02 14:58] LABS: Partial Thromboplast Time 25.7 Seconds (24.1-36.2); Prothrombin Time (Protime)PT. 13.4 SECONDS (11.7-14.9)
[2025-06-02 15:21] LABS: Troponin T High Sensitivity 9 ng/L (<=14)
[2025-06-02 15:32] LABS: D-Dimer Quantitative (DVT/PE) 0.27 FEU/ug/m (0.27-0.49)
[2025-06-02 15:33] LABS: Anion Gap 9 (5-15); BUN 25 mg/dL (4-19); BUN/Creat Ratio 25.0 RATIO (10-20); Calcium,Total 9.0 mg/dL (7.6-11.0); Carbon Dioxide 23.2 mmol/L (21.0-32.0); Chloride 103 mmol/L (98-108); Estimated Creatinine Clearance 71.67 ml/min (50-250); Glucose 90 mg/dL (70-99); Potassium 3.9 mmol/L (3.3-5.1)
--- NOTE | 2025-06-02 15:33 | RAD_ITS ---
PROCEDURE: CHEST 1 VIEW (PORTABLE) 06/02/2025 REASON FOR EXAM: AFIB TECHNIQUE: Frontal view of the chest. COMPARISON: None. FINDINGS: Hardware: None. Heart: The heart size is normal. Lungs: Findings of emphysema/COPD. Bibasilar atelectasis/scarring. No focal consolidation, pleural effusion or pneumothorax. Bones: The bones are unremarkable. RAD/Chest 1 View (Portable) IMPRESSION: COPD. No acute findings. Reading Location: [id number]
--- NOTE | 2025-06-02 15:35 | CM.ED ---
Social Work Date of referral: 06/02/25 Reason for referral: No Advanced Care Directives (ACD's) on file Referred by: Social Work identification Patient provided consent for Social Work visit. Patient's at bedside. Registered Nurse Maternal Child requested a copy of ACD's which patient stated she will bring in. No other services requested at this time. Taylor Roman, BAND CUTTER, [employer]TERATION [employer]
[2025-06-02 16:00] VITALS: BP 90/76; PULSE 86; RESP 20; O2SAT 99
[2025-06-02 16:50] VITALS: BP 94/68; PULSE 92; RESP 16; TEMP 36.3; O2SAT 100
== END 2025-06-02 16:51 | disposition home or self-care (01) ==
PROVIDERS: Emergency Provider Emergency Medicine; PCP Physician Assistant; Referring Provider Emergency Medicine; Visit Provider Emergency Medicine
DX: I48.91 Unspecified atrial fibrillation (principal); R00.2 Palpitations
CPT/HCPCS: 71045; 80048; 84443; 84484; 85025; 85379; 85610; 85730; 93005; 99284; A4216